=== PATIENT | male | born 1940 | race Caucasian/White ===

== ENCOUNTER 2016-08-04 14:59 | Emergency (ER) | payer MEDICARE ==
[~2016-08-04 14:59] MED LIST: ALDA2525 PO; ALPR2TAB3 PO; AMLO2.5T PO; CYCL1PAK PO; CYMB30CA PO; FLEEENE3 RE; JANT5TAB2 PO; LOSA50TA PO; OXYC-68 PO; PERC7.5T13 PO; POLY119S PO; ZOLP10TA3 PO
[2016-08-04 15:01] VITALS: BP 185/97; PULSE 95; RESP 17; TEMP 97.7; O2SAT 94
--- NOTE | 2016-08-04 15:06 | PD ---
Physical Exam Date Seen by Provider: Aug 04, 2016 Time Seen by Provider: 15:02 Narrative Pt c/o chest pain in left upper chest x 1 week. Pt has dementia and states he has been depressed and crying. states for the last 3 weeks he has been more confused. No recent falls. reports that he has frequency and urgency. VSS. Data Data Last Documented VS Vital Signs Date Time Temp Pulse Resp B/P Pulse Ox O2 Delivery O2 Flow Rate FiO2 08/04/16 15:01 97.7 95 17 185/97 94 MDM Supervised Visit with ADAM: Reena Klein Aug 04, 2016 15:06
[2016-08-04 15:34] VITALS: BP 164/81; PULSE 83; O2SAT 93
[2016-08-04 15:45] VITALS: O2SAT 93
[2016-08-04] MEDS ORDERED: SODIUM CHLORIDE 0.9% FLUSH 10 ML FLUSH IVF PRN (15:45)
[2016-08-04] MEDS ORDERED: ASPIRIN 81 MG CHEW TAB PO ONE (15:45)
[2016-08-04 15:59] LABS: BASOPHIL # 0.1 TH/MM3 (0-0.2); BASOPHIL % 0.8 % (0.0-2.0); EOSINOPHIL # 0.3 TH/MM3 (0-0.4); EOSINOPHIL % 2.8 % (0.0-4.0); HEMATOCRIT 45.8 % (39.0-51.0); HEMO FLAGS DIFF FINAL; LYMPH % 18.3 % (9.0-44.0); LYMPHOCYTE # 2.1 TH/MM3 (1.0-4.8); MEAN CORPUSCULAR HEMOGLOBIN 30.8 PG (27.0-34.0); MEAN CORPUSCULAR HGB CONC 34.6 % (32.0-36.0); MONO % 8.9 % (0.0-8.0); NEUT % 69.2 % (16.0-70.0); PLATELET COUNT 296 TH/MM3 (150-450); RED BLOOD COUNT 5.14 MIL/MM3 (4.50-5.90); RED CELL DISTRIBUTION WIDTH 13.4 % (11.6-17.2); WHITE BLOOD COUNT 11.6 TH/MM3 (4.0-11.0)
[2016-08-04] MEDS ORDERED: LOSA100T PO (16:06)
[2016-08-04] MEDS ORDERED: MOBI15TA PO (16:06)
[2016-08-04] MEDS ORDERED: ALPR.5 PO (16:06)
[2016-08-04] MEDS ORDERED: ZOLP10TA3 PO (16:06)
[2016-08-04] MEDS ORDERED: CYMB60CA PO (16:06)
[2016-08-04] MEDS ORDERED: GABA100C4 PO (16:06)
[2016-08-04] MEDS ORDERED: HYDR-3535 PO (16:06)
[2016-08-04] MEDS ORDERED: AMLO5TAB2 PO (16:06)
--- NOTE | 2016-08-04 16:08 | RADRPT ---
EXAM DATE/TIME: 08/04/2016 15:45 [facility] COMPARISON: No previous studies available for comparison. INDICATIONS : Chest pain and discomfort for the past two weeks. MEDICAL HISTORY : Hypertension. SURGICAL HISTORY : CABG Appendectomy.Cholecystectomy. ENCOUNTER: Initial ACUITY: 2 weeks PAIN SCORE: 5/10 LOCATION: Bilateral chest FINDINGS: A single view of the chest demonstrates the lungs to be symmetrically aerated without evidence of mas s, infiltrate or effusion. The cardiomediastinal contours are unremarkable. Osseous structures are intact. The patient is status post median sternotomy for coronary artery bypass grafting procedure. T here are overlying Electrocardiogram leads. CONCLUSION: No acute disease. Ishan Mccloud MD on August 04, 2016 at 16:04 Board Certified Radiologist. This report was verified electronically.
[2016-08-04 16:10] LABS: APTT (PATIENT) 29.2 SEC (24.3-30.1); PROTHROMBIN TIME - PATIENT 11.4 SEC (9.8-11.6)
[2016-08-04 16:19] LABS: ALT (GPT) 28 U/L (12-78); ANION GAP 11 MEQ/L (5-15); AST (GOT) 28 U/L (15-37); BICARBONATE 25.6 MEQ/L (21.0-32.0); BLOOD UREA NITROGEN 22 MG/DL (7-18); CHLORIDE 105 MEQ/L (98-107); GLOMERULAR FILTRATION RATE 49 ML/MIN (>89); SODIUM (NA) 142 MEQ/L (136-145)
[2016-08-04 16:20] LABS: ALKALINE PHOSPHATASE 84 U/L (45-117); TOTAL BILIRUBIN ADULT 0.7 MG/DL (0.2-1.0)
[2016-08-04 16:23] LABS: POTASSIUM 3.6 MEQ/L (3.5-5.1)
[2016-08-04 16:43] VITALS: BP 142/86; PULSE 81
[2016-08-04 17:36] LABS: BLOOD, URINE NEG (NEG); COMMENT (UR) CULT NOT INDICATED; CULTURE IF INDICATED CULT NOT INDICATED; GLUCOSE,URINE NEG (NEG); HYALINE CAST, URINE 16 /lpf (RARE); KETONE, URINE NEG (NEG); MUCUS URINE FEW /lpf (OCC); NITRITE,URINE NEG (NEG); PH, URINE 5.5 (5.0-8.5); URINE COLOR YELLOW (YELLW/STRAW)
--- NOTE | 2016-08-04 18:13 | PD ---
HPI Chief Complaint: Chest Pain Time Seen by Provider: 15:34 Travel History International Travel<30 days: No Contact w/Intl Traveler<30days: No Traveled to known affect area: No History of Present Illness HPI To 76 year-old woman who presents to the emergency department complaining of increased confusion for the past 3 weeks, crying nearly continuously, with a history dementia. Also over the past week is increased shortness of breath with dyspnea on exertion. He is some associated cough. Nonproductive. No fevers or chills. No lower extremity edema. All with this she's had some chest pain and chest tightness on the left side. Is been ongoing for the past 1 -2 weeks as well. Does seem to be worse with exertion. Patient is a history of CAD with a CABG back in the 90s. No problems since. On stress test about a year ago. History Past Medical History Narrative Medical CAD, CABG, [place] Hypertension Dementia Influenza Vaccination: No Social History Alcohol Use: No Tobacco Use: Yes (occ cigars) Allergies-Medications (Allergen,Severity, Reaction): Coded Allergies: No Known Allergies (Unverified , 08/04/16) Reported Meds & Prescriptions Reported Meds & Active Scripts Active Reported Losartan (Losartan Potassium) 100 Mg Tab 100 Mg PO DAILY Gabapentin 100 Mg Cap 100 Mg PO HS Zolpidem (Zolpidem Tartrate) 10 Mg Tab 10 Mg PO HS Lortab (Hydrocodone-Acetaminophen) 10-325 Mg Tab 1 Tab PO Q6H PRN Mobic (Meloxicam) 15 Mg Tab 15 Mg PO DAILY PRN Cymbalta DR (Duloxetine HCl) 60 Mg Capdr 60 Mg PO DAILY Amlodipine (Amlodipine Besylate) 5 Mg Tab 5 Mg PO DAILY Xanax (Alprazolam) 0.5 Mg Tab 0.5 Mg PO DAILY Review of Systems Except as stated in HPI: all other systems reviewed are Neg Physical Exam Narrative GENERAL: Well-appearing 76-year-old man, no acute distress. SKIN: Focused skin assessment warm/dry. HEAD: Atraumatic. Normocephalic. CARDIOVASCULAR: Regular rate and rhythm. No murmur appreciated. RESPIRATORY: No accessory muscle use. Clear to auscultation. Breath sounds equal bilaterally. GASTROINTESTINAL: Abdomen soft, non-tender, nondistended. Hepatic and splenic margins not palpable. MUSCULOSKELETAL: No obvious deformities. No edema. NEUROLOGICAL: Awake and alert. No obvious cranial nerve deficits. Motor grossly within normal limits. Normal speech. PSYCHIATRIC: Appropriate mood and affect; insight and judgment normal. Data Data Last Documented VS Vital Signs Date Time Temp Pulse Resp B/P Pulse Ox O2 Delivery O2 Flow Rate FiO2 08/04/16 17:23 Room Air 08/04/16 16:43 81 142/86 08/04/16 15:45 93 08/04/16 15:01 97.7 17 Orders Electrocardiogram (08/04/16 15:34) Complete Blood Count With Diff (08/04/16 15:34) Comprehensive Metabolic Panel (08/04/16 15:34) Magnesium (Mg) (08/04/16 15:34) Prothrombin Time / Inr (Pt) (08/04/16 15:34) Act Partial Throm Time (Ptt) (08/04/16 15:34) Troponin I (08/04/16 15:34) Lipase (08/04/16 15:34) Chest, Single Ap (08/04/16 15:34) Ecg Monitoring (08/04/16 15:34) Bilateral Bp Monitoring (08/04/16 15:34) Iv Access Insert/Monitor (08/04/16 15:34) Oximetry (08/04/16 15:34) Oxygen Administration (08/04/16 15:34) Aspirin Chew (Aspirin Chew) (08/04/16 15:45) Sodium Chloride 0.9% Flush (Ns Flush) (08/04/16 15:45) Urinalysis - C+S If Indicated (08/04/16 15:43) Labs Laboratory Tests Test 08/04/16 08/04/16 15:35 17:22 White Blood Count 11.6 TH/MM3 Red Blood Count 5.14 MIL/MM3 Hemoglobin 15.8 GM/DL Hematocrit 45.8 % Mean Corpuscular Volume 89.0 FL Mean Corpuscular Hemoglobin 30.8 PG Mean Corpuscular Hemoglobin 34.6 % Concent Red Cell Distribution Width 13.4 % Platelet Count 296 TH/MM3 Mean Platelet Volume 7.9 FL Neutrophils (%) (Auto) 69.2 % Lymphocytes (%) (Auto) 18.3 % Monocytes (%) (Auto) 8.9 % Eosinophils (%) (Auto) 2.8 % Basophils (%) (Auto) 0.8 % Neutrophils # (Auto) 8.0 TH/MM3 Lymphocytes # (Auto) 2.1 TH/MM3 Monocytes # (Auto) 1.0 TH/MM3 Eosinophils # (Auto) 0.3 TH/MM3 Basophils # (Auto) 0.1 TH/MM3 CBC Comment DIFF FINAL Differential Comment Prothrombin Time 11.4 SEC Prothromb Time International 1.0 RATIO Ratio Activated Partial 29.2 SEC Thromboplast Time Sodium Level 142 MEQ/L Potassium Level 3.6 MEQ/L Chloride Level 105 MEQ/L Carbon Dioxide Level 25.6 MEQ/L Anion Gap 11 MEQ/L Blood Urea Nitrogen 22 MG/DL Creatinine 1.41 MG/DL Estimat Glomerular Filtration 49 ML/MIN Rate Random Glucose 135 MG/DL Calcium Level 9.3 MG/DL Magnesium Level 2.0 MG/DL Total Bilirubin 0.7 MG/DL Aspartate Amino Transf 28 U/L (AST/SGOT) Alanine Aminotransferase 28 U/L (ALT/SGPT) Alkaline Phosphatase 84 U/L Troponin I 0.02 NG/ML Total Protein 7.8 GM/DL Albumin 3.9 GM/DL Lipase 212 U/L Urine Color YELLOW Urine Turbidity CLEAR Urine pH 5.5 Urine Specific [place] 1.019 Urine Protein TRACE mg/dL Urine Glucose (UA) NEG mg/dL Urine Ketones NEG mg/dL Urine Occult Blood NEG Urine Nitrite NEG Urine Bilirubin NEG Urine Urobilinogen 2.0 MG/DL Urine Leukocyte Esterase NEG Urine RBC 2 /hpf Urine WBC 1 /hpf Urine Hyaline Casts 16 /lpf Urine Mucus FEW /lpf Microscopic Urinalysis Comment CULT NOT INDICATED MDM Medical Decision Making Medical Screen Exam Complete: Yes Emergency Medical Condition: Yes Interpretation(s) Normal sinus rhythm at a rate of 86, normal axis, normal intervals, no definite evidence of acute ischemia. Some nonspecific lateral ST changes. No old for comparison. LABS: CBC is unremarkable. CMP remarkable for mildly elevated BUN/creatinine Troponin negative Lipase normal Coags unremarkable UA unremarkable Chest x-ray:No acute disease. Differential Diagnosis ACS, infection, depression, delirium, dementia, other Narrative Course Medical decision making 76 year-old man presents emergent arm multiple complaints. Most notably is having some increase confusion and dementia symptoms with increased tearfulness and emotional lability. He is also having some chest pain and shortness of breath. Initial workup looks unremarkable. Patient will be a candidate for admission to chest pain Center for further evaluation however given the patient' s dementia, most lability, worsening confusion especially night, this will come at some risk. I spoke to the family and we discussed a comminuted prefer for the patient to follow-up with his outpatient doctor at home. I think this is reasonable given his age and comorbidities. Diagnosis Primary Impression: Chest pain Additional Instructions: Follow-up with her primary doctor in the next one to 2 days. Return to the emergency department worsening chest pain, trouble breathing, or any other new or worsening symptoms. Med/Other Pt SpecificInfo: No Change to Meds Disposition: 01 DISCHARGE HOME Condition: Stable Bahman Suero MD Aug 04, 2016 18:13
[2016-08-04 18:25] VITALS: BP 160/74
--- NOTE | 2016-08-05 10:49 | EKG ---
Date Performed: 08/04/2016 Time Performed: 15:16:47 PTAGE: 76 years EKG: Sinus rhythm MODERATE INTRAVENTRICULAR CONDUCTION DELAY NONSPECIFIC ST & T-WAVE ABNORMALITY BORDERLINE ECG Compar ed to prior tracing no significant change DOCTOR: Candi Ryder Interpretating Date/Time 08/05/2016 10:48:17
== END 2016-08-04 18:30 | disposition home or self-care (01) ==
LOC: NEPE 14:59
DX: R07.9 Chest pain, unspecified (principal); R06.02 Shortness of breath; R94.31 Abnormal electrocardiogram [ECG] [EKG]; F03.90 Unspecified dementia, unspecified severity, without behavioral disturbance, psychotic disturbance, mood disturbance, and anxiety
CPT/HCPCS: 71010; 80053; 81001; 83690; 83735; 84484; 85025; 85610; 85730; 93005

== ENCOUNTER 2016-11-04 10:09 | Emergency (ER) | payer MEDICARE ==
[~2016-11-04] VITALS: Ht 182.9 cm; Wt 82.5 kg
[~2016-11-04 10:09] MED LIST changes: -ALDA2525 PO; +ALPR.5 PO; -ALPR2TAB3 PO; -AMLO2.5T PO; +AMLO5TAB2 PO; -CYCL1PAK PO; -CYMB30CA PO; +CYMB60CA PO; -FLEEENE3 RE; +GABA100C4 PO; +HYDR-3535 PO; -JANT5TAB2 PO; +LOSA100T PO; -LOSA50TA PO; +MOBI15TA PO; -OXYC-68 PO; -PERC7.5T13 PO; -POLY119S PO
[2016-11-04 10:12] VITALS: BP 189/100; PULSE 92; RESP 20; TEMP 97.4; O2SAT 97
--- NOTE | 2016-11-04 12:25 | PD ---
HPI Chief Complaint: Neuro Symptoms/ Deficits Time Seen by Provider: 12:23 Travel History International Travel<30 days: No Contact w/Intl Traveler<30days: No Traveled to known affect area: No History of Present Illness HPI 76 YO M with PMH of lumbar stenosis with neurogenic claudication, degenerative cervical spinal stenosis, vertebral artery obstruction, stroke, CAD status post CABG 4, dementia presents to the ED for evaluation of 10 day history of malaise , intermittent dizziness, increased low back pain, unsteady gait, increased forgetfulness, depression. Patient endorses occasional left sided CP. Denies palpitations, SOB, N/V, abdominal pain, anorexia, melena, hematochezia, dysuria. Patient's is at bedside and states that "he falls all the time." Patient states that he has 15 brothers and sisters are all and "It's time that I join them." He denies suicidal or homicidal ideation. The is at bedside and states that the patient has been increasingly irritable with episodes of anger. PCP Dr. Henderson. [facility] Past Medical History Hx Anticoagulant Therapy: Yes Cardiovascular Problems: Yes (FOUR VESSEL CABG) High Cholesterol: Yes Chest Pain: Yes Cerebrovascular Accident: Yes Dementia: Yes Inguinal Hernia: Yes (surgical repair) Triglycerides - High: Yes Past Surgical History Abdominal Surgery: Yes (hernia) Cholecystectomy: Yes Coronary Artery Bypass Graft: Yes Social History Alcohol Use: No (hx) Tobacco Use: No (used to smoke ) Substance Use: No Allergies-Medications (Allergen,Severity, Reaction): Coded Allergies: No Known Allergies (Unverified , 11/04/16) Reported Meds & Prescriptions Reported Meds & Active Scripts Active Reported Wellbutrin Xl 24 HR (Bupropion HCl) 150 Mg Tab 150 Mg PO DAILY Hydrochlorothiazide 25 Mg Tab 25 Mg PO DAILY Galantamine ER (Galantamine Hydrobromide) 8 Mg Caper 8 Mg PO DAILY Losartan (Losartan Potassium) 100 Mg Tab 100 Mg PO DAILY Zolpidem (Zolpidem Tartrate) 10 Mg Tab 10 Mg PO HS Lortab (Hydrocodone-Acetaminophen) 10-325 Mg Tab 1 Tab PO Q6H PRN Mobic (Meloxicam) 15 Mg Tab 15 Mg PO DAILY PRN Cymbalta DR (Duloxetine HCl) 60 Mg Capdr 60 Mg PO DAILY Amlodipine (Amlodipine Besylate) 5 Mg Tab 5 Mg PO DAILY Xanax (Alprazolam) 0.5 Mg Tab 0.5 Mg PO DAILY PRN Review of Systems Except as stated in HPI: all other systems reviewed are Neg Physical Exam Narrative GENERAL: Well-nourished, well-developed elderly white male in no acute distress. SKIN: Focused skin assessment warm/dry. HEAD: Normocephalic. EYES: No scleral icterus. No injection or drainage. NECK: Supple, trachea midline. No JVD or lymphadenopathy. CARDIOVASCULAR: Regular rate and rhythm without murmurs, gallops, or rubs. CHEST: Nontender throughout without deformity or crepitus. No retractions or use of accessory muscles. RESPIRATORY: Breath sounds clear and equal bilaterally. No accessory muscle use. GASTROINTESTINAL: Abdomen soft, non-tender, nondistended. Active bowel sounds. MUSCULOSKELETAL: No cyanosis, or edema. Homans sign negative bilaterally. NEUROLOGICAL: Awake and alert. Cranial nerves II through XII intact. Motor and sensory grossly within normal limits. 4/5 strength in LLE. 5/5 muscle strength in all other muscle groups. Normal speech. BACK: No obvious deformity. No CVA tenderness. ++ midline TTP in the lumbar midline Data Data Last Documented VS Vital Signs Date Time Temp Pulse Resp B/P Pulse Ox O2 Delivery O2 Flow Rate FiO2 11/04/16 13:15 73 15 179/98 96 Room Air 11/04/16 10:12 97.4 Orders Electrocardiogram (11/04/16 13:04) Complete Blood Count With Diff (11/04/16 13:04) Comprehensive Metabolic Panel (11/04/16 13:04) Magnesium (Mg) (11/04/16 13:04) B-Type Natriuretic Peptide (11/04/16 13:04) Ckmb (Isoenzyme) Profile (11/04/16 13:04) Troponin I (11/04/16 13:04) Act Partial Throm Time (Ptt) (11/04/16 13:04) Prothrombin Time / Inr (Pt) (11/04/16 13:04) Urinalysis - C+S If Indicated (11/04/16 13:04) Chest, Single Ap (11/04/16 13:04) Ct Brain W/O Iv Contrast(Rout) (11/04/16 13:04) Ecg Monitoring (11/04/16 13:04) Iv Access Insert/Monitor (11/04/16 13:04) Oximetry (11/04/16 13:04) Sodium Chloride 0.9% Flush (Ns Flush) (11/04/16 13:15) Ct Lumb Spine W/O Contrast (11/04/16 13:04) Psych Screen (11/04/16 14:31) Sodium Chlorid 0.9% 500 Ml Inj (Ns 500 M (11/04/16 15:15) Sodium Chlorid 0.9% 500 Ml Inj (Ns 500 M (11/04/16 15:15) Labs Laboratory Tests Test 11/04/16 11/04/16 13:30 16:30 White Blood Count 12.1 TH/MM3 Red Blood Count 5.33 MIL/MM3 Hemoglobin 16.7 GM/DL Hematocrit 48.1 % Mean Corpuscular Volume 90.2 FL Mean Corpuscular Hemoglobin 31.4 PG Mean Corpuscular Hemoglobin 34.8 % Concent Red Cell Distribution Width 13.2 % Platelet Count 289 TH/MM3 Mean Platelet Volume 7.5 FL Neutrophils (%) (Auto) 63.7 % Lymphocytes (%) (Auto) 21.3 % Monocytes (%) (Auto) 9.2 % Eosinophils (%) (Auto) 5.5 % Basophils (%) (Auto) 0.3 % Neutrophils # (Auto) 7.7 TH/MM3 Lymphocytes # (Auto) 2.6 TH/MM3 Monocytes # (Auto) 1.1 TH/MM3 Eosinophils # (Auto) 0.7 TH/MM3 Basophils # (Auto) 0.0 TH/MM3 CBC Comment DIFF FINAL Differential Comment Prothrombin Time 11.0 SEC Prothromb Time International 1.0 RATIO Ratio Activated Partial 29.6 SEC Thromboplast Time Sodium Level 142 MEQ/L Potassium Level 3.7 MEQ/L Chloride Level 105 MEQ/L Carbon Dioxide Level 27.0 MEQ/L Anion Gap 10 MEQ/L Blood Urea Nitrogen 21 MG/DL Creatinine 1.19 MG/DL Estimat Glomerular Filtration 60 ML/MIN Rate Random Glucose 91 MG/DL Calcium Level 10.3 MG/DL Magnesium Level 2.1 MG/DL Total Bilirubin 0.6 MG/DL Aspartate Amino Transf 22 U/L (AST/SGOT) Alanine Aminotransferase 29 U/L (ALT/SGPT) Alkaline Phosphatase 77 U/L Total Creatine Kinase 48 U/L Troponin I LESS THAN 0.02 NG/ML B-Type Natriuretic Peptide 14 PG/ML Total Protein 8.3 GM/DL Albumin 4.2 GM/DL Urine Color YELLOW Urine Turbidity CLEAR Urine pH 5.5 Urine Specific [place] 1.022 Urine Protein TRACE mg/dL Urine Glucose (UA) NEG mg/dL Urine Ketones NEG mg/dL Urine Occult Blood NEG Urine Nitrite NEG Urine Bilirubin NEG Urine Urobilinogen 2.0 MG/DL Urine Leukocyte Esterase NEG Urine RBC 3 /hpf Urine WBC 1 /hpf Urine Amorphous Sediment RARE Urine Hyaline Casts 6 /lpf Urine Mucus FEW /lpf Microscopic Urinalysis Comment CULT NOT INDICATED MDM Medical Decision Making Medical Screen Exam Complete: Yes Emergency Medical Condition: Yes Differential Diagnosis depression versus UTI versus PNA versus ACS versus TIA versus hemorrhagic stroke versus acute on chronic back pain versus spinal stenosis versus other Narrative Course 76 YO M with PMH of lumbar stenosis with neurogenic claudication, degenerative cervical spinal stenosis, vertebral artery obstruction, stroke, CAD status post CABG 4, dementia presents to the ED for evaluation of 10 day history of malaise , intermittent dizziness, increased low back pain, unsteady gait, increased forgetfulness, depression. Patient endorses occasional left sided CP. Patient's is at bedside and states that "he falls all the time." Patient states that he has 15 brothers and sisters are all and "It's time that I join them." He denies suicidal or homicidal ideation. also states that the patient has been increasingly irritable with episodes of anger. PCP Dr. Henderson. Vitals reviewed. Patient is hypertensive, states that he hasn't taken his BP med today. No focal neural defects. Regular rate and rhythm without appreciable murmurs rubs or gallops. Chest clear to auscultation bilaterally. Abdomen soft, nontender. No CVA tenderness. No lower extremity edema. Mild midline tenderness in the lumbar area. Rate 78, sinus rhythm with first-degree AV block. IA interval 211, QRS 116, QTc 437. No acute ST changes. Reviewed by Dr. Garrido. Cardiac enzymes negative 1. CXR: Negative for acute process, no overt failure per radiology read. CBC: WBC 12.1, hemoglobin 16.7. INR 1.0. CMP: BUN 21, creatinine 1.19. Calcium 10.3. BNP 14, UA: No culture indicated. CT brain: Vascular calcification including intracranial vessels per radiology read. Lumbar spine CT: Degenerative changes with transpedicular fixation. No evidence of hardware failure per radiology read. The patient was administered 1 L NS IV. The patient was evaluated by the psych screener who recommended admission for further psychiatric evaluation. However, the patient refuses at this time. He is not actively suicidal and a [place] Act is inappropriate. He's discharged with instructions to see the psychiatrist on an outpatient basis. He and his indicated understanding of the instructions. The patient is stable and discharged home. Diagnosis Primary Impression: Depression Qualified Code: F32.9 - Depression, unspecified depression type Additional Impression: Malaise and fatigue Referrals: Petey Patel MD Additional Instructions: Follow-up with Dr. Ignacio or Dr. Patel as discussed with the psychiatric screener. Return to the ED for any urgent or emergent medical condition. Disposition: 01 DISCHARGE HOME Condition: Stable Guillermina Harrison Nov 04, 2016 12:25
[2016-11-04] MEDS ORDERED: BUPR150XL PO (12:55)
[2016-11-04] MEDS ORDERED: GALA8CAP PO (12:55)
[2016-11-04] MEDS ORDERED: HYDR25TA5 PO (12:55)
[2016-11-04 13:15] VITALS: BP 179/98; PULSE 73; RESP 15; O2SAT 96
[2016-11-04] MEDS ORDERED: SODIUM CHLORIDE 0.9% FLUSH 10 ML FLUSH IVF PRN (13:15)
[2016-11-04 13:39] LABS: AUTOMATED NEUTROPHIL # 7.7 TH/MM3 (1.8-7.7); BASOPHIL % 0.3 % (0.0-2.0); EOSINOPHIL # 0.7 TH/MM3 (0-0.4); EOSINOPHIL % 5.5 % (0.0-4.0); HEMATOCRIT 48.1 % (39.0-51.0); HEMO FLAGS DIFF FINAL; LYMPH % 21.3 % (9.0-44.0); LYMPHOCYTE # 2.6 TH/MM3 (1.0-4.8); MEAN CELL VOLUME 90.2 FL (80.0-100.0); MEAN CORPUSCULAR HEMOGLOBIN 31.4 PG (27.0-34.0); MEAN CORPUSCULAR HGB CONC 34.8 % (32.0-36.0); MONO % 9.2 % (0.0-8.0); NEUT % 63.7 % (16.0-70.0); PLATELET COUNT 289 TH/MM3 (150-450); RED BLOOD COUNT 5.33 MIL/MM3 (4.50-5.90); RED CELL DISTRIBUTION WIDTH 13.2 % (11.6-17.2); WHITE BLOOD COUNT 12.1 TH/MM3 (4.0-11.0)
[2016-11-04 13:51] LABS: APTT (PATIENT) 29.6 SEC (24.3-30.1)
[2016-11-04 14:06] LABS: ANION GAP 10 MEQ/L (5-15); AST (GOT) 22 U/L (15-37); BLOOD UREA NITROGEN 21 MG/DL (7-18); CHLORIDE 105 MEQ/L (98-107); GLOMERULAR FILTRATION RATE 60 ML/MIN (>89); MAGNESIUM 2.1 MG/DL (1.5-2.5); POTASSIUM 3.7 MEQ/L (3.5-5.1); SODIUM (NA) 142 MEQ/L (136-145)
[2016-11-04 14:07] LABS: ALKALINE PHOSPHATASE 77 U/L (45-117); ALT (GPT) 29 U/L (12-78); CREATINE KINASE 48 U/L (39-308); TOTAL BILIRUBIN ADULT 0.6 MG/DL (0.2-1.0)
--- NOTE | 2016-11-04 14:15 | RADRPT ---
EXAM DATE/TIME: 11/04/2016 13:16 [facility] COMPARISON: CHEST SINGLE AP, August 04, 2016, 15:45. INDICATIONS : Back pain and short of breath. MEDICAL HISTORY : None. SURGICAL HISTORY : CABG. Appendectomy.Cholecystectomy. Hernirrhaphy, back surgery ENCOUNTER: Initial ACUITY: 2 days PAIN SCORE: 5/10 LOCATION: Bilateral chest FINDINGS: A single view of the chest demonstrates the lungs to be symmetrically aerated without evidence of mas s, infiltrate or effusion. Sternal wires and bypass are noted.. Osseous structures are intact. CONCLUSION: Negative for an acute process. There is no overt congestive failure. Pedro Coffey MD FACR on November 04, 2016 at 14:13 Board Certified Radiologist. This report was verified electronically.
--- NOTE | 2016-11-04 14:56 | RADRPT ---
EXAM DATE/TIME: 11/04/2016 14:14 [facility] COMPARISON: No previous studies available for comparison. INDICATIONS : Dizziness. RADIATION DOSE: 56.35 CTDIvol (mGy) MEDICAL HISTORY : Cardiovascular disease. Dementia. SURGICAL HISTORY : CABG Appendectomy.Cholecystectomy. ENCOUNTER: Initial ACUITY: 1 day PAIN SCALE: 0/10 LOCATION: cranial TECHNIQUE: Multiple contiguous axial images were obtained of the head. Using automated exposure control and adj ustment of the mA and/or kV according to patient size, radiation dose was kept as low as reasonably a chievable to obtain optimal diagnostic quality images. DICOM format image data is available electro nically for review and comparison. FINDINGS: There is marked central and cortical atrophy with dilatation of ventricular and sulcal spaces. There is no parenchymal hemorrhage, acute infarction or mass lesion identified. Moderate intracranial vas cular calcifications are noted. There are no extra-axial fluid collections appreciated. The posteri or fossa is unremarkable with midline fourth ventricle. Moderate vertebrobasilar calcifications are noted. The portion of the orbits and paranasal sinuses visualized are unremarkable. CONCLUSION: 1. Atrophy the periventricular white matter changes 2. Marked vascular calcification including intracranial vessels. Pedro Coffey MD FACR on November 04, 2016 at 14:54 Board Certified Radiologist. This report was verified electronically.
[2016-11-04] MEDS ORDERED: SODIUM CHLORID 0.9% 500 ML INJ 500 ML IV ONE (15:15)
[2016-11-04] MEDS ORDERED: SODIUM CHLORID 0.9% 500 ML INJ 500 ML IV SCH (15:15)
--- NOTE | 2016-11-04 15:33 | RADRPT ---
EXAM DATE/TIME: 11/04/2016 14:18 [facility] COMPARISON: No previous studies available for comparison. INDICATIONS : Back pain. RADIATION DOSE: 23.54 CTDIvol (mGy) MEDICAL HISTORY : Cardiovascular disease. Dementia. SURGICAL HISTORY : CABG Appendectomy. Cholecystectomy. ENCOUNTER: Initial ACUITY: 1 day PAIN SCALE: 6/10 LOCATION: Back TECHNIQUE: Volumetric scanning of the lumbar spine was performed. Multiplanar reconstructions in the sagittal, coronal and oblique axial planes were performed. Using automated exposure control and adjustment of the mA and/or kV according to patient size, radiation dose was kept as low as reasonably achievable t o obtain optimal diagnostic quality images. DICOM format image data is available electronically for review and comparison. FINDINGS: Patient is status post transpedicular fixation at L4-5 with persistent back pain. There are mild degenerative changes at T11-T12 with minimal interspace ridging. T12-L1: The thecal sac has a normal diameter. No evidence of disc bulge or protrusion. The neural foramina are patent bilaterally. L1-L2: Mild degenerative changes are present in the facets. There is no significant spinal stenosis.. L2-L3: Vacuum changes evident with minimal generalized disc bulging and mild bilateral neural foramina encro achment. L3-L4: Mild disc bulging is present with minimal facet disease. L4-L5: There is transpedicular fixation at the L4-5 level. Hardware is intact. Alignment is anatomic. . L5-S1: There is generalized bulging at L5-S1 eccentric to the right causing some flattening of the anterior thecal space. There are moderate degenerative changes present at both SI joints. Retroperitoneum is unremarkable. Moderate vascular calcifications are noted. There is no adenopathy evident. CONCLUSION: Degenerative changes with transpedicular fixation. I do not see evidence for hardware failure. Pedro Coffey MD FACR on November 04, 2016 at 15:23 Board Certified Radiologist. This report was verified electronically.
[2016-11-04 17:13] LABS: BLOOD, URINE NEG (NEG); COMMENT (UR) CULT NOT INDICATED; CULTURE IF INDICATED CULT NOT INDICATED; GLUCOSE,URINE NEG (NEG); HYALINE CAST, URINE 6 /lpf (RARE); KETONE, URINE NEG (NEG); MUCUS URINE FEW /lpf (OCC); NITRITE,URINE NEG (NEG); PH, URINE 5.5 (5.0-8.5); URINE COLOR YELLOW (YELLW/STRAW)
--- NOTE | 2016-11-05 13:00 | EKG ---
Date Performed: 11/04/2016 Time Performed: 13:50:55 PTAGE: 76 years EKG: Sinus rhythm WITH FIRST DEGREE AV BLOCK MODERATE INTRAVENTRICULAR CONDUCTION DELAY NONSPECIFIC ST & T-WAVE ABNORM ALITY ABNORMAL ECG PREVIOUS TRACING : 08/04/2016 15.16 DOCTOR: Anjel Arnold Interpretating Date/Time 11/05/2016 12:54:09
== END 2016-11-04 18:29 | disposition home or self-care (01) ==
LOC: NEPE 10:09
DX: F32.9 Major depressive disorder, single episode, unspecified (principal); M48.02 Spinal stenosis, cervical region; M48.06 Spinal stenosis, lumbar region; I25.10 Atherosclerotic heart disease of native coronary artery without angina pectoris; R94.31 Abnormal electrocardiogram [ECG] [EKG]; R07.9 Chest pain, unspecified; E78.00 Pure hypercholesterolemia, unspecified; R53.81 Other malaise; F03.90 Unspecified dementia, unspecified severity, without behavioral disturbance, psychotic disturbance, mood disturbance, and anxiety
CPT/HCPCS: 70450; 71010; 72131; 80053; 81001; 82550; 83735; 83880; 84484; 85025; 85610; 85730; 93005; 99285; J7040

== ENCOUNTER 2017-01-27 13:37 | Inpatient (IN) | payer MEDICARE ==
[~2017-01-27] VITALS: Ht 185.4 cm; Wt 98.8 kg
[~2017-01-27 13:37] MED LIST changes: +BUPR150XL PO; -GABA100C4 PO; +GALA8CAP PO; +HYDR25TA5 PO
[2017-01-27 13:39] VITALS: BP 159/104; PULSE 80; RESP 18; TEMP 97.9; O2SAT 97
[2017-01-27 17:57] LABS: AUTOMATED NEUTROPHIL # 5.8 TH/MM3 (1.8-7.7); BASOPHIL # 0.1 TH/MM3 (0-0.2); BASOPHIL % 1.1 % (0.0-2.0); EOSINOPHIL # 0.7 TH/MM3 (0-0.4); EOSINOPHIL % 6.6 % (0.0-4.0); HEMATOCRIT 45.6 % (39.0-51.0); HEMO FLAGS DIFF FINAL; LYMPH % 28.1 % (9.0-44.0); LYMPHOCYTE # 2.9 TH/MM3 (1.0-4.8); MEAN CELL VOLUME 90.3 FL (80.0-100.0); MEAN CORPUSCULAR HEMOGLOBIN 31.3 PG (27.0-34.0); MEAN CORPUSCULAR HGB CONC 34.7 % (32.0-36.0); NEUT % 56.2 % (16.0-70.0); PLATELET COUNT 286 TH/MM3 (150-450); RED BLOOD COUNT 5.05 MIL/MM3 (4.50-5.90); RED CELL DISTRIBUTION WIDTH 13.1 % (11.6-17.2); WHITE BLOOD COUNT 10.4 TH/MM3 (4.0-11.0)
--- NOTE | 2017-01-27 18:04 | PD ---
HPI Chief Complaint: Medical Clearance Time Seen by Provider: 17:02 Travel History International Travel<30 days: No Contact w/Intl Traveler<30days: No Traveled to known affect area: No History of Present Illness HPI 76-year-old male with a history of dementia was brought in by his after he made several comments that he wanted to shoot himself. She reports last night he was found with a handgun to his chin threatening to shoot himself. She was able to take the gun away from him. She reports he has had multiple episodes of this kind of behavior for the last several months. According to the triage note he made comments wanting to harm himself with a 44. He denies any medical complaint at this time. PFSH Past Medical History Hx Anticoagulant Therapy: Yes Bipolar Disorder: Yes Anxiety: Yes Depression: Yes Cardiovascular Problems: Yes ([place], CABG) High Cholesterol: Yes Chest Pain: Yes Cerebrovascular Accident: Yes Dementia: Yes Diminished Hearing: No Inguinal Hernia: Yes (surgical repair) Psychiatric: Yes Triglycerides - High: Yes Tetanus Vaccination: < 5 Years Influenza Vaccination: No Past Surgical History Abdominal Surgery: Yes (hernia) Cholecystectomy: Yes Coronary Artery Bypass Graft: Yes Social History Alcohol Use: No (hx) Tobacco Use: No (quit 1 years ago) Substance Use: No Allergies-Medications (Allergen,Severity, Reaction): Coded Allergies: No Known Allergies (Unverified , 01/27/17) Reported Meds & Prescriptions Reported Meds & Active Scripts Active Reported Wellbutrin Xl 24 HR (Bupropion HCl) 150 Mg Tab 150 Mg PO DAILY Hydrochlorothiazide 25 Mg Tab 25 Mg PO DAILY Galantamine ER (Galantamine Hydrobromide) 8 Mg Caper 8 Mg PO DAILY Losartan (Losartan Potassium) 100 Mg Tab 100 Mg PO DAILY Lortab (Hydrocodone-Acetaminophen) 10-325 Mg Tab 1 Tab PO Q6H PRN Mobic (Meloxicam) 15 Mg Tab 15 Mg PO DAILY PRN Cymbalta DR (Duloxetine HCl) 60 Mg Capdr 60 Mg PO DAILY Amlodipine (Amlodipine Besylate) 5 Mg Tab 5 Mg PO DAILY Xanax (Alprazolam) 0.5 Mg Tab 0.5 Mg PO DAILY PRN Review of Systems Except as stated in HPI: all other systems reviewed are Neg General / Constitutional: No: Fever Eyes: No: Visual changes HENT: No: Headaches Cardiovascular: No: Chest Pain or Discomfort Physical Exam Narrative GENERAL: Alert elderly male resting comfortably on the stretcher. He is interacting appropriately with his and myself. SKIN: Focused skin assessment warm/dry. HEAD: Atraumatic. Normocephalic. EYES: Pupils equal and round. No scleral icterus. No injection or drainage. ENT: No nasal bleeding or discharge. Mucous membranes pink and moist. NECK: Trachea midline. No JVD. CARDIOVASCULAR: Regular rate and rhythm. No murmur appreciated. RESPIRATORY: No accessory muscle use. Clear to auscultation. Breath sounds equal bilaterally. GASTROINTESTINAL: Abdomen soft, non-tender, nondistended. Hepatic and splenic margins not palpable. MUSCULOSKELETAL: No obvious deformities. No clubbing. No cyanosis. No edema. BACK: No CVA tenderness. No rash. No point tenderness on palpation of the spine. NEUROLOGICAL: Awake and alert. No obvious cranial nerve deficits. Motor grossly within normal limits. Normal speech. PSYCHIATRIC: Appropriate mood and affect; insight and judgment normal. Data Data Last Documented VS Vital Signs Date Time Temp Pulse Resp B/P (MAP) Pulse Ox O2 Delivery O2 Flow Rate FiO2 01/27/17 16:38 76 17 01/27/17 13:39 97.9 159/104 (122) 97 Room Air Orders Orders Complete Blood Count With Diff (01/27/17 17:05) Comprehensive Metabolic Panel (01/27/17 17:05) Urinalysis - C+S If Indicated (01/27/17 17:05) Psych Screen (01/27/17 17:05) Potassium Chloride (Kcl) (01/27/17 20:45) Labs Laboratory Tests Test 01/27/17 17:20 01/27/17 18:15 White Blood Count 10.4 TH/MM3 Red Blood Count 5.05 MIL/MM3 Hemoglobin 15.8 GM/DL Hematocrit 45.6 % Mean Corpuscular Volume 90.3 FL Mean Corpuscular Hemoglobin 31.3 PG Mean Corpuscular Hemoglobin Concent 34.7 % Red Cell Distribution Width 13.1 % Platelet Count 286 TH/MM3 Mean Platelet Volume 7.9 FL Neutrophils (%) (Auto) 56.2 % Lymphocytes (%) (Auto) 28.1 % Monocytes (%) (Auto) 8.0 % Eosinophils (%) (Auto) 6.6 % Basophils (%) (Auto) 1.1 % Neutrophils # (Auto) 5.8 TH/MM3 Lymphocytes # (Auto) 2.9 TH/MM3 Monocytes # (Auto) 0.8 TH/MM3 Eosinophils # (Auto) 0.7 TH/MM3 Basophils # (Auto) 0.1 TH/MM3 CBC Comment DIFF FINAL Differential Comment Blood Urea Nitrogen 20 MG/DL Creatinine 1.21 MG/DL Random Glucose 112 MG/DL Total Protein 7.8 GM/DL Albumin 3.9 GM/DL Calcium Level 9.1 MG/DL Alkaline Phosphatase 89 U/L Aspartate Amino Transf (AST/SGOT) 28 U/L Alanine Aminotransferase (ALT/SGPT) 36 U/L Total Bilirubin 1.1 MG/DL Sodium Level 137 MEQ/L Potassium Level 3.3 MEQ/L Chloride Level 103 MEQ/L Carbon Dioxide Level 27.2 MEQ/L Anion Gap 7 MEQ/L Estimat Glomerular Filtration Rate 58 ML/MIN Urine Color YELLOW Urine Turbidity CLEAR Urine pH 6.0 Urine Specific [place] 1.017 Urine Protein NEG mg/dL Urine Glucose (UA) NEG mg/dL Urine Ketones NEG mg/dL Urine Occult Blood NEG Urine Nitrite NEG Urine Bilirubin NEG Urine Urobilinogen 8.0 MG/DL Urine Leukocyte Esterase NEG Urine WBC 1 /hpf Urine Mucus FEW /lpf Microscopic Urinalysis Comment CULT NOT INDICATED MDM Medical Decision Making Medical Screen Exam Complete: Yes Emergency Medical Condition: Yes Differential Diagnosis Dementia, suicidal ideation, electrolyte abnormality, UTI Narrative Course 76-year-old male brought in by his for suicidal ideation. She reports the last several months her has made multiple comments regarding his desire to harm himself. Last night he was found with a handgun to his chin. She was able to take the gun away from him. He made multiple comments again today stating he wanted to harm himself prompting her to bring him in for evaluation. During the evaluation patient denies any medical complaint. He reports chronic back pain but no increase in pain. He will not confirm or deny suicidal ideation to myself. Patient was placed under Fernandez act. CBC: unremarkable BMP: mild hypokalemia 3.2, replaced in ed UA: no infection Patient is medically cleared and ready for psychiatric evaluation. Vera Euceda Jan 27, 2017 18:04
[2017-01-27 18:12] LABS: ALT (GPT) 36 U/L (12-78); ANION GAP 7 MEQ/L (5-15); AST (GOT) 28 U/L (15-37); BICARBONATE 27.2 MEQ/L (21.0-32.0); BLOOD UREA NITROGEN 20 MG/DL (7-18); CHLORIDE 103 MEQ/L (98-107); GLOMERULAR FILTRATION RATE 58 ML/MIN (>89); POTASSIUM 3.3 MEQ/L (3.5-5.1); SODIUM (NA) 137 MEQ/L (136-145)
[2017-01-27 18:14] LABS: ALKALINE PHOSPHATASE 89 U/L (45-117); TOTAL BILIRUBIN ADULT 1.1 MG/DL (0.2-1.0)
[2017-01-27 18:38] LABS: BLOOD, URINE NEG (NEG); COMMENT (UR) CULT NOT INDICATED; CULTURE IF INDICATED CULT NOT INDICATED; GLUCOSE,URINE NEG (NEG); KETONE, URINE NEG (NEG); MUCUS URINE FEW /lpf (OCC); NITRITE,URINE NEG (NEG); URINE COLOR YELLOW (YELLW/STRAW)
[2017-01-27] MEDS ORDERED: POTASSIUM CHLORIDE 20 MEQ CONTROLLED RELEASE TAB PO ONE (20:45)
[2017-01-27] MEDS ORDERED: MAGNESIUM HYDROXIDE SUSP 30 ML CUP PO PRN (22:15)
[2017-01-27] MEDS ORDERED: ACETAMINOPHEN 325 MG TAB PO PRN (22:15)
[2017-01-27] MEDS ORDERED: LORazepam 2 MG/ML VIAL IM PRN (22:15)
[2017-01-27] MEDS ORDERED: MELOXICAM 15 MG TAB PO PRN (22:15)
[2017-01-27] MEDS ORDERED: ALUMINUM/MAGNESIUM/SIMETH 30 ML CUP PO PRN (22:15)
[2017-01-27] MEDS ORDERED: ALPRAZolam 0.5 MG TAB PO PRN (22:15)
[2017-01-27] MEDS ORDERED: ACETAMINOPHEN/HYDROcodone 325 MG/10 MG TAB PO PRN (22:30)
[2017-01-27 22:40] VITALS: BP 158/83; PULSE 72; RESP 18; TEMP 97.4; O2SAT 95
[2017-01-28 06:46] VITALS: BP 121/60; PULSE 68; RESP 16; TEMP 97.8; O2SAT 92
[2017-01-28] MEDS: GALANTAMINE HYDROBROMIDE 4 MG TAB PO SCH ×2 (09:25→21:06)
[2017-01-28] MEDS: amLODIPine BESYLATE 5 MG TAB PO SCH (09:25)
[2017-01-28] MEDS: DULoxetine HCl DR 60 MG CAP PO SCH (09:25)
[2017-01-28] MEDS: HYDROCHLOROTHIAZIDE 25 MG TAB PO SCH (09:25)
[2017-01-28] MEDS: LOSARTAN 50 MG TAB PO SCH (09:25)
[2017-01-28] MEDS: buPROPion HCL 150 MG SUSTAINED RELEASE TAB PO SCH (09:25)
[2017-01-28 11:31] LABS: ANION GAP 8 MEQ/L (5-15); BICARBONATE 26.7 MEQ/L (21.0-32.0); BLOOD UREA NITROGEN 17 MG/DL (7-18); CHLORIDE 105 MEQ/L (98-107); GLOMERULAR FILTRATION RATE 75 ML/MIN (>89); POTASSIUM 3.3 MEQ/L (3.5-5.1); SODIUM (NA) 140 MEQ/L (136-145)
[2017-01-28 11:41] LABS: FREE T4 1.19 NG/DL (0.76-1.46); HDL CHOLESTEROL 28.5 MG/DL (40.0-60.0); LDL CHOLESTEROL 126 MG/DL (0-99)
--- NOTE | 2017-01-28 13:56 | PD.CONS ---
HPI Service [facility] Hospitalists Consult Requested By Dr. Stevenson Armstrong Reason for Consult Medical Management Primary Care Physician Augustine Henderson M.D. Diagnoses: History of Present Illness Mr. Leary is a 76 y/o male with dementia, lumbar stenosis with neurogenic claudication, degenerative cervical spinal stenosis, vertebral artery obstruction, stroke, and CAD s/p CABG 4 who was brought to the ED at [facility] on but his for suicidal ideation. Pt reportedly made several comments that he wanted to shoot himself and then last night his found him with a handgun to his chin threatening to shoot himself. She was able to take the gun away from him and called emergency services. Pt has reportedly had multiple episodes of this kind of behavior for the last several months. Pt is unable to recall this episode and just states that he has been having issues with his memory and can't remember things and that's why his wanted him admitted to the hospital. He was admitted to the psychiatric unit under Fernandez Act. [facility] Hospitalist team was consulted for medical management. He currently denies any medical complaints at this time. Denies any chest pain, SOB, palpitations, dizziness, N/V/D/C, abdominal pain, reflux, dysphagia, or dysuria. He reports chronic back pain but states that this is not bothering him currently. Review of Systems Constitutional: DENIES: Fever, Chills Eyes: DENIES: Vision loss Ears, nose, mouth, throat: DENIES: Hearing loss Cardiovascular: DENIES: Chest pain, Lower Extremity Edema Gastrointestinal: DENIES: Abdominal pain, Constipation, Diarrhea, Nausea, Vomiting Genitourinary: DENIES: Urgency, Hematuria Integumentary: DENIES: Rash Neurologic: DENIES: Headache, Localized weakness, Paresthesias Psychiatric: COMPLAINS OF: Confusion, Suicidal Ideation, DENIES: Hallucinations Past Family Social History Past Medical History Dementia Lumbar stenosis with neurogenic claudication Degenerative cervical spinal stenosis Vertebral artery obstruction Hx of stroke CAD s/p CABG 4 HTN Past Surgical History CABG x 4 Inguinal hernia Cholecystectomy Reported Medications Wellbutrin Xl 24 HR (Bupropion HCl) 150 Mg Tab 150 Mg PO DAILY Hydrochlorothiazide 25 Mg Tab 25 Mg PO DAILY Galantamine ER (Galantamine Hydrobromide) 8 Mg Caper 8 Mg PO DAILY Losartan (Losartan Potassium) 100 Mg Tab 100 Mg PO DAILY Lortab (Hydrocodone-Acetaminophen) 10-325 Mg Tab 1 Tab PO Q6H PRN Mobic (Meloxicam) 15 Mg Tab 15 Mg PO DAILY PRN Cymbalta DR (Duloxetine HCl) 60 Mg Capdr 60 Mg PO DAILY Amlodipine (Amlodipine Besylate) 5 Mg Tab 5 Mg PO DAILY Xanax (Alprazolam) 0.5 Mg Tab 0.5 Mg PO DAILY PRN Allergies: Coded Allergies: No Known Allergies (Unverified , 01/27/17) Family History Noncontributory Social History No reported current alcohol, tobacco or illicit drug use Physical Exam Vital Signs Vital Signs Date Time Temp Pulse Resp B/P (MAP) Pulse Ox O2 Delivery O2 Flow Rate FiO2 01/28/17 06:46 97.8 68 16 121/60 (80) 92 01/27/17 22:40 97.4 72 18 158/83 (108) 95 01/27/17 22:36 01/27/17 16:38 76 17 01/27/17 16:38 17 01/27/17 13:39 97.9 80 18 159/104 (122) 97 Room Air Physical Exam GENERAL: This is a well-nourished, well-developed patient, in no apparent distress. HEENT: Atraumatic. Normocephalic. No temporal or scalp tenderness. No scleral icterus. Airway patent. NECK: Trachea midline, supple, nontender. CARDIO: Regular. RESP: CTA bilaterally. No wheezes, rales, or rhonchi. ABD: +BS, soft, non-tender, nondistended. EXT: Extremities without clubbing, cyanosis, or edema. NEURO: Awake and alert. Motor and sensory grossly within normal limits. Normal speech. Laboratory Laboratory Tests Test 01/27/17 17:20 01/27/17 18:15 01/28/17 09:34 White Blood Count 10.4 Red Blood Count 5.05 Hemoglobin 15.8 Hematocrit 45.6 Mean Corpuscular Volume 90.3 Mean Corpuscular Hemoglobin 31.3 Mean Corpuscular Hemoglobin Concent 34.7 Red Cell Distribution Width 13.1 Platelet Count 286 Mean Platelet Volume 7.9 Neutrophils (%) (Auto) 56.2 Lymphocytes (%) (Auto) 28.1 Monocytes (%) (Auto) 8.0 Eosinophils (%) (Auto) 6.6 Basophils (%) (Auto) 1.1 Neutrophils # (Auto) 5.8 Lymphocytes # (Auto) 2.9 Monocytes # (Auto) 0.8 Eosinophils # (Auto) 0.7 Basophils # (Auto) 0.1 CBC Comment DIFF FINAL Differential Comment Blood Urea Nitrogen 20 17 Creatinine 1.21 0.97 Random Glucose 112 90 Total Protein 7.8 Albumin 3.9 Calcium Level 9.1 9.2 Alkaline Phosphatase 89 Aspartate Amino Transf (AST/SGOT) 28 Alanine Aminotransferase (ALT/SGPT) 36 Total Bilirubin 1.1 Sodium Level 137 140 Potassium Level 3.3 3.3 Chloride Level 103 105 Carbon Dioxide Level 27.2 26.7 Anion Gap 7 8 Estimat Glomerular Filtration Rate 58 75 Urine Color YELLOW Urine Turbidity CLEAR Urine pH 6.0 Urine Specific [place] 1.017 Urine Protein NEG Urine Glucose (UA) NEG Urine Ketones NEG Urine Occult Blood NEG Urine Nitrite NEG Urine Bilirubin NEG Urine Urobilinogen 8.0 Urine Leukocyte Esterase NEG Urine WBC 1 Urine Mucus FEW Microscopic Urinalysis Comment CULT NOT INDICATED Triglycerides Level 161 Cholesterol Level 187 LDL Cholesterol 126 HDL Cholesterol 28.5 Cholesterol/HDL Ratio 6.56 Free Thyroxine 1.19 Thyroid Stimulating Hormone 3rd Gen 0.942 Result Diagram: 01/27/17 1720 01/28/17 0934 Assessment and Plan Problem List: (1) Suicidal ideation ICD Codes: R45.851 - Suicidal ideations Status: Acute Plan: - Pt is a 76 y/o male with dementia, lumbar stenosis with neurogenic claudication, degenerative cervical spinal stenosis, vertebral artery obstruction, hx of stroke, and CAD s/p CABG 4 who was brought to the ED at [facility] on 01/27/17 but his for suicidal ideation. - Pt reportedly made several comments that he wanted to shoot himself and then last night his found him with a handgun to his chin threatening to shoot himself. She was able to take the gun away from him and called emergency services. - Pt has reportedly had multiple episodes of this kind of behavior for the last several months but is unable to recall this - Pt has had worsening issues with memory loss/dementia. - He was admitted to the psychiatric unit under Fernandez Act. - Management per Psychiatry (2) Dementia ICD Codes: F03.90 - Unspecified dementia without behavioral disturbance Status: Chronic Plan: - See above - management per psychiatry (3) HTN (hypertension) ICD Codes: I10 - Essential (primary) hypertension Status: Chronic Plan: - Home meds resumed - BP currently stable - Monitor (4) Hyperlipidemia ICD Codes: E78.5 - Hyperlipidemia, unspecified Status: Chronic Plan: - Home meds continued (5) Hx of coronary artery disease ICD Codes: Z86.79 - Personal history of other diseases of the circulatory system Status: Chronic Plan: - Hx of CABg x 4 - Stable currently on home meds (6) Lumbar degenerative disc disease ICD Codes: M51.36 - Lumbar degenerative disc disease Status: Chronic Assessment and Plan Patient examined. Assessment and plan formulated with Lyubov English PA-C. I agree with the above. Problem Qualifiers (1) HTN (hypertension): Qualified Codes: I10 - Essential (primary) hypertension (2) Hyperlipidemia: Qualified Codes: E78.00 - Pure hypercholesterolemia, unspecified Lyubov English Jan 28, 2017 13:56 Tommy Payton MD Jan 28, 2017 15:46
[2017-01-28] MEDS ORDERED: ACETAMINOPHEN/HYDROcodone 325 MG/5 MG TAB PO PRN (14:15)
--- NOTE | 2017-01-28 15:05 | MH ---
cc: BLANE HOOK M.D. DATE OF ADMISSION: 01/27/2017 PRESENTING CHIEF COMPLAINT AND HISTORY OF PRESENT ILLNESS This 76-year-old white male was brought to the emergency room of this hospital voluntarily where the Fernandez Act was initiated by Dr. Rich. In the emergency room he was evaluated by psychiatric screener and it was learned that he has been increasingly getting depressed, irritable and entertaining suicidal thoughts. He reportedly was observed with a gun in his hand by his which later on was removed. He is currently being followed by Dr. Anthony Ignacio a psychiatrist at [facility]. It was also reported that according to the he has been "hallucinating". In addition he also has been increasingly getting forgetful. During this evaluation, the patient did not confirm or deny the suicidal ideations. He was totally opposed to staying in the hospital. The case was discussed with me and it was felt he needed to be hospitalized for further assessment and treatment. Prior to the evaluation the case was discussed with Gigi Marrero, Third Year Medical Student, [employer] [facility] who had earlier seen the patient. According to the staff, since admission he has been very focused on discharge, though he has not exhibited any aggressive or self-destructive behavior, nor has he made any threats of harm to self or others. Present during this evaluation was Gigi Marrero, Third Year Medical Student. At the time of this evaluation Mr. Leary was pleasant and cooperative, though very focused on discharge. When asked about his understanding of the reason for this hospitalization he was somewhat vague "I've been getting increasingly irritable and need something to calm my nerves. [place] . She said that I needed to go to the hospital to get something to calm my nerves and settle me down. I don't like this place. My mom and dad in the hospital, I don't like hospitals, I need to go home". When further explored he acknowledged that over the past year he has been increasingly feeling "depressed and irritable". He has been having difficulty falling asleep and his appetite had declined in the recent two months. In addition he acknowledged that his memory and concentration also had declined. He acknowledged entertaining suicidal thoughts off and on and indicated that about 2 months ago he overdosed and informed his of this. He was seen by his primary care physician, Dr. Augustine Henderson and was put on some medication, the name of which he could not recall. He was also referred to Dr. Anthony Ignacio who he saw only once prior to this admission. He could not tell as to what medication he was started on by Dr. Ignacio. When asked as to how he felt about his previous suicide attempts, he responded "certainly was not good, I should not have done it". Again, when attempted to explore the current circumstances leading to the recent suicidal thoughts he was quite vague "I don't know why, I guess I must have been pissed off". He stated that the guns have been removed from his home. He went on to state that he did not intend to harm himself and did not have any bullets in the gun. When further attempted to explore history suggestive of bipolar affective disorder, he was somewhat vague. He did acknowledge experiencing periods where he would feel "real happy and energetic, not wanting to sleep". He denied experiencing any hypersexuality, delusions of grandeur, spending sprees, etc. As best I could determine he has never been treated for bipolar affective disorder. Further exploration revealed that he has been easily angered whenever he is unable to accomplish or perform well in task that he was accustomed to doing very well at. When asked to elaborate he stated that if he is working on a car and he is not able to do a good job, he would get angry and start yelling. PAST PSYCHIATRIC HISTORY As mentioned above. He is currently under care of Dr. Ignacio for past 2-3 weeks. Prior to this he has not had any psychiatric intervention. PAST MEDICAL HISTORY He has history of myocardial infarction and is status post coronary artery bypass graft. In addition, he also has hyperlipidemia. He had inguinal hernia repair, cholecystectomy and coronary artery bypass graft, hypertension. He denied any drug allergies. MEDICATIONS Current medications are: 1. Wellbutrin 150 mg p.o. daily. 2. Hydrochlorothiazide 25 mg daily. 3. Dilantin 8 mg daily. 4. Losartan 100 mg daily. 5. Lortab 10/325 q.6 hours p.r.n. 6. Mobic 15 mg daily. 7. Cymbalta 60 mg daily. 8. Amlodipine 5 mg p.o. daily. 9. Xanax 0.5 mg p.o. daily p.r.n. FAMILY HISTORY His parents are . He is the youngest of 15 siblings. He denied any family history of psychiatric illness or substance abuse. PERSONAL AND SOCIAL HISTORY He could not give the name of the town he grew up in. 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 He has been to his for the past 57 years and they have two daughters and a son. He denied any problems in his marriage. His works at [employer] in the [employer] department. He has history of alcohol abuse but has been sober for 18 years. He denied any history of illicit drug abuse. He denied any history of involvement with the law but believed that he was charged with DUI once. CLINICAL OBSERVATION AND MENTAL STATUS EXAMINATION At the time of this evaluation Mr. Leary presented as a casually dressed, reasonably well-groomed bearded white male who looked his stated age. He was overall pleasant and cooperative with this interviewer and volunteered information spontaneously, though he was quite vague at times. No overt anger or hostility was noticed. However, he seemed very focused on discharge, minimizing the circumstances leading to this hospitalization. No bizarre behavior or mannerisms were noticed. His speech was coherent and appropriate. His affect was blunted with underlying anger. Subjectively, he described his mood as "I've been feeling down, irritable". Thought processes did not reveal any looseness of association or flight of ideas. No edison delusions, auditory or visual hallucinations were noticed or reported. He denied active suicidal or homicidal ideations or intent at this time and repeatedly stated that he had the gun in his hand but had no bullets in it. As mentioned he had recently overdosed on multiple medications. Cognitive functions: He was alert, oriented to time, place, person and situation. It should be mentioned that he initially gave the month as December but then was able to correct himself. Memory: Immediate, he could do 5 digits forward and 3 digits backward. Recent, he could recall 2/3 objects after 10 minutes with assistance. Remote, he could name Presidents up to President Trump only. His attention and concentration was impaired. He could do serial sevens up to 93 with difficulty. His fund of knowledge was adequate, for example, he knew the capital [facility] as "[place]" and [facility] as "[place]". His judgment and insight was felt to be fair. REVIEW OF SYSTEMS He denied any significant somatic complaints. Specifically denied any diarrhea, vomiting or abdominal pain. During his evaluation in the emergency room he did not present with any significant medical issues either and was considered medically cleared. PHYSICAL EXAMINATION The physical examination done in the emergency room is unremarkable. No gross neurological deficits noticed at this time. DIAGNOSTIC IMPRESSION [place] I: Major depressive disorder, moderate, single episode. Dementia. [place] II: No diagnosis. [place] III: Hypertension, hyperlipidemia, coronary artery disease, status post coronary artery bypass graft. [place] IV: Severity of psychosocial stressors, moderate, i.e. cognitive decline, medical issues. [place] V: Current GAF score 40. FORMULATION AND TREATMENT PLAN Based on this evaluation and the background information available to me at this time, Mr. Leary is exhibiting moderate degree of depression as manifested by persistent feeling of sadness, neurovegetative symptoms. In addition he is also exhibiting significant cognitive deficits and as such basic dementia workup will be ordered. A CT scan of the head done on 11/04/2016 shows atrophy and marked vascular calcification including intracranial vessels. He will be continued on Cymbalta to alleviate his depression. It is not clear as to why he is on Wellbutrin. More collateral information will be gathered and the drug regimen will be modified as warranted. In the meantime, he will be started on small dose of Ativan to reduce his anxiety/irritability. Simultaneously, he will be involved in individual psychotherapy primarily supportive and educative in nature. He will participate in various other unit activities, i.e., occupational therapy, recreational therapy, group therapy. He will be encouraged to minimize the use of opiates. It is not clear as to why he is taking this at this point except the reported back pain which he himself did not share during this evaluation. He is totally opposed to continued hospital stay despite best efforts to educate him about it. We will discuss this with him again tomorrow and should he not agree to voluntary admission, then involuntary admission will be initiated. Medical consult will be requested for assistance in the management of his medical issues. IDENTIFIED ISSUES 1. Depression. 2. Cognitive deficits. 3. Current psychosocial stressors. ASSETS 1. He is verbal. 2. Supportive family. 3. Ability to access healthcare. ESTIMATED LENGTH OF STAY 5-7 days. MD ELINOR Benavidez/MIGUEL /1:44 PM /2:09 PM
[2017-01-28 18:12] VITALS: BP 153/84; PULSE 83; RESP 18; TEMP 98.2; O2SAT 96
[2017-01-28] MEDS: LORazepam 1 MG TAB PO PRN (21:06)
[2017-01-28 21:16] LABS: HEMOGLOBIN A1a 0.7 %; HEMOGLOBIN A1b 0.9 %; HEMOGLOBIN Ao 86.6 %; HEMOGLOBIN F 0.8 %; HEMOGLOBIN LA1C 1.9 %; HEMOGLOBIN P3 3.6 %
[2017-01-29] MEDS: LORazepam 1 MG TAB PO PRN (05:01)
[2017-01-29 07:00] VITALS: BP 143/87; PULSE 87; RESP 17; TEMP 97.9; O2SAT 96
[2017-01-29] MEDS: buPROPion HCL 150 MG SUSTAINED RELEASE TAB PO SCH (10:04)
[2017-01-29] MEDS: HYDROCHLOROTHIAZIDE 25 MG TAB PO SCH (10:04)
[2017-01-29] MEDS: GALANTAMINE HYDROBROMIDE 4 MG TAB PO SCH ×2 (10:04→21:47)
[2017-01-29] MEDS: LOSARTAN 50 MG TAB PO SCH (10:04)
[2017-01-29] MEDS: DULoxetine HCl DR 60 MG CAP PO SCH (10:04)
[2017-01-29] MEDS: amLODIPine BESYLATE 5 MG TAB PO SCH (10:05)
[2017-01-29 13:57] LABS: ANA SCREEN POS (NEG)
[2017-01-29 20:21] VITALS: PULSE 96; RESP 18; TEMP 97; O2SAT 98
[2017-01-29 20:27] VITALS: BP 158/84
[2017-01-30 06:44] VITALS: BP 150/84; PULSE 78; RESP 15; TEMP 98.6; O2SAT 95
[2017-01-30] MEDS: amLODIPine BESYLATE 5 MG TAB PO SCH (10:45)
[2017-01-30] MEDS: buPROPion HCL 150 MG SUSTAINED RELEASE TAB PO SCH (10:45)
[2017-01-30] MEDS: HYDROCHLOROTHIAZIDE 25 MG TAB PO SCH (10:45)
[2017-01-30] MEDS: DULoxetine HCl DR 60 MG CAP PO SCH (10:46)
[2017-01-30] MEDS: LOSARTAN 50 MG TAB PO SCH (10:46)
[2017-01-30] MEDS: GALANTAMINE HYDROBROMIDE 4 MG TAB PO SCH ×2 (10:46→21:03)
[2017-01-30 16:00] VITALS: BP 158/86; PULSE 93; RESP 18; TEMP 97.7; O2SAT 94
[2017-01-30] MEDS: LORazepam 1 MG TAB PO PRN (21:03)
[2017-01-31 06:00] VITALS: BP 119/63; PULSE 76; RESP 18; TEMP 97.5; O2SAT 94
[2017-01-31] MEDS: GALANTAMINE HYDROBROMIDE 4 MG TAB PO SCH ×2 (09:53→21:09)
[2017-01-31] MEDS: amLODIPine BESYLATE 5 MG TAB PO SCH (09:53)
[2017-01-31] MEDS: CHOLECALCIFEROL (VIT D3) 1000 UNIT TAB PO SCH (09:54)
[2017-01-31] MEDS: buPROPion HCL 75 MG TAB PO SCH (09:54)
[2017-01-31] MEDS: HYDROCHLOROTHIAZIDE 25 MG TAB PO SCH (09:54)
[2017-01-31] MEDS: DULoxetine HCl DR 60 MG CAP PO SCH (09:54)
[2017-01-31] MEDS: LOSARTAN 50 MG TAB PO SCH (09:54)
[2017-01-31] MEDS: ESCITALOPRAM OXALATE 10 MG TAB PO SCH (09:54)
[2017-01-31 17:30] VITALS: BP 149/88; PULSE 81; RESP 18; TEMP 97.6
[2017-01-31] MEDS ORDERED: LORazepam 1 MG TAB PO PRN (22:15)
[2017-02-01 06:00] VITALS: BP 158/87; PULSE 79; RESP 16; TEMP 97.4; O2SAT 94
[2017-02-01] MEDS: DULoxetine HCl DR 60 MG CAP PO SCH (09:04)
[2017-02-01] MEDS: GALANTAMINE HYDROBROMIDE 4 MG TAB PO SCH ×2 (09:04→22:30)
[2017-02-01] MEDS: amLODIPine BESYLATE 5 MG TAB PO SCH (09:04)
[2017-02-01] MEDS: HYDROCHLOROTHIAZIDE 25 MG TAB PO SCH (09:04)
[2017-02-01] MEDS: ESCITALOPRAM OXALATE 10 MG TAB PO SCH (09:04)
[2017-02-01] MEDS: LOSARTAN 50 MG TAB PO SCH (09:04)
[2017-02-01] MEDS: buPROPion HCL 75 MG TAB PO SCH (09:05)
[2017-02-01] MEDS: CHOLECALCIFEROL (VIT D3) 1000 UNIT TAB PO SCH (09:05)
[2017-02-01 18:34] VITALS: BP 139/69; PULSE 83; RESP 18; TEMP 98.2; O2SAT 98
[2017-02-02 06:43] VITALS: BP 147/86; PULSE 76; RESP 17; TEMP 98; O2SAT 94
[2017-02-02] MEDS: GALANTAMINE HYDROBROMIDE 4 MG TAB PO SCH ×2 (09:50→20:43)
[2017-02-02] MEDS: amLODIPine BESYLATE 5 MG TAB PO SCH (09:50)
[2017-02-02] MEDS: buPROPion HCL 75 MG TAB PO SCH (09:51)
[2017-02-02] MEDS: DULoxetine HCl DR 60 MG CAP PO SCH (09:51)
[2017-02-02] MEDS: ESCITALOPRAM OXALATE 10 MG TAB PO SCH (09:51)
[2017-02-02] MEDS: CHOLECALCIFEROL (VIT D3) 1000 UNIT TAB PO SCH (09:52)
[2017-02-02] MEDS: HYDROCHLOROTHIAZIDE 25 MG TAB PO SCH (09:52)
[2017-02-02] MEDS: LOSARTAN 50 MG TAB PO SCH (09:53)
[2017-02-02 18:00] VITALS: BP 146/76; PULSE 71; RESP 18; TEMP 97.7; O2SAT 93
[2017-02-03 06:37] VITALS: BP 137/78; PULSE 76; RESP 17; TEMP 98.4; O2SAT 96
[2017-02-03] MEDS: ESCITALOPRAM OXALATE 10 MG TAB PO SCH (09:53)
[2017-02-03] MEDS: DULoxetine HCl DR 60 MG CAP PO SCH (09:53)
[2017-02-03] MEDS: CHOLECALCIFEROL (VIT D3) 1000 UNIT TAB PO SCH (09:54)
[2017-02-03] MEDS: GALANTAMINE HYDROBROMIDE 4 MG TAB PO SCH (09:54)
[2017-02-03] MEDS: HYDROCHLOROTHIAZIDE 25 MG TAB PO SCH (09:54)
[2017-02-03] MEDS: amLODIPine BESYLATE 5 MG TAB PO SCH (09:54)
[2017-02-03] MEDS: LOSARTAN 50 MG TAB PO SCH (09:55)
--- NOTE | 2017-02-03 14:11 | PD.TTN ---
Patient Problems 1. Discharge planning 2. Medication compliance 3. Knowledge deficit 4. Lack of coping skills Progress Toward Goals Provider Present: Dr. Ruth Armstrong Provider Input: addressed safety with patient and son in treatment team also addressed suicidal ideation doctor feels he is less depressed and is eating more and sleeping better family wants him home Nurse(s) Input: Brandi: can get angry easily he wants to go home as soon as possible Psychiatric Counselors Present: Prudence Lozano LCSW Psych Therapist Input: overall compliant and no issues but requesting to go home, increased confusion yesterday overall pleasant and cooperative with counselor and walking hallways and coming out for meals Group Spec/RT/OT/WADSWORTH Present: ERMELINDA Lorenzo Group Spec/RT/OT/WADSWORTH Input: often seen isolating in room does not come to groups and is discharged focused Prudence Lozano LCSW Feb 03, 2017 14:11
[2017-02-03] MEDS ORDERED: ESCI10TA PO (14:18)
[2017-02-03] MEDS ORDERED: DULO1CAP3 PO (14:18)
[2017-02-03] MEDS ORDERED: AMLO5 PO (14:18)
[2017-02-03] MEDS ORDERED: HYDR25TA5 PO (14:18)
[2017-02-03] MEDS ORDERED: MELO-1 PO (14:18)
[2017-02-03] MEDS ORDERED: GALA4TAB PO (14:18)
[2017-02-03] MEDS ORDERED: VITA1000 PO (14:18)
[2017-02-03] MEDS ORDERED: HYDR-3516 PO (14:18)
[2017-02-03] MEDS ORDERED: COZA50TA PO (14:18)
--- NOTE | 2017-02-03 14:31 | PD.TTN ---
Patient Problems 1. Discharge planning 2. Medication compliance 3. Knowledge deficit 4. Lack of coping skills Progress Toward Goals Provider Present: Dr. Ruth Armstrong Provider Input: addressed safety with patient and son in treatment team also addressed suicidal ideation doctor feels he is less depressed and is eating more and sleeping better family wants him home Nurse(s) Input: Brandi: can get angry easily he wants to go home as soon as possible Psychiatric Counselors Present: Prudence Lozano LCSW Psych Therapist Input: overall compliant and no issues but requesting to go home, increased confusion yesterday overall pleasant and cooperative with counselor and walking hallways and coming out for meals Group Spec/RT/OT/WADSWORTH Present: ERMELINDA Lorenzo Group Spec/RT/OT/WADSWORTH Input: often seen isolating in room does not come to groups and is discharged focused Patient/Family Input: Son Lior came to treatment team and shared his father, the patient is much better and less depressed. He has removed weapons from the home and will be staying home with the patient to be assisting and being with him / upon leaving. Patient is very excited to go home and looks less depressed. Family will pick patient up by 4pm. Prudence Lozano LCSW Feb 03, 2017 14:31
--- NOTE | 2017-02-04 08:14 | MD ---
cc: BLANE HOOK M.D. ADMISSION DATE: 01/27/2017 DISCHARGE DATE: 02/03/2017 ADMISSION DIAGNOSES [place] I: Major depressive disorder, moderate, single episode. Dementia. [place] II: No diagnosis. [place] III: Hypertension, hyperlipidemia, coronary artery disease, status post coronary artery bypass graft. [place] IV: Severity of psychosocial stressors, moderate, i.e. cognitive decline, medical issues. [place] V: Current GAF score 40. DISCHARGE DIAGNOSIS [place] I: Major depressive disorder, moderate, single episode. Dementia. [place] II: No diagnosis. [place] III: Hypertension, hyperlipidemia, coronary artery disease, status post coronary artery bypass graft, vitamin D deficiency. [place] IV: Severity of psychosocial stressors, moderate, i.e. cognitive decline, medical issues. [place] V: Current GAF score 60. BRIEF HISTORY This 76-year-old white male was brought to the emergency room of this hospital voluntarily where the Fernandez Act was initiated by Dr. Rich. In the emergency room he was also evaluated by the psychiatric screener and it was learned that he has been increasingly getting depressed, irritable, entertaining suicidal thoughts. He reportedly was observed with a gun in his hand by his which was later on removed. Please refer to my initial evaluation for details. LAB WORKUP CBC with differential unremarkable. Sed rate 22. CMP showed serum potassium 3.3 on 01/28. Vitamin B12 level normal. Vitamin D level 11.0, low. T4, TSH normal. Serum folate level normal. 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 JEF pattern diffuse. RPR nonreactive. CT scan of the brain done prior to admission on 11/04/2016 showed marked central and cortical atrophy and marked vascular calcification including intracranial vessels. HOSPITAL COURSE When initially evaluated Mr. Leary was pleasant and cooperative though very focused on discharge. He acknowledged being increasingly getting depressed and anxious. In addition he also acknowledged gradual decline in his memory. He acknowledged entertaining suicidal thoughts off and on and indicated about 2 months prior to this admission he had overdosed and informed his of this. He was evaluated by his primary care physician Dr. Augustine Henderson and was put on some medication, the name of which he could not recall. He denied any serious intention to harm himself and indicated that he did not intend to harm himself as he did not have the bullets in the gun. A basic dementia workup was ordered which was essentially unremarkable. His JEF was positive and the titer 1:80. He was recommended follow up with his primary care physician. To alleviate his depression, Wellbutrin was discontinued and he was switched over to Lexapro. Gradually his depression began to lift. Initially he was quite self isolative but as his depression began to lift he began to interact with staff and peers. He was frequently observed sitting in the day room talking to the staff and watching TV. His sleep and appetite also improved. He denied entertaining any suicidal thoughts and actually on occasions expressed remorse at his behavior leading to this hospitalization. I had telephone conversation with his to review the patient's condition, diagnosis, treatment approach and discharge plans. She also seemed quite pleased with the steady progress he was making and preferred return home instead of assisted-living facility. His son attended the treatment team meeting today and seemed very pleased with the progress he has made "it's night and day, he looks so much better happy". He also supported the patient's request for discharge today. Throughout this hospital stay he did not exhibit any aggressive or self-destructive behavior, nor did he make any threats of harm to self or others. He did exhibit sundowning. So at the time of discharge he is denying any suicidal or homicidal ideations. He is not exhibiting any acute psychotic symptoms. During this hospital stay he was also seen in consultation by Dr. Payton/Dr. Escamilla. He is considered medically cleared for discharge. MEDICATIONS Discharge medications are as follows: 1. Amlodipine 5 mg p.o. daily, 14 day supply. 2. Vitamin D 1000 units daily, 14 day supply. 3. Cymbalta 60 mg p.o. daily, 14 day supply with one refill. 4. Lexapro 10 mg p.o. daily, 14 day supply with one refill. 5. Galantamine 4 mg p.o. b.i.d., 14 day supply. 6. Hydrochlorothiazide 25 mg daily, 14 day supply. 7. Hydrocodone/Acetaminophen 5/325 one tablet p.o. b.i.d. p.r.n. for pain greater than 5, #14. 8. Cozaar 100 mg p.o. daily, 14 day supply, 28 tablets. 9. Meloxicam 15 mg p.o. daily p.r.n. arthritic pain, 14 day supply. He is to continue individual psychotherapy at [facility] and psychiatric followup with Dr. Ignacio. He is also recommended to follow up with his primary care physician regarding the positive JEF and other medical issues. MD ELINOR Benavidez/MIGUEL /2:22 PM /8:11 AM
== END 2017-02-03 16:05 | disposition home or self-care (01) | DRG 885 ==
LOC: NEPD 13:37 → NEDA 21:15 → H250 22:42
PROVIDERS: ADMIT Psychiatry & Neurology Psychiatry; ATTEND Psychiatry & Neurology Psychiatry
DX: F32.1 Major depressive disorder, single episode, moderate (principal); F05 Delirium due to known physiological condition; R45.851 Suicidal ideations; F03.90 Unspecified dementia, unspecified severity, without behavioral disturbance, psychotic disturbance, mood disturbance, and anxiety; I25.2 Old myocardial infarction; G89.29 Other chronic pain; M54.9 Dorsalgia, unspecified; E87.6 Hypokalemia; M48.062 Spinal stenosis, lumbar region with neurogenic claudication; M48.02 Spinal stenosis, cervical region; I25.10 Atherosclerotic heart disease of native coronary artery without angina pectoris; I10 Essential (primary) hypertension; E78.5 Hyperlipidemia, unspecified; M51.36 Other intervertebral disc degeneration, lumbar region; E55.9 Vitamin D deficiency, unspecified; Z86.73 Personal history of transient ischemic attack (TIA), and cerebral infarction without residual deficits; Z87.891 Personal history of nicotine dependence; Z91.5 Personal history of self-harm; Z95.1 Presence of aortocoronary bypass graft
CPT/HCPCS: 80048; 80053; 80061; 81001; 82306; 82607; 82746; 83036; 84439; 84443; 85025; 85652; 86038; 86039; 86592

== ENCOUNTER 2017-04-15 08:29 | Emergency (ER) | payer MEDICARE ==
[~2017-04-15] VITALS: Ht 185.4 cm; Wt 112.0 kg
[~2017-04-15 08:29] MED LIST changes: +AMLO5 PO; +COZA50TA PO; +DULO1CAP3 PO; +ESCI10TA PO; +GALA4TAB PO; +HYDR-3516 PO; +MELO15TA20 PO; +VITA1000 PO; -ZOLP10TA3 PO
[2017-04-15 08:30] VITALS: BP 213/141; PULSE 97; RESP 18; TEMP 98.2; O2SAT 97
--- NOTE | 2017-04-15 08:50 | PD ---
HPI Chief Complaint: Altered Mental Status Time Seen by Provider: 08:46 Travel History International Travel<30 days: No Contact w/Intl Traveler<30days: No Traveled to known affect area: No History of Present Illness HPI 76-year-old male patient presents to the ER today brought in by son, apparently has some history dementia, has been having arguments with his recently, and now states that he doesn't care anymore, has stated that he wants to harm himself. He denies any ingestion or any recent intentional injury to himself however. Modifying Factors: None Associated Signs & Symptoms: Suicidal ideation, depression after recent argument with Risk Factors: History of dementia PFSH Past Medical History Hx Anticoagulant Therapy: Yes Bipolar Disorder: Yes Anxiety: Yes Depression: Yes Cancer: No Cardiovascular Problems: No High Cholesterol: Yes Chest Pain: Yes Cerebrovascular Accident: Yes Dementia: Yes Diabetes: No Diminished Hearing: No Headaches: No Inguinal Hernia: Yes (surgical repair) Psychiatric: Yes (Depression ) Seizures: No Triglycerides - High: Yes Past Surgical History Abdominal Surgery: Yes (hernia) Cholecystectomy: Yes Coronary Artery Bypass Graft: Yes Social History Alcohol Use: No (hx) Tobacco Use: No Substance Use: No Allergies-Medications (Allergen,Severity, Reaction): Coded Allergies: No Known Allergies (Unverified Adverse Reaction, Unknown, 04/15/17) Reported Meds & Prescriptions Reported Meds & Active Scripts Active D 1000 (Cholecalciferol) 1,000 Unit Tab 1,000 Units PO DAILY 14 Days Hydrochlorothiazide 25 Mg Tab 25 Mg PO DAILY 14 Days Escitalopram (Escitalopram Oxalate) 10 Mg Tab 10 Mg PO DAILY [address] (Duloxetine HCl) 60 Mg Capdr 60 Mg PO DAILY 14 Days Hydrocodone-Acetaminophen 5-325 mg Tab 1 Tab PO BID PRN Meloxicam 15 Mg Tab 15 Mg PO DAILY PRN 14 Days Cozaar (Losartan Potassium) 50 Mg Tab 100 Mg PO DAILY 14 Days Norvasc (Amlodipine Besylate) 5 Mg Tab 5 Mg PO DAILY 14 Days Galantamine (Galantamine Hydrobromide) 4 Mg Tab 4 Mg PO BID 14 Days Reported Wellbutrin Xl 24 HR (Bupropion HCl) 150 Mg Tab 150 Mg PO DAILY Hydrochlorothiazide 25 Mg Tab 25 Mg PO DAILY Galantamine ER (Galantamine Hydrobromide) 8 Mg Caper 8 Mg PO DAILY Losartan (Losartan Potassium) 100 Mg Tab 100 Mg PO DAILY Mobic (Meloxicam) 15 Mg Tab 15 Mg PO DAILY PRN Cymbalta DR (Duloxetine HCl) 60 Mg Capdr 60 Mg PO DAILY Amlodipine (Amlodipine Besylate) 5 Mg Tab 5 Mg PO DAILY Xanax (Alprazolam) 0.5 Mg Tab 0.5 Mg PO DAILY PRN Review of Systems Except as stated in HPI: all other systems reviewed are Neg Physical Exam Narrative GENERAL: Well-developed elderly white male patient currently in mild distress, mildly agitated. Awake and oriented 3. SKIN: Focused skin assessment warm/dry. HEAD: Atraumatic. Normocephalic. EYES: Pupils equal and round. No scleral icterus. No injection or drainage. ENT: No nasal bleeding or discharge. Mucous membranes pink and moist. NECK: Trachea midline. No JVD. Supple. CARDIOVASCULAR: Regular rate and rhythm. No murmur appreciated. RESPIRATORY: No accessory muscle use. Clear to auscultation. Breath sounds equal bilaterally. GASTROINTESTINAL: Abdomen soft, non-tender, nondistended. Hepatic and splenic margins not palpable. MUSCULOSKELETAL: No obvious deformities. No clubbing. No cyanosis. No edema. NEUROLOGICAL: Awake and alert. No obvious cranial nerve deficits. Motor grossly within normal limits. Normal speech. PSYCHIATRIC: Mildly agitated mood and affect; insight and judgment poor. Data Data Last Documented VS Vital Signs Date Time Temp Pulse Resp B/P (MAP) Pulse Ox O2 Delivery O2 Flow Rate FiO2 04/15/17 11:19 88 18 142/97 (112) 96 Room Air 04/15/17 08:30 98.2 Orders Orders Complete Blood Count With Diff (04/15/17 08:46) Comprehensive Metabolic Panel (04/15/17 08:46) Thyroid Stimulating Hormone (04/15/17 08:46) Urinalysis - C+S If Indicated (04/15/17 08:46) Psych Screen (04/15/17 08:46) Drug Screen, Random Urine (04/15/17 08:46) Alcohol (Ethanol) (04/15/17 08:46) Haloperidol Inj (Haldol Inj) (04/15/17 09:00) Lorazepam Inj (Ativan Inj) (04/15/17 10:15) Lorazepam Inj (Ativan Inj) (04/15/17 10:30) Amlodipine (Norvasc) (04/15/17 11:15) Labs Laboratory Tests Test 04/15/17 09:00 White Blood Count 14.7 TH/MM3 Red Blood Count 5.42 MIL/MM3 Hemoglobin 16.9 GM/DL Hematocrit 47.9 % Mean Corpuscular Volume 88.4 FL Mean Corpuscular Hemoglobin 31.2 PG Mean Corpuscular Hemoglobin Concent 35.3 % Red Cell Distribution Width 13.6 % Platelet Count 386 TH/MM3 Mean Platelet Volume 7.8 FL Neutrophils (%) (Auto) 64.1 % Lymphocytes (%) (Auto) 22.7 % Monocytes (%) (Auto) 8.9 % Eosinophils (%) (Auto) 2.6 % Basophils (%) (Auto) 1.7 % Neutrophils # (Auto) 9.4 TH/MM3 Lymphocytes # (Auto) 3.3 TH/MM3 Monocytes # (Auto) 1.3 TH/MM3 Eosinophils # (Auto) 0.4 TH/MM3 Basophils # (Auto) 0.2 TH/MM3 CBC Comment AUTO DIFF Differential Total Cells Counted 100 Neutrophils % (Manual) 70 % Lymphocytes % 22 % Monocytes % 4 % Eosinophils % 2 % Basophils % 1 % Neutrophils # (Manual) 10.4 TH/MM3 Myelocytes 1 % Differential Comment FINAL DIFF MANUAL Platelet Estimate NORMAL Platelet Morphology Comment NORMAL Blood Urea Nitrogen 22 MG/DL Creatinine 1.25 MG/DL Random Glucose 120 MG/DL Total Protein 8.4 GM/DL Albumin 4.1 GM/DL Calcium Level 10.2 MG/DL Alkaline Phosphatase 96 U/L Aspartate Amino Transf (AST/SGOT) 28 U/L Alanine Aminotransferase (ALT/SGPT) 33 U/L Total Bilirubin 0.9 MG/DL Sodium Level 137 MEQ/L Potassium Level 3.1 MEQ/L Chloride Level 101 MEQ/L Carbon Dioxide Level 25.7 MEQ/L Anion Gap 10 MEQ/L Estimat Glomerular Filtration Rate 56 ML/MIN Thyroid Stimulating Hormone 3rd Gen 1.300 uIU/ML Ethyl Alcohol Level LESS THAN 3 MG/DL MDM Medical Decision Making Medical Screen Exam Complete: Yes Emergency Medical Condition: Yes Medical Record Reviewed: Yes Interpretation(s) Laboratory Tests Test 04/15/17 09:00 White Blood Count 14.7 TH/MM3 (4.0-11.0) Monocytes (%) (Auto) 8.9 % (0.0-8.0) Neutrophils # (Auto) 9.4 TH/MM3 (1.8-7.7) Monocytes # (Auto) 1.3 TH/MM3 (0-0.9) Neutrophils # (Manual) 10.4 TH/MM3 (1.8-7.7) Myelocytes 1 % (0-0) Blood Urea Nitrogen 22 MG/DL (7-18) Random Glucose 120 MG/DL (74-106) Total Protein 8.4 GM/DL (6.4-8.2) Calcium Level 10.2 MG/DL (8.5-10.1) Potassium Level 3.1 MEQ/L (3.5-5.1) Estimat Glomerular Filtration Rate 56 ML/MIN (>89) Differential Diagnosis BA/suicidal ideation/agitation/medical evaluation for psychiatry Narrative Course Patient was quite agitated in the ER. He was given Haldol and Ativan. Fernandez act was initiated on the patient. His initial blood pressure was fairly elevated but after he was given amlodipine which she also takes, his blood pressure was much improved. At this point, my plan would be to medically clear him for psychiatric evaluation. Diagnosis Primary Impression: Suicidal ideation Additional Impression: HTN (hypertension) Disposition: 65 DISC TO PSYCH CARE FACILITY Condition: Stable Carlito Lynn MD Apr 15, 2017 08:50
[2017-04-15] MEDS ORDERED: HALOPERIDOL LACTATE 5 MG/ML AMP IM ONE (09:00)
[2017-04-15 09:17] LABS: AUTOMATED NEUTROPHIL # 9.4 TH/MM3 (1.8-7.7); BASOPHIL # 0.2 TH/MM3 (0-0.2); BASOPHIL % 1.7 % (0.0-2.0); EOSINOPHIL # 0.4 TH/MM3 (0-0.4); EOSINOPHIL % 2.6 % (0.0-4.0); HEMATOCRIT 47.9 % (39.0-51.0); HEMOGLOBIN 16.9 GM/DL (13.0-17.0); LYMPH % 22.7 % (9.0-44.0); LYMPHOCYTE # 3.3 TH/MM3 (1.0-4.8); MEAN CELL VOLUME 88.4 FL (80.0-100.0); MEAN CORPUSCULAR HEMOGLOBIN 31.2 PG (27.0-34.0); MEAN CORPUSCULAR HGB CONC 35.3 % (32.0-36.0); MEAN PLATELET VOLUME 7.8 FL (7.0-11.0); MONO % 8.9 % (0.0-8.0); MONOCYTE # 1.3 TH/MM3 (0-0.9); NEUT % 64.1 % (16.0-70.0); PLATELET COUNT 386 TH/MM3 (150-450); RED BLOOD COUNT 5.42 MIL/MM3 (4.50-5.90); RED CELL DISTRIBUTION WIDTH 13.6 % (11.6-17.2); WHITE BLOOD COUNT 14.7 TH/MM3 (4.0-11.0)
[2017-04-15 09:40] LABS: ALBUMIN 4.1 GM/DL (3.4-5.0); ALT (GPT) 33 U/L (12-78); AST (GOT) 28 U/L (15-37); BICARBONATE 25.7 MEQ/L (21.0-32.0); CALCIUM 10.2 MG/DL (8.5-10.1); CHLORIDE 101 MEQ/L (98-107); CREATININE 1.25 MG/DL (0.60-1.30); GLOMERULAR FILTRATION RATE 56 ML/MIN (>89); GLUCOSE,RANDOM 120 MG/DL (74-106); SODIUM (NA) 137 MEQ/L (136-145)
[2017-04-15 09:41] LABS: BLOOD UREA NITROGEN 22 MG/DL (7-18); TOTAL BILIRUBIN ADULT 0.9 MG/DL (0.2-1.0); TOTAL PROTEIN 8.4 GM/DL (6.4-8.2)
[2017-04-15 09:49] LABS: ALKALINE PHOSPHATASE 96 U/L (45-117)
[2017-04-15] MEDS ORDERED: LORazepam 2 MG/ML VIAL IV PUSH ONE (10:15)
[2017-04-15 10:24] LABS: BASOPHILS 1 % (0-2); LYMPHOCYTES 22 % (9-44); MONOCYTES 4 % (0-8); MYELOCYTES 1 % (0-0); NEUTROPHIL # MANUAL DIFF 10.4 TH/MM3 (1.8-7.7); POLYS (SEG NEUTROPHILS) 70 % (16-70)
[2017-04-15] MEDS ORDERED: LORazepam 2 MG/ML VIAL IM ONE (10:30)
[2017-04-15] MEDS ORDERED: amLODIPine BESYLATE 5 MG TAB PO ONE (11:15)
[2017-04-15 11:19] VITALS: BP 142/97; PULSE 88; RESP 18; O2SAT 96
[2017-04-15] MEDS ORDERED: POTASSIUM CHLORIDE 20 MEQ CONTROLLED RELEASE TAB PO ONE (13:30)
== END 2017-04-15 13:54 ==
LOC: NEPE 08:29
DX: R45.851 Suicidal ideations (principal); I10 Essential (primary) hypertension; F03.90 Unspecified dementia, unspecified severity, without behavioral disturbance, psychotic disturbance, mood disturbance, and anxiety; Z79.01 Long term (current) use of anticoagulants
CPT/HCPCS: 80053; 80307; 84443; 85007; 85027; 96372; 96374; 99284; J1630; J2060

== ENCOUNTER 2017-04-16 13:28 | Inpatient (IN) | payer MEDICARE ==
[~2017-04-16] VITALS: Ht 185.4 cm; Wt 103.4 kg
[~2017-04-16 13:28] MED LIST changes: -HYDR-3535 PO
[2017-04-16 13:30] VITALS: BP 146/76; PULSE 90; RESP 18; TEMP 97.9; O2SAT 95
--- NOTE | 2017-04-16 14:08 | PD ---
HPI Chief Complaint: Psychiatric Symptoms Time Seen by Provider: 14:07 Travel History International Travel<30 days: No Contact w/Intl Traveler<30days: No Traveled to known affect area: No PFSH Past Medical History Hx Anticoagulant Therapy: Yes Bipolar Disorder: Yes Anxiety: Yes Depression: Yes Cancer: No Cardiovascular Problems: No High Cholesterol: Yes Chest Pain: Yes Cerebrovascular Accident: Yes Dementia: Yes Diabetes: No Diminished Hearing: No Headaches: No Inguinal Hernia: Yes (surgical repair) Psychiatric: Yes (Depression ) Seizures: No Triglycerides - High: Yes Past Surgical History Abdominal Surgery: Yes (hernia) Cholecystectomy: Yes Coronary Artery Bypass Graft: Yes Social History Alcohol Use: No (hx) Tobacco Use: No Substance Use: No Allergies-Medications (Allergen,Severity, Reaction): Coded Allergies: No Known Allergies (Unverified Allergy, Unknown, 04/16/17) Reported Meds & Prescriptions Reported Meds & Active Scripts Active D 1000 (Cholecalciferol) 1,000 Unit Tab 1,000 Units PO DAILY 14 Days Hydrochlorothiazide 25 Mg Tab 25 Mg PO DAILY 14 Days Escitalopram (Escitalopram Oxalate) 10 Mg Tab 10 Mg PO DAILY [address] (Duloxetine HCl) 60 Mg Capdr 60 Mg PO DAILY 14 Days Hydrocodone-Acetaminophen 5-325 mg Tab 1 Tab PO BID PRN Meloxicam 15 Mg Tab 15 Mg PO DAILY PRN 14 Days Cozaar (Losartan Potassium) 50 Mg Tab 100 Mg PO DAILY 14 Days Norvasc (Amlodipine Besylate) 5 Mg Tab 5 Mg PO DAILY 14 Days Galantamine (Galantamine Hydrobromide) 4 Mg Tab 4 Mg PO BID 14 Days Reported Wellbutrin Xl 24 HR (Bupropion HCl) 150 Mg Tab 150 Mg PO DAILY Hydrochlorothiazide 25 Mg Tab 25 Mg PO DAILY Galantamine ER (Galantamine Hydrobromide) 8 Mg Caper 8 Mg PO DAILY Losartan (Losartan Potassium) 100 Mg Tab 100 Mg PO DAILY Mobic (Meloxicam) 15 Mg Tab 15 Mg PO DAILY PRN Cymbalta DR (Duloxetine HCl) 60 Mg Capdr 60 Mg PO DAILY Amlodipine (Amlodipine Besylate) 5 Mg Tab 5 Mg PO DAILY Xanax (Alprazolam) 0.5 Mg Tab 0.5 Mg PO DAILY PRN Data Data Last Documented VS Vital Signs Date Time Temp Pulse Resp B/P (MAP) Pulse Ox O2 Delivery O2 Flow Rate FiO2 1/5/18 13:30 97.9 90 18 146/76 (99) 95 Room Air Orders Orders Urinalysis - C+S If Indicated (04/16/17 13:36) Psych Screen (04/16/17 14:04) Drug Screen, Random Urine (04/16/17 14:04) Diet Regular Basic (04/16/17 Dinner) Admit Order (Ed Use Only) (04/16/17 15:05) Labs Laboratory Tests Test 04/16/17 13:55 Urine Color YELLOW Urine Turbidity HAZY Urine pH 5.5 Urine Specific [place] 1.017 Urine Protein TRACE mg/dL Urine Glucose (UA) NEG mg/dL Urine Ketones NEG mg/dL Urine Occult Blood NEG Urine Nitrite NEG Urine Bilirubin NEG Urine Urobilinogen 4.0 MG/DL Urine Leukocyte Esterase NEG Urine RBC 1 /hpf Urine WBC 2 /hpf Urine Squamous Epithelial Cells <1 /hpf Urine Bacteria RARE /hpf Urine Hyaline Casts 3 /lpf Urine Mucus FEW /lpf Microscopic Urinalysis Comment CULT NOT INDICATED Ximena Dennis Apr 16, 2017 14:08
[2017-04-16 14:12] LABS: BACTERIA, URINE RARE /hpf; BILIRUBIN, URINE NEG (NEG); BLOOD, URINE NEG (NEG); GLUCOSE,URINE NEG (NEG); HYALINE CAST, URINE 3 /lpf (RARE); KETONE, URINE NEG (NEG); MUCUS URINE FEW /lpf (OCC); NITRITE,URINE NEG (NEG); PH, URINE 5.5 (5.0-8.5); SQUAMOUS EPITHELIAL CELL URINE <1 /hpf (0-5); URINE COLOR YELLOW (YELLW/STRAW); URINE LEUKOCYTE ESTERASE NEG (NEG)
[2017-04-16] MEDS ORDERED: MAGNESIUM HYDROXIDE SUSP 30 ML CUP PO PRN (15:15)
[2017-04-16] MEDS ORDERED: LORazepam 2 MG/ML VIAL IM PRN (15:15)
[2017-04-16] MEDS ORDERED: ACETAMINOPHEN 325 MG TAB PO PRN (15:15)
[2017-04-16] MEDS ORDERED: ALUMINUM/MAGNESIUM/SIMETH 30 ML CUP PO PRN (15:15)
--- NOTE | 2017-04-16 15:26 | HHI.HP ---
Provisional Diagnosis Admission Date Bradley I. Dementia with behavioral disturbance. Certification of Person's Competence To Provide Express and Informed Consent I have personally examined Zi Leary , a person being served at [facility] on, Apr 16, 2017 15:12. Express and informed consent means consent voluntarily given in writing, by a competent person, after sufficient explanation and disclosure of the subject matter involved to enable the person to make a knowing and willful decision without any element of force, fraud, deceit, duress, or other form of constraint or coercion. This person is 18 years of age or older, is not now known to be incompetent to consent to treatment with a guardian advocate, and does not have a health care surrogate or proxy currently making medical treatment decisions. I have found this person to be one of the following: [X] Competent to provide express and informed consent, as defined above, for voluntary admission to this facility and is competent to provide express and informed consent for treatment. He/she has the consistent capacity to make well reasoned, willful, and knowing decisions concerning his or her medical or mental health treatment. The person fully and consistently understands the purpose of the admission for examination/placement and is fully capable of personally exercising all rights assured [place] Incompetent to provide express and informed consent to voluntary admission, and this is incompetent to provide express and informed consent to treatment. The person must be transferred to involuntary status and a petition for a guardian advocate filed with the Circuit Court. [] Refusing to provide express and informed consent to voluntary admission but is competent to provide express and informed consent for treatment. The person must be discharged or transferred to involuntary status. Form shall be completed within 24 hours of a person's arrival at the receiving facility and filed in the clinical record of each person: 1. Admitted on a voluntary basis 2. Permitted to provide express and informed consent to his/her own treatment 3. Allowed to transfer from involuntary to voluntary status 4. Prior to permitting a person to consent to his or her own treatment after having been previously found incompetent to consent to treatment. History of Present Illness Capacity: Has Capacity HPI 76-year-old male Fernandez acted by this physician today after repeatedly making threats to shoot himself and kill himself. Patient was evaluated by this physician yesterday after being brought to the hospital by his . According to the patient's , he becomes very irritable and agitated over small things. He argues with her over these things and works himself up to a highly agitated state. He then threatens to shoot himself with guns, which were previously in his home. His has apparently removed the guns either yesterday or today. When evaluated by this physician yesterday, the patient denied making any threats to harm himself. He answered all questions regarding orientation perfectly, was able to track and remember the conversation, and denied symptoms of depression. He explained he and his have been for 60 years and she had become more difficult to live with. Today, when the patient's went to work, he called her repeatedly. He argued and became highly agitated over the phone. He again repeatedly expressed thoughts and ideas and plans to shoot himself in the head. He felt she would be better off without him. Patient's became alarmed and brought him to the hospital for further evaluation. Upon interview, the patient once again denies making these threats. He claimed his was waiting in the emergency department waiting area, but when this physician went to look, she had departed. As the patient repeatedly exclaimed he did not wish to stay, this physician felt it was incumbent to Fernandez act the patient for further evaluation and treatment. The patient reportedly does not have a history of alcoholism and substance abuse. There is indications in his medical record of cerebral vascular events and a diagnosis of "bipolar". Review of Systems Psychiatric: COMPLAINS OF: Mood changes Except as stated in HPI: all other systems reviewed are Neg Past Psych History Psychological trauma history Denied for psychological trauma. Violence risk - others (6 mos) Moderate to high. Patient was found carrying a pocket knife on today's visit. Violence risk - self (6 mos) High. Patient reportedly makes multiple threats to shoot himself, has weapons at home (until recently) and does not recall or admit to these threats. Substance Abuse History Drugs/Alcohol past 12 months Denied Past Family Social History Coded Allergies: No Known Allergies (Unverified Allergy, Unknown, 04/16/17) Active Scripts Cholecalciferol (D 1000) 1,000 Unit Tab, 1000 UNITS PO DAILY for SUPPLEMENT for 14 Days, TAB Prov:Randy Armstrong MD 02/03/17 Hydrochlorothiazide (Hydrochlorothiazide) 25 Mg Tab, 25 MG PO DAILY for Blood Pressure Management for 14 Days, #14 TAB Prov:Randy Armstrong MD 02/03/17 Escitalopram (Escitalopram) 10 Mg Tab, 10 MG PO DAILY for Depression Control for 14 Days, #14 TAB 1 Refill Prov:Randy Armstrong MD 02/03/17 Duloxetine (Duloxetine ) 60 Mg Capdr, 60 MG PO DAILY for Depression Control for 14 Days, #14 CAP 1 Refill Prov:Randy Armstrong MD 02/03/17 Hydrocodone-Acetaminophen (Hydrocodone-Acetaminophen) 5-325 mg Tab, 1 TAB PO BID Y for PAIN GREATER THAN 5, #14 TAB Prov:Randy Armstrong MD 02/03/17 Meloxicam (Meloxicam) 15 Mg Tab, 15 MG PO DAILY Y for ARTHRITIC PAIN for 14 Days , #14 TAB Prov:Randy Armstrong MD 02/03/17 Losartan (Cozaar) 50 Mg Tab, 100 MG PO DAILY for Blood Pressure Management for 14 Days, #28 TAB Prov:Randy Armstrong MD 02/03/17 Amlodipine (Norvasc) 5 Mg Tab, 5 MG PO DAILY for Blood Pressure Management for 14 Days, #14 TAB Prov:Randy Armstrong MD 02/03/17 Galantamine (Galantamine) 4 Mg Tab, 4 MG PO BID for MEMORY for 14 Days, #28 TAB Prov:Randy Armstrong MD 02/03/17 Reported Medications Bupropion HCl ER 24 HR (Wellbutrin Xl 24 HR) 150 Mg Tab, 150 MG PO DAILY for Control Depression, TAB 0 Refills 11/04/16 Hydrochlorothiazide (Hydrochlorothiazide) 25 Mg Tab, 25 MG PO DAILY, #30 TAB 0 Refills 11/04/16 Galantamine ER (Galantamine ER) 8 Mg Caper, 8 MG PO DAILY for Alzheimer's Dementia, #30 CAP 0 Refills 11/04/16 Losartan (Losartan) 100 Mg Tab, 100 MG PO DAILY for Blood Pressure Management, # 30 TAB 0 Refills 08/04/16 Meloxicam (Mobic) 15 Mg Tab, 15 MG PO DAILY Y for ARTHRITIC PAIN, TAB 0 Refills 08/04/[address] (Cymbalta ) 60 Mg Capdr, 60 MG PO DAILY, #30 CAP 0 Refills 08/04/16 Amlodipine (Amlodipine) 5 Mg Tab, 5 MG PO DAILY for Blood Pressure Management, # 30 TAB 0 Refills 08/04/16 Alprazolam (Xanax) 0.5 Mg Tab, 0.5 MG PO DAILY Y for ANXIETY, TAB 0 Refills 08/04/16 Discontinued Reported Medications Hydrocodone-Acetaminophen (Lortab) 10-325 Mg Tab, 1 TAB PO Q6H Y for PAIN, TAB 0 Refills 08/04/16 Current Medications Medications (Trade) Dose Ordered Sig/Paco Route Start Time Stop Time Status Last Admin (Ativan) 1 mg Q6H PRN PO 04/16/17 15:15 (Ativan Inj) 1 mg Q6H PRN IM 04/16/17 15:15 (Tylenol) 650 mg Q4H PRN PO 04/16/17 15:15 UNV (Milk Of Magnesia Liq) 30 ml DAILY PRN PO 04/16/17 15:15 UNV (Mag-Al Plus Susp Liq) 30 ml Q6H PRN PO 04/16/17 15:15 UNV Family Psych History Denied by the patient. Social History Patient is retired and does not work. His of 60 years does continue to work. He indicated they have no children. He denies a history of alcohol or substance abuse. Patient's Strengths (min. 2) Supportive and has access to healthcare. Physical Exam GENERAL: SKIN: Warm and dry. HEAD: Normocephalic. EYES: No scleral icterus. No injection or drainage. NECK: Supple, trachea midline. No JVD or lymphadenopathy. CARDIOVASCULAR: Regular rate and rhythm without murmurs, gallops, or rubs. RESPIRATORY: Breath sounds equal bilaterally. No accessory muscle use. GASTROINTESTINAL: Abdomen soft, non-tender, nondistended. MUSCULOSKELETAL: No cyanosis, or edema. BACK: Nontender without obvious deformity. No CVA tenderness. Vital Signs Vital Signs Date Time Temp Pulse Resp B/P (MAP) Pulse Ox O2 Delivery O2 Flow Rate FiO2 04/16/17 13:30 97.9 90 18 146/76 (99) 95 Room Air Lab Results Test 04/16/17 13:55 Urine Color YELLOW Urine Turbidity HAZY Urine pH 5.5 Urine Specific [place] 1.017 Urine Protein TRACE mg/dL Urine Glucose (UA) NEG mg/dL Urine Ketones NEG mg/dL Urine Occult Blood NEG Urine Nitrite NEG Urine Bilirubin NEG Urine Urobilinogen 4.0 MG/DL Urine Leukocyte Esterase NEG Urine RBC 1 /hpf Urine WBC 2 /hpf Urine Squamous Epithelial Cells <1 /hpf Urine Bacteria RARE /hpf Urine Hyaline Casts 3 /lpf Urine Mucus FEW /lpf Microscopic Urinalysis Comment CULT NOT INDICATED Mental Status Examination Appearance: Disheveled Consciousness: Alert Orientation: Person, Place, Date/Time Motor Activity: Normal gait Speech: Unremarkable Language: Adequate Fund of Knowledge: Adequate Attention and Concentration: Inadequate Memory: Impaired Mood: Anxious Affect: Anxious Thought Process & Associations: Other Thought Content: Bizarre thinking Hallucination Type: None Delusion Type: None Suicidal Ideation: Yes Suicidal Plan: Yes Suicidal Intention: Yes Homicidal Ideation: No Homicidal Plan: No Homicidal Intention: No Insight: Fair Judgment: Impulsive Assessment & Plan Problem List: (1) Alzheimer's dementia with behavioral disturbance ICD Codes: G30.9 - Alzheimer's disease, unspecified; F02.81 - Dementia in other diseases classified elsewhere with behavioral disturbance (2) Dementia in other diseases classified elsewhere with behavioral disturbance ICD Codes: F02.81 - Dementia in other diseases classified elsewhere with behavioral disturbance Assessment & Plan Estimated LOS: days. 76-year-old male Fernandez acted by this physician after being brought to the hospital both yesterday and today, by his of 60 years , for making repeated threats to shoot himself in the head. Patient has multiple risk factors for violence to self, including his age, physical infirmities, apparent memory problems, highly emotionally labile state, lack of insight and impulsivity. For this reason he is being admitted for further evaluation and treatment. This physician has ordered a CBC and comprehensive metabolic panel to determine if any infectious process or metabolic process may be causing or contributing to the patient's mood problems and behavioral issues. This physician also ordered hemoglobin A1c and a lipid panel as the patient is overweight and may be having significant fluctuations in blood sugar or lipids which are contributing to his emotional and behavioral issues. This physician ordered a thyroid-stimulating hormone level, vitamin B-12 level and vitamin D level as deficiencies in these areas may also cause or contribute to his emotional instability and behavioral dyscontrol. A hospitalist consult was also ordered to assist with his medical workup and request for an MRI of his brain. This physician is also requesting an EKG to determine the patient's cardiac conduction status prior to initiating significant psychotropic medicines which might adversely affect the conduction system of his heart. This physician spoke with the patient's nurse, Angie, regarding his recent behavioral problems. Finally, case management will be involved to assist with further information gathering and disposition planning. Tommy Meredith MD Apr 16, 2017 15:26
[2017-04-16 18:10] VITALS: BP 127/76; PULSE 85; RESP 18; TEMP 97.3; O2SAT 96
[2017-04-17 06:08] VITALS: BP 138/79; PULSE 87; RESP 17; TEMP 97.4; O2SAT 95
[2017-04-17] MEDS: ASPIRIN 325 MG TAB PO SCH (09:45)
[2017-04-17] MEDS: amLODIPine BESYLATE 5 MG TAB PO SCH (09:45)
[2017-04-17] MEDS ORDERED: MELOXICAM 15 MG TAB PO PRN (09:45)
[2017-04-17] MEDS ORDERED: ACETAMINOPHEN/HYDROcodone 325 MG/5 MG TAB PO PRN (09:45)
--- NOTE | 2017-04-17 10:04 | PD.CONS ---
HPI Service [facility] Hospitalists Consult Requested By Dr. Guidry, Psychiatry Reason for Consult AMS Primary Care Physician Augustine Henderson M.D. Diagnoses: History of Present Illness Pt is a 76 y/o M with multiple medical problems including dementia, h/o CVA on 2011 brain MRI, CAD s/p CABG x4, and previous psychiatric admission for suicidal ideation/threat involving firearms. Please see Medical Consultation 01/28/17. Pt follows with Neurology, Dr. Rizvi. Pt previous prescribed galantamine, but not compliant. Pt last seen by Neurology July 2016. Pt has been following with Dr. Ignacio of [facility] Psychiatry (per PCP note) and prescribed cymbalta and seroquel. Last brain MRI in pt's medical records was done 2011 and showed cerebral atrophy, chronic ischemic small vessel disease, and old basal ganglia lacunar infarcts. Pt has a number of brain CT scans in the last 5 years which also reflect atrophy and small vessel ischemic changes. Pt was once again admitted through the ER issues related to suicidal ideation. Pt again is having intermittent confusion prompting Psychiatry to request medical review of Mr. Leary's case. Review of Systems Constitutional: DENIES: Diaphoretic episodes, Fatigue, Fever, Weight gain, Weight loss, Chills, Dizziness, Change in appetite, Night Sweats Endocrine: DENIES: Heat/cold intolerance, Polydipsia, Polyuria, Polyphagia Eyes: DENIES: Blurred vision, Diplopia, Eye inflammation, Eye pain, Vision loss , Photosensitivity, Double Vision Ears, nose, mouth, throat: DENIES: Tinnitus, Hearing loss, Vertigo, Nasal discharge, Oral lesions, Throat pain, Hoarseness, Ear Pain, Running Nose, Epistaxis, Sinus Pain, Toothache, Odynophagia Respiratory: DENIES: Apneas, Cough, Snoring, Wheezing, Hemoptysis, Sputum production, Shortness of breath Cardiovascular: DENIES: Chest pain, Palpitations, Syncope, Dyspnea on Exertion , PND, Lower Extremity Edema, Orthopnea, Claudication Gastrointestinal: DENIES: Abdominal pain, Black stools, Bloody stools, BRB per rectum, Constipation, Diarrhea, GERD, Nausea, Reflux, Vomiting, Difficulty Swallowing, Anorexia Genitourinary: DENIES: Urinary frequency, Urinary incontinence, Urgency, Hematuria, Dysuria, Nocturia Musculoskeletal: DENIES: Joint pain, Muscle aches, Stiffness, Joint Swelling, Back pain, Neck pain Integumentary: DENIES: Abnormal pigmentation, Nail changes, Pruritus, Rash Hematologic/lymphatic: DENIES: Bruising, Lymphadenopathy Immunologic/allergic: DENIES: Eczema, Urticaria Neurologic: DENIES: Abnormal gait, Headache, Localized weakness, Paresthesias, Seizures, Speech Problems, Tremor, Poor Balance Psychiatric: COMPLAINS OF: Anxiety, Confusion, Depression, Hallucinations, Agitation, Suicidal Ideation, DENIES: Mood changes, Homicidal Ideation, Delusions, History of Bipolar, History of Schizophrenia Past Family Social History Past Medical History Dementia Lumbar stenosis with neurogenic claudication Degenerative cervical spinal stenosis Vertebral artery obstruction Hx of stroke CAD s/p CABG 4 HTN Past Surgical History CABG x 4 Inguinal hernia Reported Medications Reported Meds & Active Scripts Active D 1000 (Cholecalciferol) 1,000 Unit Tab 1,000 Units PO DAILY 14 Days Hydrochlorothiazide 25 Mg Tab 25 Mg PO DAILY 14 Days Escitalopram (Escitalopram Oxalate) 10 Mg Tab 10 Mg PO DAILY [address] (Duloxetine HCl) 60 Mg Capdr 60 Mg PO DAILY 14 Days Hydrocodone-Acetaminophen 5-325 mg Tab 1 Tab PO BID PRN Meloxicam 15 Mg Tab 15 Mg PO DAILY PRN 14 Days Cozaar (Losartan Potassium) 50 Mg Tab 100 Mg PO DAILY 14 Days Norvasc (Amlodipine Besylate) 5 Mg Tab 5 Mg PO DAILY 14 Days Galantamine (Galantamine Hydrobromide) 4 Mg Tab 4 Mg PO BID 14 Days Reported Wellbutrin Xl 24 HR (Bupropion HCl) 150 Mg Tab 150 Mg PO DAILY Hydrochlorothiazide 25 Mg Tab 25 Mg PO DAILY Galantamine ER (Galantamine Hydrobromide) 8 Mg Caper 8 Mg PO DAILY Losartan (Losartan Potassium) 100 Mg Tab 100 Mg PO DAILY Mobic (Meloxicam) 15 Mg Tab 15 Mg PO DAILY PRN Cymbalta DR (Duloxetine HCl) 60 Mg Capdr 60 Mg PO DAILY Amlodipine (Amlodipine Besylate) 5 Mg Tab 5 Mg PO DAILY Xanax (Alprazolam) 0.5 Mg Tab 0.5 Mg PO DAILY PRN Allergies: Coded Allergies: No Known Allergies (Unverified Allergy, Unknown, 04/16/17) Family History Noncontributory Social History No reported current alcohol, tobacco or illicit drug use Pt lives with his Physical Exam Vital Signs Vital Signs Date Time Temp Pulse Resp B/P (MAP) Pulse Ox O2 Delivery O2 Flow Rate FiO2 04/17/17 06:08 97.4 87 17 138/79 (98) 95 04/16/17 18:10 97.3 85 18 127/76 (93) 96 04/16/17 16:30 04/16/17 13:30 97.9 90 18 146/76 (99) 95 Room Air Physical Exam GENERAL: This is a well-nourished, well-developed patient, in no apparent distress. SKIN: No rashes, ecchymoses or lesions. Cool and dry. HEAD: Atraumatic. Normocephalic. No temporal or scalp tenderness. EYES: Pupils equal round and reactive. Extraocular motions intact. No scleral icterus. No injection or drainage. ENT: Nose without bleeding, purulent drainage or septal hematoma. Throat without erythema, tonsillar hypertrophy or exudate. Uvula midline. Airway patent. NECK: Trachea midline. No JVD or lymphadenopathy. Supple, nontender, no meningeal signs. CARDIOVASCULAR: Regular rate and rhythm without murmurs, gallops, or rubs. RESPIRATORY: Clear to auscultation. Breath sounds equal bilaterally. No wheezes , rales, or rhonchi. GASTROINTESTINAL: Abdomen soft, non-tender, nondistended. No hepato-splenomegaly , or palpable masses. No guarding. MUSCULOSKELETAL: Extremities without clubbing, cyanosis, or edema. No joint tenderness, effusion, or edema noted. No calf tenderness. Negative Homans sign bilaterally. NEUROLOGICAL: Awake and alert. Cranial nerves II through XII intact. Motor and sensory grossly within normal limits. Five out of 5 muscle strength in all muscle groups. Normal speech. Laboratory Laboratory Tests Test 04/16/17 13:55 Urine Color YELLOW Urine Turbidity HAZY Urine pH 5.5 Urine Specific [place] 1.017 Urine Protein TRACE Urine Glucose (UA) NEG Urine Ketones NEG Urine Occult Blood NEG Urine Nitrite NEG Urine Bilirubin NEG Urine Urobilinogen 4.0 Urine Leukocyte Esterase NEG Urine RBC 1 Urine WBC 2 Urine Squamous Epithelial Cells <1 Urine Bacteria RARE Urine Hyaline Casts 3 Urine Mucus FEW Microscopic Urinalysis Comment CULT NOT INDICATED Urine Opiates Screen NEG Urine Barbiturates Screen NEG Urine Amphetamines Screen NEG Urine Benzodiazepines Screen POS Urine Cocaine Screen NEG Urine Cannabinoids Screen NEG Assessment and Plan Problem List: (1) Suicidal ideation ICD Codes: R45.851 - Suicidal ideations Status: Acute Plan: - Pt is a 76 y/o male with dementia, lumbar stenosis with neurogenic claudication, degenerative cervical spinal stenosis, vertebral artery obstruction, hx of stroke, and CAD s/p CABG 4 who was brought to the ED at [facility] on 01/27/17 but his for suicidal ideation. - Pt now readmitted to [facility] 04/16/17 for suicidal ideation, both incidents possibly involving firearms - Defer Psychiatric care to Dr. Guidry - Pt has h/o dementia - Pt had brain MRI 2011 showing cerebral atrophy, chronic ischemic small vessel disease, and old basal ganglia lacunar infarcts - subsequent brain CT scans also indicate cerebral atrophy and small vessel ischemia - Pt had been following with Dr. Rizvi, Neurology, but non-compliant with medication - Pt had been following with [facility] Psychiatry, Dr. Ignacio. - Pt had been prescribed cymbalta and seroquel - I will assist in ruling out reversible causes of dementia, but pt has a long standing diagnosis of dementia in the medical records. - obtain brain MRI - obtain carotid US - UA --> essentially normal - Pt had recent TSH, free T4, folate, RPR --> WNL. Does NOT need to be repeated - b12 --> pending - obtain ammonia level (2) Dementia ICD Codes: F03.90 - Unspecified dementia without behavioral disturbance Status: Chronic Plan: - see above - continue razadyne (3) CAD (coronary artery disease) ICD Codes: I25.10 - Atherosclerotic heart disease of [place] coronary artery without angina pectoris Status: Chronic Plan: - s/p CABG - continue ASA - Pt has not seen Cardiology in a few years - pt should f/u Dr. Best outpt (4) HTN (hypertension) ICD Codes: I10 - Essential (primary) hypertension Status: Chronic Plan: - continue norvasc 5mg daily - hold losartan - observe BP readings Problem Qualifiers (1) Dementia: Qualified Codes: F03.91 - Unspecified dementia with behavioral disturbance (2) CAD (coronary artery disease): Qualified Codes: I25.10 - Atherosclerotic heart disease of [place] coronary artery without angina pectoris (3) HTN (hypertension): Qualified Codes: I10 - Essential (primary) hypertension Jacob Escamilla DO Apr 17, 2017 10:04
[2017-04-17] MEDS: GALANTAMINE HYDROBROMIDE 4 MG TAB PO SCH ×2 (10:45→21:00)
[2017-04-17 11:45] LABS: AUTOMATED NEUTROPHIL # 6.9 TH/MM3 (1.8-7.7); BASOPHIL # 0.2 TH/MM3 (0-0.2); BASOPHIL % 1.5 % (0.0-2.0); EOSINOPHIL # 0.4 TH/MM3 (0-0.4); EOSINOPHIL % 3.6 % (0.0-4.0); HEMATOCRIT 44.9 % (39.0-51.0); HEMOGLOBIN 15.9 GM/DL (13.0-17.0); LYMPH % 22.3 % (9.0-44.0); LYMPHOCYTE # 2.4 TH/MM3 (1.0-4.8); MEAN CELL VOLUME 87.8 FL (80.0-100.0); MEAN CORPUSCULAR HEMOGLOBIN 31.2 PG (27.0-34.0); MEAN CORPUSCULAR HGB CONC 35.5 % (32.0-36.0); MEAN PLATELET VOLUME 7.7 FL (7.0-11.0); MONO % 9.9 % (0.0-8.0); MONOCYTE # 1.1 TH/MM3 (0-0.9); NEUT % 62.7 % (16.0-70.0); PLATELET COUNT 367 TH/MM3 (150-450); RED BLOOD COUNT 5.11 MIL/MM3 (4.50-5.90); RED CELL DISTRIBUTION WIDTH 13.6 % (11.6-17.2)
[2017-04-17 11:58] LABS: ALBUMIN 4.1 GM/DL (3.4-5.0); AST (GOT) 28 U/L (15-37); BICARBONATE 25.8 MEQ/L (21.0-32.0); BLOOD UREA NITROGEN 28 MG/DL (7-18); CALCIUM 9.5 MG/DL (8.5-10.1); CHLORIDE 104 MEQ/L (98-107); CREATININE 1.59 MG/DL (0.60-1.30); GLOMERULAR FILTRATION RATE 43 ML/MIN (>89); GLUCOSE,RANDOM 109 MG/DL (74-106); SODIUM (NA) 140 MEQ/L (136-145)
[2017-04-17 11:59] LABS: ALT (GPT) 31 U/L (12-78); CHOLESTEROL 213 MG/DL (120-200); TRIGLYCERIDES 172 MG/DL (42-150)
[2017-04-17 12:25] LABS: ALKALINE PHOSPHATASE 92 U/L (45-117); CHOLESTEROL/ HDL RATIO 6.43 RATIO; HDL CHOLESTEROL 33.1 MG/DL (40.0-60.0); LDL CHOLESTEROL 146 MG/DL (0-99); TOTAL BILIRUBIN ADULT 0.9 MG/DL (0.2-1.0)
[2017-04-17 12:41] LABS: HEMOGLOBIN A1C 5.4 % (4.3-6.0)
[2017-04-17] MEDS: LORazepam 1 MG TAB PO PRN (14:43)
[2017-04-17] MEDS ORDERED: GADODIAMIDE PF 287 MG/ML 20 ML VIAL (for RAD MRI) IVCONTRAST ONE (15:29)
--- NOTE | 2017-04-17 16:15 | HHI.PYPN ---
Subjective Remarks Patient was seen and case discussed with nursing. Patient has poor insight into his admission and he denies being aggressive or threatening others or himself. Guns are gone per nursing. Affect is somewhat elevated. He describes himself as "normal." Continues to be followed by the medical team. Alert and oriented 3 Mental Status Examination Appearance: Disheveled Consciousness: Alert Orientation: Person, Place, Date/Time Motor Activity: Normal gait Speech: Unremarkable Language: Adequate Fund of Knowledge: Adequate Attention and Concentration: Inadequate Memory: Impaired Mood: Anxious Affect: Irritable Thought Process & Associations: Other Thought Content: Bizarre thinking Hallucination Type: None Delusion Type: None Suicidal Ideation: No Suicidal Plan: No Suicidal Intention: No Homicidal Ideation: No Homicidal Plan: No Homicidal Intention: No Insight: Fair Judgment: Impulsive Results Labs Test 04/17/17 11:18 04/17/17 11:28 White Blood Count 11.0 TH/MM3 Red Blood Count 5.11 MIL/MM3 Hemoglobin 15.9 GM/DL Hematocrit 44.9 % Mean Corpuscular Volume 87.8 FL Mean Corpuscular Hemoglobin 31.2 PG Mean Corpuscular Hemoglobin Concent 35.5 % Red Cell Distribution Width 13.6 % Platelet Count 367 TH/MM3 Mean Platelet Volume 7.7 FL Neutrophils (%) (Auto) 62.7 % Lymphocytes (%) (Auto) 22.3 % Monocytes (%) (Auto) 9.9 % Eosinophils (%) (Auto) 3.6 % Basophils (%) (Auto) 1.5 % Neutrophils # (Auto) 6.9 TH/MM3 Lymphocytes # (Auto) 2.4 TH/MM3 Monocytes # (Auto) 1.1 TH/MM3 Eosinophils # (Auto) 0.4 TH/MM3 Basophils # (Auto) 0.2 TH/MM3 CBC Comment DIFF FINAL Differential Comment Blood Urea Nitrogen 28 MG/DL Creatinine 1.59 MG/DL Random Glucose 109 MG/DL Total Protein 8.0 GM/DL Albumin 4.1 GM/DL Calcium Level 9.5 MG/DL Alkaline Phosphatase 92 U/L Aspartate Amino Transf (AST/SGOT) 28 U/L Alanine Aminotransferase (ALT/SGPT) 31 U/L Total Bilirubin 0.9 MG/DL Sodium Level 140 MEQ/L Potassium Level 3.4 MEQ/L Chloride Level 104 MEQ/L Carbon Dioxide Level 25.8 MEQ/L Anion Gap 10 MEQ/L Estimat Glomerular Filtration Rate 43 ML/MIN Hemoglobin A1c 5.4 % Triglycerides Level 172 MG/DL Cholesterol Level 213 MG/DL LDL Cholesterol 146 MG/DL HDL Cholesterol 33.1 MG/DL Cholesterol/HDL Ratio 6.43 RATIO Vitamin B12 Level 1815 PG/ML 25-Hydroxy Vitamin D Total 13.6 ng/ML Thyroid Stimulating Hormone 3rd Gen 1.050 uIU/ML Ammonia 28 MCMOL/L Vitals/IOs Vital Signs Date Time Temp Pulse Resp B/P (MAP) Pulse Ox O2 Delivery O2 Flow Rate FiO2 04/17/17 06:08 97.4 87 17 138/79 (98) 95 04/16/17 13:30 Room Air Assessment & Plan Problem List: (1) Alzheimer's dementia with behavioral disturbance ICD Codes: G30.9 - Alzheimer's disease, unspecified; F02.81 - Dementia in other diseases classified elsewhere with behavioral disturbance (2) Dementia in other diseases classified elsewhere with behavioral disturbance ICD Codes: F02.81 - Dementia in other diseases classified elsewhere with behavioral disturbance Assessment & Plan Continue current treatment plan Justification for Cont. Inpt. Patient will decompensate in a less restrictive setting Chicho Braga DO Apr 17, 2017 16:14
--- NOTE | 2017-04-17 16:47 | RADRPT ---
EXAM DATE/TIME: 04/17/2017 15:15 [facility] COMPARISON: No previous studies available for comparison. INDICATIONS : Altered mental status. CONTRAST: 20 cc Omniscan (gadodiamide) IV MEDICAL HISTORY : Dementia. Hypertension. SURGICAL HISTORY : CABG Fusion, lumbar. ENCOUNTER: Initial ACUITY: 1 day PAIN SCORE: 0/10 LOCATION: cranial TECHNIQUE: Multiplanar, multisequence MRI of the brain was performed both prior to and following the administrat ion of paramagnetic contrast. FINDINGS: MRI of the brain is performed in sagittal, axial and coronal planes. The craniocervical junction and midline structures are unremarkable. Diffusion weighted images demonstrate no abnormality. There is n o evidence of acute cortical infarction, acute hemorrhage, mass effect or midline shift is seen. Ther e is periventricular hyperintensity on the T2 weighted images consistent with small vessel vascular d isease significantly more than expected in a patient of this age. Following the administration of con trast no abnormal enhancement is identified. Susceptibility weighted imaging there is a small areas o f microhemorrhage adjacent to the atria the left lateral ventricle. Posterior fossa structures are un remarkable. CONCLUSION: 1. No evidence of acute intracranial pathology. Chronic ischemic changes as above. Jayme Reynolds MD on April 17, 2017 at 16:43 Board Certified Radiologist. This report was verified electronically.
[2017-04-17 18:11] VITALS: BP 118/62; PULSE 88; RESP 18; TEMP 98.2; O2SAT 93
[2017-04-18 06:00] VITALS: BP 179/82; PULSE 75; RESP 17; TEMP 97.6; O2SAT 97
[2017-04-18] MEDS: GALANTAMINE HYDROBROMIDE 4 MG TAB PO SCH ×2 (08:24→20:07)
[2017-04-18] MEDS: ASPIRIN 325 MG TAB PO SCH (08:24)
[2017-04-18] MEDS: amLODIPine BESYLATE 5 MG TAB PO SCH (08:24)
[2017-04-18 09:20] VITALS: BP 157/91; PULSE 78
--- NOTE | 2017-04-18 12:53 | RADRPT ---
EXAM DATE/TIME: 04/18/2017 10:11 [facility] COMPARISON: No previous studies available for comparison. INDICATIONS : Syncope. MEDICAL HISTORY : Hypercholesterolemia. Hypertension. Syncope. Hyperlipidemia. Inguinal hernia. Bipolar disorder. SURGICAL HISTORY : CABG. Appendectomy. Cholecystectomy. Metal fermín placed in back. ENCOUNTER: Initial ACUITY: 1 day PAIN SCORE: 04/21 LOCATION: Bilateral neck PEAK SYSTOLIC VELOCITIES (cm/sec): ICA/CCA RATIO: Right: 1.3 Left: 0.7 ICA: Right: 95 Left: 89 CCA: Right: 72 Left: 121 ECA: Right: 92 Left: 110 VERTEBRAL: Right: 67 antegrade Left: 56 antegrade Elevated flow velocities and ICA/CCA ratios have been found to correlate with increased degrees of vessel stenosis, calculated as percentage of diameter relative to a normal segment of distal ICA/CCA FINDINGS: RIGHT CAROTID: No significant stenosis is visualized. The waveforms are within normal limits. LEFT CAROTID: No significant stenosis is visualized. The waveforms are within normal limits. VERTEBRAL ARTERIES: Antegrade flow is seen in both vertebral arteries. MISCELLANEOUS: None. CONCLUSION: No hemodynamically significant stenosis. Gregg Riojas MD on April 18, 2017 at 12:51 Board Certified Radiologist. This report was verified electronically.
--- NOTE | 2017-04-18 14:17 | EKG ---
Date Performed: 04/17/2017 Time Performed: 11:55:54 PTAGE: 76 years EKG: Sinus rhythm WITH ONE PVC NONSPECIFIC ST-T CHANGE POSSIBLE SEPTAL MYOCARDIAL INFARCTION OF UNDETERMINED AGE Silvano red to previous tracing, the PVC is new, otherwise no signfiicant change. BORDERLINE ECG PREVIOUS TRACING : 11/04/2016 13.50 DOCTOR: Tommy Knapp Interpretating Date/Time 04/18/2017 14:17:31
--- NOTE | 2017-04-18 16:43 | HHI.PYPN ---
Subjective Remarks Patient was seen and case discussed with nursing. Patient says he has improved and he is no longer irritable 3. Nursing does confirm good behavior. He is alert and oriented times to and has not had any outbursts. Compliant with his medications and tolerating them well Mental Status Examination Appearance: Disheveled Consciousness: Alert Orientation: Person, Place, Date/Time Motor Activity: Normal gait Speech: Unremarkable Language: Adequate Fund of Knowledge: Adequate Attention and Concentration: Inadequate Memory: Impaired Mood: Appropriate Affect: Appropriate Thought Process & Associations: Other Thought Content: Bizarre thinking Hallucination Type: None Delusion Type: None Suicidal Ideation: No Suicidal Plan: No Suicidal Intention: No Homicidal Ideation: No Homicidal Plan: No Homicidal Intention: No Insight: Fair Judgment: Impulsive Results Vitals/IOs Vital Signs Date Time Temp Pulse Resp B/P (MAP) Pulse Ox O2 Delivery O2 Flow Rate FiO2 04/18/17 09:20 78 157/91 (113) 04/18/17 06:00 97.6 17 97 04/16/17 13:30 Room Air Intake and Output 04/18/17 04/18/17 04/19/17 08:00 16:00 00:00 Intake Total 0 ml 240 ml Balance 0 ml 240 ml Assessment & Plan Problem List: (1) Alzheimer's dementia with behavioral disturbance ICD Codes: G30.9 - Alzheimer's disease, unspecified; F02.81 - Dementia in other diseases classified elsewhere with behavioral disturbance (2) Dementia in other diseases classified elsewhere with behavioral disturbance ICD Codes: F02.81 - Dementia in other diseases classified elsewhere with behavioral disturbance Assessment & Plan Current treatment plan Justification for Cont. Inpt. Patient will decompensate in a less restrictive setting Chicho Braga DO Apr 18, 2017 16:43
[2017-04-18 18:06] VITALS: BP_SYST 152; BP_SYST 178; BP_DIAS 70; BP_DIAS 90; PULSE 74; PULSE 83; RESP 18; TEMP 97.7; O2SAT 97
[2017-04-18] MEDS: LORazepam 1 MG TAB PO PRN (20:08)
[2017-04-19 05:26] VITALS: BP 155/87; PULSE 86; RESP 18; TEMP 98.1; O2SAT 96
[2017-04-19] MEDS: amLODIPine BESYLATE 5 MG TAB PO SCH (09:07)
[2017-04-19] MEDS: ASPIRIN 325 MG TAB PO SCH (09:07)
[2017-04-19] MEDS: GALANTAMINE HYDROBROMIDE 4 MG TAB PO SCH ×2 (09:07→21:25)
--- NOTE | 2017-04-19 11:28 | HHI.PYPN ---
Subjective Remarks Patient seen in his room with nurse Elizabeth, chart reviewed, patient compliant medications. Patient mildly diffusely confused as to place time and situation. Doesn't remember getting upset and irritated with visitors last night. Will attempt to arrange meetings with the next few days Review of Systems Except as stated in HPI: all other systems reviewed are Neg Mental Status Examination Appearance: Disheveled Consciousness: Alert Orientation: Person, Place, Date/Time Motor Activity: Normal gait Speech: Unremarkable Language: Adequate Fund of Knowledge: Adequate Attention and Concentration: Inadequate Memory: Impaired Mood: Appropriate Affect: Appropriate Thought Process & Associations: Other Thought Content: Bizarre thinking Hallucination Type: None Delusion Type: None Suicidal Ideation: No Suicidal Plan: No Suicidal Intention: No Homicidal Ideation: No Homicidal Plan: No Homicidal Intention: No Insight: Fair Judgment: Impulsive Results Vitals/IOs Vital Signs Date Time Temp Pulse Resp B/P (MAP) Pulse Ox O2 Delivery O2 Flow Rate FiO2 04/19/17 05:26 98.1 86 18 155/87 (109) 96 04/16/17 13:30 Room Air Intake and Output 04/19/17 04/19/17 04/20/17 08:00 16:00 00:00 Intake Total 480 ml Balance 480 ml Assessment & Plan Problem List: (1) Dementia in other diseases classified elsewhere with behavioral disturbance ICD Codes: F02.81 - Dementia in other diseases classified elsewhere with behavioral disturbance (2) Alzheimer's dementia, late onset, with behavioral disturbance ICD Codes: G30.1 - Alzheimer's disease with late onset; F02.81 - Dementia in other diseases classified elsewhere with behavioral disturbance Assessment & Plan Estimated LOS: days patient continue somewhat confused and disorganized that time thus I will speak well from self. Does not remember his behavior issues last night with visitors. We'll attempt to arrange meetings with patient's family Justification for Cont. Inpt. At this time patient will decompensate then placed a lower level of care Discharge Planning This needs to discuss with patient's family Lorne Jacobsen MD Apr 19, 2017 11:28
--- NOTE | 2017-04-19 13:49 | PD.PSY.CON ---
Provisional Diagnosis Admission Date Apr 16, 2017 at 15:07 Rosalie I. Dementia with behavioral disturbance. History of Present Illness Service Psychiatry Consult Requested By Dr. Jacobsen Reason for Consult Second opinion Primary Care Physician Augustine Henderson M.D. HPI 76-year-old male Rebecca acted by this physician today after repeatedly making threats to shoot himself and kill himself. Patient was evaluated by this physician yesterday after being brought to the hospital by his . According to the patient's , he becomes very irritable and agitated over small things. He argues with her over these things and works himself up to a highly agitated state. He then threatens to shoot himself with guns, which were previously in his home. His has apparently removed the guns either yesterday or today. When evaluated by this physician yesterday, the patient denied making any threats to harm himself. He answered all questions regarding orientation perfectly, was able to track and remember the conversation, and denied symptoms of depression. He explained he and his have been for 60 years and she had become more difficult to live with.Today, when the patient's went to work, he called her repeatedly. He argued and became highly agitated over the phone. He again repeatedly expressed thoughts and ideas and plans to shoot himself in the head. He felt she would be better off without him. Patient's became alarmed and brought him to the hospital for further evaluation.Upon interview, the patient once again denies making these threats. He claimed his was waiting in the emergency department waiting area, but when this physician went to look, she had departed. As the patient repeatedly exclaimed he did not wish to stay, this physician felt it was incumbent to [facility] the patient for further evaluation and treatment. The patient reportedly does not have a history of alcoholism and substance abuse. There is indications in his medical record of cerebral vascular events and a diagnosis of "bipolar". The patient is a 76 years old white with psychiatric history of dementia, man brought to the hospital under [facility] because he has been repeatedly stated that he wanted Himself by shooting himself. He was consulted to me for second opinion. In psychiatric evaluation today patient is calm, cooperative, man didn 't to be discharged. Patient says that he doesn't know what his son brought him to the hospital today. He apparently doesn't remember anything about threatening behavior and suicidal statements. He says that he came this morning to the hospital and he does not appear to remember he came last Wednesday. He reports good mood, he denies suicidal and homicidal ideation, he denies visual and auditory hallucinations. However he is irritable, demanding, at times oppositional. Patient is oriented in place, but completely disoriented in time. No agitation, behavioral dysregulation or aggressive behavior reported during this hospitalization. Review of Systems Except as stated in HPI: all other systems reviewed are Neg Past Family Social History Coded Allergies: No Known Allergies (Unverified Allergy, Unknown, 04/16/17) Active Scripts Cholecalciferol (D 1000) 1,000 Unit Tab, 1000 UNITS PO DAILY for SUPPLEMENT for 14 Days, TAB Prov:Randy Armstrong MD 02/03/17 Hydrochlorothiazide (Hydrochlorothiazide) 25 Mg Tab, 25 MG PO DAILY for Blood Pressure Management for 14 Days, #14 TAB Prov:Randy Armstrong MD 02/03/17 Escitalopram (Escitalopram) 10 Mg Tab, 10 MG PO DAILY for Depression Control for 14 Days, #14 TAB 1 Refill Prov:Randy Armstrong MD 02/03/[address] (Duloxetine DR) 60 Mg Capdr, 60 MG PO DAILY for Depression Control for 14 Days, #14 CAP 1 Refill Prov:Randy Armstrong MD 02/03/17 Hydrocodone-Acetaminophen (Hydrocodone-Acetaminophen) 5-325 mg Tab, 1 TAB PO BID Y for PAIN GREATER THAN 5, #14 TAB Prov:Randy Armstrong MD 02/03/17 Meloxicam (Meloxicam) 15 Mg Tab, 15 MG PO DAILY Y for ARTHRITIC PAIN for 14 Days , #14 TAB Prov:Randy Armstrong MD 02/03/17 Losartan (Cozaar) 50 Mg Tab, 100 MG PO DAILY for Blood Pressure Management for 14 Days, #28 TAB Prov:Randy Armstrong MD 02/03/17 Amlodipine (Norvasc) 5 Mg Tab, 5 MG PO DAILY for Blood Pressure Management for 14 Days, #14 TAB Prov:Randy Armstrong MD 02/03/17 Galantamine (Galantamine) 4 Mg Tab, 4 MG PO BID for MEMORY for 14 Days, #28 TAB Prov:Randy Armstrong MD 02/03/17 Reported Medications Bupropion HCl ER 24 HR (Wellbutrin Xl 24 HR) 150 Mg Tab, 150 MG PO DAILY for Control Depression, TAB 0 Refills 11/04/16 Hydrochlorothiazide (Hydrochlorothiazide) 25 Mg Tab, 25 MG PO DAILY, #30 TAB 0 Refills 11/04/16 Galantamine ER (Galantamine ER) 8 Mg Caper, 8 MG PO DAILY for Alzheimer's Dementia, #30 CAP 0 Refills 11/04/16 Losartan (Losartan) 100 Mg Tab, 100 MG PO DAILY for Blood Pressure Management, # 30 TAB 0 Refills 08/04/16 Meloxicam (Mobic) 15 Mg Tab, 15 MG PO DAILY Y for ARTHRITIC PAIN, TAB 0 Refills 08/04/[address] (Cymbalta DR) 60 Mg Capdr, 60 MG PO DAILY, #30 CAP 0 Refills 08/04/16 Amlodipine (Amlodipine) 5 Mg Tab, 5 MG PO DAILY for Blood Pressure Management, # 30 TAB 0 Refills 08/04/16 Alprazolam (Xanax) 0.5 Mg Tab, 0.5 MG PO DAILY Y for ANXIETY, TAB 0 Refills 08/04/16 Discontinued Reported Medications Hydrocodone-Acetaminophen (Lortab) 10-325 Mg Tab, 1 TAB PO Q6H Y for PAIN, TAB 0 Refills 08/04/16 Current Medications Medications (Trade) Dose Ordered Sig/Paco Route Start Time Stop Time Status Last Admin (Ativan) 1 mg Q6H PRN PO 04/16/17 15:15 04/18/17 20:08 (Ativan Inj) 1 mg Q6H PRN IM 04/16/17 15:15 04/16/17 23:18 (Tylenol) 650 mg Q4H PRN PO 04/16/17 15:15 (Milk Of Magnesia Liq) 30 ml DAILY PRN PO 04/16/17 15:15 (Mag-Al Plus Susp Liq) 30 ml Q6H PRN PO 04/16/17 15:15 (Aspirin) 325 mg DAILY PO 04/17/17 09:45 04/19/17 09:07 (Norvasc) 5 mg DAILY PO 04/17/17 09:45 04/19/17 09:07 (Walsh 5-325 Mg) 1 tab BID PRN PO 04/17/17 09:45 (Mobic) 15 mg DAILY PRN PO 04/17/17 09:45 (Razadyne) 4 mg BID PO 04/17/17 10:45 04/19/17 09:07 Patient's Strengths (min. 2) Supportive and has access to healthcare. Physical Exam Vital Signs Vital Signs Date Time Temp Pulse Resp B/P (MAP) Pulse Ox O2 Delivery O2 Flow Rate FiO2 04/19/17 05:26 98.1 86 18 155/87 (109) 96 04/16/17 13:30 Room Air I/O 04/19/17 04/19/17 04/19/17 07:59 15:59 23:59 Intake Total 480 ml Balance 480 ml Mental Status Examination Appearance: Disheveled Consciousness: Alert Orientation: Person, Place, Date/Time Motor Activity: Normal gait Speech: Unremarkable Language: Adequate Fund of Knowledge: Adequate Attention and Concentration: Inadequate Memory: Impaired Mood: Appropriate Affect: Appropriate Thought Process & Associations: Other Thought Content: Bizarre thinking Hallucination Type: None Delusion Type: None Suicidal Ideation: No Suicidal Plan: No Suicidal Intention: No Homicidal Ideation: No Homicidal Plan: No Homicidal Intention: No Insight: Fair Judgment: Impulsive Assessment & Plan Problem List: (1) Dementia in other diseases classified elsewhere with behavioral disturbance ICD Codes: F02.81 - Dementia in other diseases classified elsewhere with behavioral disturbance (2) Alzheimer's dementia, late onset, with behavioral disturbance ICD Codes: G30.1 - Alzheimer's disease with late onset; F02.81 - Dementia in other diseases classified elsewhere with behavioral disturbance Assessment & Plan: I have seen and examined this patient, reviewed the documentation, I agree and concur with Dr. Jacobsen's assessment and plan. Assessment & Plan Estimated LOS: Alfa Chapman MD Apr 19, 2017 13:49
[2017-04-19 18:00] VITALS: BP 175/88; PULSE 85; RESP 18; TEMP 98.3; O2SAT 95
[2017-04-19 18:10] VITALS: BP 149/85
[2017-04-19] MEDS: LORazepam 1 MG TAB PO PRN (21:25)
[2017-04-20 05:58] VITALS: BP 179/91; PULSE 84; RESP 18; TEMP 98.4; O2SAT 97
[2017-04-20] MEDS: amLODIPine BESYLATE 5 MG TAB PO SCH (06:34)
[2017-04-20] MEDS: ASPIRIN 325 MG TAB PO SCH (06:35)
[2017-04-20] MEDS ORDERED: amLODIPine BESYLATE 5 MG TAB PO ONE (07:30)
[2017-04-20] MEDS: GALANTAMINE HYDROBROMIDE 4 MG TAB PO SCH ×2 (08:30→20:12)
--- NOTE | 2017-04-20 10:07 | HHI.PYPN ---
Subjective Remarks Patient seen in his room with nurse Henry, chart review, patient compliant medication. Calm with me focusing and discharge willing to go with his . Showing very little insight into his behaviors leading to this hospitalization. He is somewhat confused today as to date and situation. Need to contact patient's together further information and data from her Review of Systems Except as stated in HPI: all other systems reviewed are Neg Mental Status Examination Appearance: Disheveled Consciousness: Alert Orientation: Person, Place, Date/Time Motor Activity: Normal gait Speech: Unremarkable Language: Adequate Fund of Knowledge: Adequate Attention and Concentration: Inadequate Memory: Impaired Mood: Appropriate Affect: Appropriate Thought Process & Associations: Other Thought Content: Bizarre thinking Hallucination Type: None Delusion Type: None Suicidal Ideation: No Suicidal Plan: No Suicidal Intention: No Homicidal Ideation: No Homicidal Plan: No Homicidal Intention: No Insight: Fair Judgment: Impulsive Results Vitals/IOs Vital Signs Date Time Temp Pulse Resp B/P (MAP) Pulse Ox O2 Delivery O2 Flow Rate FiO2 04/20/17 05:58 98.4 84 18 179/91 (120) 97 04/16/17 13:30 Room Air Intake and Output 04/20/17 04/20/17 04/21/17 08:00 16:00 00:00 Intake Total 240 ml Balance 240 ml Assessment & Plan Problem List: (1) Dementia in other diseases classified elsewhere with behavioral disturbance ICD Codes: F02.81 - Dementia in other diseases classified elsewhere with behavioral disturbance (2) Alzheimer's dementia, late onset, with behavioral disturbance ICD Codes: G30.1 - Alzheimer's disease with late onset; F02.81 - Dementia in other diseases classified elsewhere with behavioral disturbance Assessment & Plan Estimated LOS: days patient continues somewhat confused and disoriented, though no behavior problems noted. Except that he wants out of us or go home with his . We need to Contact patient's any further information related to patient's behaviors Justification for Cont. Inpt. At this time patient will decompensate then placed in the lower level of care Discharge Planning When in contact patient is fairly developed determined placement issues with Lorne Jacobsen MD Apr 20, 2017 10:07
[2017-04-20] MEDS: LORazepam 1 MG TAB PO PRN ×2 (10:50→20:12)
[2017-04-20 17:17] VITALS: BP 159/86; PULSE 83; RESP 20; TEMP 98.4; O2SAT 96
[2017-04-21 06:04] VITALS: BP 167/54; PULSE 81; RESP 18; TEMP 97.5; O2SAT 96
[2017-04-21] MEDS: GALANTAMINE HYDROBROMIDE 4 MG TAB PO SCH ×2 (09:26→21:58)
[2017-04-21] MEDS: ASPIRIN 325 MG TAB PO SCH (09:26)
--- NOTE | 2017-04-21 11:50 | HHI.PYPN ---
Subjective Remarks Patient seen in [facility] with nurse Selina, patient continues somewhat confused but overall calm focusing and discharge went to be with his . He denies suicidality. Denies voices. On review of medications patient had been on Cymbalta in the past we'll restart that medication today. Patient scheduled for [facility] tomorrow Review of Systems Except as stated in HPI: all other systems reviewed are Neg Mental Status Examination Appearance: Disheveled Consciousness: Alert Orientation: Person, Place, Date/Time Motor Activity: Normal gait Speech: Unremarkable Language: Adequate Fund of Knowledge: Adequate Attention and Concentration: Inadequate Memory: Impaired Mood: Appropriate Affect: Appropriate Thought Process & Associations: Other Thought Content: Bizarre thinking Hallucination Type: None Delusion Type: None Suicidal Ideation: No Suicidal Plan: No Suicidal Intention: No Homicidal Ideation: No Homicidal Plan: No Homicidal Intention: No Insight: Fair Judgment: Impulsive Results Vitals/IOs Vital Signs Date Time Temp Pulse Resp B/P (MAP) Pulse Ox O2 Delivery O2 Flow Rate FiO2 04/21/17 06:04 97.5 81 18 167/54 (91) 96 Assessment & Plan Problem List: (1) Dementia in other diseases classified elsewhere with behavioral disturbance ICD Codes: F02.81 - Dementia in other diseases classified elsewhere with behavioral disturbance (2) Alzheimer's dementia, late onset, with behavioral disturbance ICD Codes: G30.1 - Alzheimer's disease with late onset; F02.81 - Dementia in other diseases classified elsewhere with behavioral disturbance Assessment & Plan Estimated LOS: days patient to somewhat diffusely confused but no behavioral problems noted. See medication adjustment above. Justification for Cont. Inpt. At this time patient will decompensate with placed in a lower level of care Discharge Planning Consider return home with family Lorne Jacobsen MD Apr 21, 2017 11:50
[2017-04-21 18:00] VITALS: BP 146/81; PULSE 83; RESP 18; TEMP 98.3; O2SAT 98
[2017-04-21] MEDS: LORazepam 1 MG TAB PO PRN (21:58)
[2017-04-22 05:47] VITALS: BP_SYST 160; BP_SYST 172; BP_DIAS 106; BP_DIAS 96; PULSE 72; RESP 18; TEMP 97.7; O2SAT 97
[2017-04-22] MEDS: DULoxetine HCl DR 60 MG CAP PO SCH (08:36)
[2017-04-22] MEDS: ASPIRIN 325 MG TAB PO SCH (08:37)
[2017-04-22] MEDS: GALANTAMINE HYDROBROMIDE 4 MG TAB PO SCH ×2 (08:37→21:03)
[2017-04-22 10:43] VITALS: BP 156/86; PULSE 91
--- NOTE | 2017-04-22 11:37 | HHI.PYPN ---
Subjective Remarks Patient seen in [place] [facility] today, jugular drill his ordered patient to be discharged tomorrow to his . Patient's is visited daily and there is the assumption that she will be willing to take him home. The liver counselor contact patient's to verify this. The meantime patient calm and cooperative with some diffuse confusion continuing. Though he denies suicidality homicidality voices or visions. For now continue treatment will await verification from patient's about placement home either this afternoon or tomorrow Review of Systems Except as stated in HPI: all other systems reviewed are Neg Mental Status Examination Appearance: Disheveled Consciousness: Alert Orientation: Person, Place, Date/Time Motor Activity: Normal gait Speech: Unremarkable Language: Adequate Fund of Knowledge: Adequate Attention and Concentration: Inadequate Memory: Impaired Mood: Appropriate Affect: Appropriate Thought Process & Associations: Other Thought Content: Bizarre thinking Hallucination Type: None Delusion Type: None Suicidal Ideation: No Suicidal Plan: No Suicidal Intention: No Homicidal Ideation: No Homicidal Plan: No Homicidal Intention: No Insight: Fair Judgment: Impulsive Results Vitals/IOs Vital Signs Date Time Temp Pulse Resp B/P (MAP) Pulse Ox O2 Delivery O2 Flow Rate FiO2 04/22/17 10:43 91 156/86 (109) 04/22/17 05:47 97.7 18 97 Intake and Output 04/22/17 04/22/17 04/23/17 08:00 16:00 00:00 Intake Total 600 ml Balance 600 ml Assessment & Plan Problem List: (1) Dementia in other diseases classified elsewhere with behavioral disturbance ICD Codes: F02.81 - Dementia in other diseases classified elsewhere with behavioral disturbance (2) Alzheimer's dementia, late onset, with behavioral disturbance ICD Codes: G30.1 - Alzheimer's disease with late onset; F02.81 - Dementia in other diseases classified elsewhere with behavioral disturbance Assessment & Plan Estimated LOS: days patient order to be discharged by noon tomorrow by Dr. Garza [place] [facility]. Need to verify with patient's for willingness have him home and she'll pick them up later this afternoon or tomorrow Justification for Cont. Inpt. Need verification from patient's that she will take him back home Discharge Planning See above Lorne Jacobsen MD Apr 22, 2017 11:37
[2017-04-22 16:47] VITALS: BP 153/88; PULSE 86; RESP 18; TEMP 97.8; O2SAT 96
[2017-04-22] MEDS: LORazepam 1 MG TAB PO PRN (21:28)
[2017-04-23 06:21] VITALS: BP 144/82; PULSE 75; RESP 16; TEMP 98.1; O2SAT 96
[2017-04-23] MEDS: ASPIRIN 325 MG TAB PO SCH (08:09)
[2017-04-23] MEDS: GALANTAMINE HYDROBROMIDE 4 MG TAB PO SCH (08:09)
[2017-04-23] MEDS: DULoxetine HCl DR 60 MG CAP PO SCH (08:09)
[2017-04-23] MEDS ORDERED: LORA-474 PO (10:37)
[2017-04-23] MEDS ORDERED: GALA4TAB PO (10:37)
[2017-04-23] MEDS ORDERED: AMLO10 PO (10:37)
[2017-04-23] MEDS ORDERED: MOBI15TA PO (10:37)
[2017-04-23] MEDS ORDERED: ASA325 PO (10:37)
[2017-04-23] MEDS ORDERED: CYMB60CA PO (10:37)
--- NOTE | 2017-04-23 10:43 | HHI.DS ---
Psychiatry Discharge Summary Inpatient Psychiatric care?: Yes Advance Directive: No Reason Not Provided: Due to Patient Condition Mental Health AdvanceDirective: No Health Care Proxy: No Admission Admission Date Apr 16, 2017 at 15:07 Admission Diagnosis: (1) Alzheimer's dementia, late onset, with behavioral disturbance ICD Code: G30.1 - Alzheimer's disease with late onset; F02.81 - Dementia in other diseases classified elsewhere with behavioral disturbance (2) Dementia in other diseases classified elsewhere with behavioral disturbance ICD Code: F02.81 - Dementia in other diseases classified elsewhere with behavioral disturbance Brief History 76-year-old male Rebecca acted by this physician today after repeatedly making threats to shoot himself and kill himself. Patient was evaluated by this physician yesterday after being brought to the hospital by his . According to the patient's , he becomes very irritable and agitated over small things. He argues with her over these things and works himself up to a highly agitated state. He then threatens to shoot himself with guns, which were previously in his home. His has apparently removed the guns either yesterday or today. When evaluated by this physician yesterday, the patient denied making any threats to harm himself. He answered all questions regarding orientation perfectly, was able to track and remember the conversation, and denied symptoms of depression. He explained he and his have been for 60 years and she had become more difficult to live with.Today, when the patient's went to work, he called her repeatedly. He argued and became highly agitated over the phone. He again repeatedly expressed thoughts and ideas and plans to shoot himself in the head. He felt she would be better off without him. Patient's became alarmed and brought him to the hospital for further evaluation.Upon interview, the patient once again denies making these threats. He claimed his was waiting in the emergency department waiting area, but when this physician went to look, she had departed. As the patient repeatedly exclaimed he did not wish to stay, this physician felt it was incumbent to Fernandez act the patient for further evaluation and treatment. The patient reportedly does not have a history of alcoholism and substance abuse. There is indications in his medical record of cerebral vascular events and a diagnosis of "bipolar". The patient is a 76 years old white with psychiatric history of dementia, man brought to the hospital under Fernandez act because he has been repeatedly stated that he wanted Himself by shooting himself. He was consulted to me for second opinion. In psychiatric evaluation today patient is calm, cooperative, man didn 't to be discharged. Patient says that he doesn't know what his son brought him to the hospital today. He apparently doesn't remember anything about threatening behavior and suicidal statements. He says that he came this morning to the hospital and he does not appear to remember he came last Wednesday. He reports good mood, he denies suicidal and homicidal ideation, he denies visual and auditory hallucinations. However he is irritable, demanding, at times oppositional. Patient is oriented in place, but completely disoriented in time. No agitation, behavioral dysregulation or aggressive behavior reported during this hospitalization. Tobacco Use In Past 30 Days: No Tobacco Past 30 Days Alcohol Use: Never Hospital Course Patient's hospital course was uneventful, is no significant behavior problems did need occasional redirection. Initial compliance with medications. Is some mild increase need for interventions towards evening it was quite controllable by staff. Patient today is calm cooperative denies suicidality homicidality voices or visions. At this point patient reached maximum benefit of this hospitalization is for discharge to his with Rx times a month including when necessary Ativan. Patient follow-up with Dr. Ignacio through for healthcare next week Results Blood Pressure 144 / 82 Vital Signs Date Time Temp Pulse Resp B/P (MAP) Pulse Ox O2 Delivery O2 Flow Rate FiO2 04/23/17 06:21 98.1 75 16 144/82 (102) 96 Laboratory Results Test 04/17/17 11:18 Cholesterol Level 213 MG/DL (120-200) HDL Cholesterol 33.1 MG/DL (40.0-60.0) Hemoglobin A1c 5.4 % (4.3-6.0) LDL Cholesterol 146 MG/DL (0-99) Triglycerides Level 172 MG/DL (42-150) Summary of Procedures None done Imaging Last Impressions Carotid Artery Ultrasound 04/18/17 0000 Signed Impressions: Service Date/Time: Tuesday, April 18, 2017 10:11 - CONCLUSION: No hemodynamically significant stenosis. Gregg Riojas MD Brain MRI 04/17/17 0000 Signed Impressions: Service Date/Time: Monday, April 17, 2017 15:15 - CONCLUSION: 1. No evidence of acute intracranial pathology. Chronic ischemic changes as above. Jayme Reynolds MD Pending results at discharge: No Medications # of Antipsychotic meds at D/C: 0 Approp Antipsych med options 1 - Minimum of three failed multiple trials of monotherapy. 2 - Documented plan to taper to monotherapy due to previous use of multiple meds OR cross-taper in progress at D/C. 3 - Documentation of augmentation of Clozapine. 4 - Justification other than those listed in allowable values 1-3, document here : Discharge Discharge Date: Apr 23, 2017 Discharge Diagnosis: (1) Alzheimer's dementia, late onset, with behavioral disturbance Diagnosis: Principal ICD Code: G30.1 - Alzheimer's disease with late onset; F02.81 - Dementia in other diseases classified elsewhere with behavioral disturbance (2) Dementia in other diseases classified elsewhere with behavioral disturbance Diagnosis: Principal ICD Code: F02.81 - Dementia in other diseases classified elsewhere with behavioral disturbance Pt Condition on Discharge: Stable Discharge Disposition: Discharge Home Discharge Instructions Diet Instructions: As Tolerated, No Restrictions Activities you can perform: Regular-No Restrictions Scheduled Appointment: [facility] Appointment Date: May 04, 2017 Appointment Time: 12:00 PM Discharge Time > 30 minutes Mental Status Examination Appearance: Disheveled Consciousness: Alert Orientation: Person, Place, Date/Time Motor Activity: Normal gait Speech: Unremarkable Language: Adequate Fund of Knowledge: Adequate Attention and Concentration: Inadequate Memory: Impaired Mood: Appropriate Affect: Appropriate Thought Process & Associations: Other Thought Content: Bizarre thinking Hallucination Type: None Delusion Type: None Suicidal Ideation: No Suicidal Plan: No Suicidal Intention: No Homicidal Ideation: No Homicidal Plan: No Homicidal Intention: No Insight: Fair Judgment: Impulsive Discharge/Advance Care Plan Health Problems: (1) Dementia in other diseases classified elsewhere with behavioral disturbance (2) Alzheimer's dementia, late onset, with behavioral disturbance Goals to promote your health * To prevent worsening of your condition and complications * To maintain your health at the optimal level Directions to meet your goals Take your medications as prescribed Follow your dietary instruction Follow activity as directed Keep your appointments as scheduled Take your immunizations and boosters as scheduled If your symptoms worsen call your PCP, if no PCP go to Urgent Care Center or Emergency Room For 02/11 questions related to your inpatient stay or results of tests pending at discharge, please contact Dr. Lorne Jacobsen at Smoking is Dangerous to Your Health. Avoid second hand smoking Lorne Jacobsen MD Apr 23, 2017 10:43
== END 2017-04-23 12:15 | disposition home or self-care (01) | DRG 57 ==
LOC: NEPJ 13:28 → NEDA 15:07 → H250 16:45
PROVIDERS: ADMIT Psychiatry & Neurology Psychiatry; ATTEND Psychiatry & Neurology Psychiatry
DX: G30.1 Alzheimer's disease with late onset (principal); F02.81 Dementia in other diseases classified elsewhere, unspecified severity, with behavioral disturbance; R45.851 Suicidal ideations; M48.02 Spinal stenosis, cervical region; E66.3 Overweight; I25.10 Atherosclerotic heart disease of native coronary artery without angina pectoris; M48.062 Spinal stenosis, lumbar region with neurogenic claudication; I10 Essential (primary) hypertension; Z68.30 Body mass index [BMI] 30.0-30.9, adult; Z91.14 Patient's other noncompliance with medication regimen; Z86.73 Personal history of transient ischemic attack (TIA), and cerebral infarction without residual deficits; Z95.1 Presence of aortocoronary bypass graft
CPT/HCPCS: 70553; 80053; 80061; 80307; 81001; 82140; 82306; 82607; 83036; 84443; 85007; 85025; 85027; 93005; 93880; 96372; 96374; 99285; A9579; J1630; J2060

== ENCOUNTER 2018-01-24 11:14 | Observation (INO) ==
[2018-01-24] MEDS ORDERED: Sod Chloride 0.9% Inj 1,000 ML IV.SIG SCH ×2 (11:30→12:53)
--- NOTE | 2018-01-24 12:06 | ED ---
HPI General Chief complaint: Altered Mental Status Stated complaint: Alter mental Time Seen by Provider: 01/24/18 11:23 Source: patient, family and EMS Mode of arrival: EMS Limitations: altered mental status History of Present Illness HPI narrative: 77-year-old male the presents to the ED for evaluation of altered mental status. Patient apparently has been altered today. Per patient and per EVAC report apparently patient "does not feel well ". He does have a history of dementia and psychiatric illness. He has a history of bipolar disorder. He has a history of CABG as well. Patient himself is not able to provide much information but the only thing he tells me is that he "does not feel well ". Per report there was given apparently and patient were outside and she was in a store when she went to the bathroom and then came back the patient was feeling not well and was looking like he was about to pass out. Patient apparently had a syncopal episode was on the floor. She herself helped him into the floor. Patient did lost consciousness but cannot remember what happened. Patient denies any pain. No chest pain or shortness of breath. Per report I was given patient apparently might have taken 1 of each of his medications with otherwise permission. for the most part is the one who provides all the medications to the patient but per she believes that he took 1 of each again. Questionable this is causing the symptoms. Patient per EVAC was found hypotensive and for the most part altered. Related Data Home Medications Medication Instructions Recorded Confirmed amlodipine 10 mg PO DAILY 01/24/18 01/24/18 escitalopram oxalate 10 mg PO DAILY 01/24/18 01/24/18 losartan 100 mg PO DAILY 01/24/18 01/24/18 quetiapine 50 mg PO HS 01/24/18 01/24/18 terazosin 5 mg PO HS 01/24/18 01/24/18 Allergies Allergy/AdvReac Type Severity Reaction Status Date / Time No Known Allergies Allergy Verified 01/24/18 11:44 Review of Systems ROS: all other systems reviewed are negative [facility] Medical History Medical History Dementia (Acute) Hernia (Acute) Hyperlipemia (Acute) Hypertension (Acute) Surgical history unknown (Acute) Surgical History Surgical History Hx of CABG (Acute) Social History Social History Substance History: No History of Abuse Second Hand Smoke Exposure: No Smoking Status: Never smoker How Often Do You Have a Drink Containing Alcohol: Never Recent Travel in [facility] within the Last 8 Weeks: No Recent Out of Country Travel within the Last 8 Weeks: No Immunization History Tetanus Immunization: <5 Years Exam Narrative Exam Narrative: GENERAL: Well appearing. SKIN: Focused skin assessment warm/dry. HEAD: Atraumatic. Normocephalic. EYES: Pupils equal and round. No scleral icterus. No injection or drainage. ENT: No nasal bleeding or discharge. Mucous membranes pink and moist. Tongue is midline. No uvula deviation. NECK: Trachea midline. No JVD. CARDIOVASCULAR: Regular rate and rhythm. No murmur appreciated. RESPIRATORY: No accessory muscle use. Clear to auscultation. Breath sounds equal bilaterally. GASTROINTESTINAL: Abdomen soft, non-tender, nondistended. Hepatic and splenic margins not palpable. MUSCULOSKELETAL: No obvious deformities. No clubbing. No cyanosis. No edema. Full range of motion of the upper and lower extremities bilaterally. 2+ pulses bilaterally. NEUROLOGICAL: Lethargic but arousable. No obvious cranial nerve deficits. Motor grossly within normal limits. Normal speech. PSYCHIATRIC: Altered mood and affect; insight and judgment cannot assess. Course Initial Documented Vital Signs Temperature 97.9 F 01/24/18 11:34 Pulse Rate 70 01/24/18 11:34 Respiratory Rate 14 01/24/18 11:34 Blood Pressure 90/64 L 01/24/18 11:34 Pulse Oximetry 94 L 01/24/18 11:34 Last Documented Vital Signs Temperature 97.9 F 01/24/18 11:34 Pulse Rate 70 01/24/18 13:21 Respiratory Rate 18 01/24/18 13:21 Blood Pressure 104/66 01/24/18 13:21 Pulse Oximetry 96 01/24/18 13:21 Medical Decision Making [facility] Narrative Medical decision making narrative: 77-year-old male the presents to the ED for evaluation of altered mental status and syncope. Patient was properly examined and was found to have signs and symptoms consistent with appears to be syncope with altered mental status. Unclear if this is also overdose. Labs and imaging were done. Patient was given IV fluids here. Labs and imaging show evidence lactic acidosis but otherwise unremarkable exam. Patient somewhat hypotensive after fluid feels improved. Patient mentating better. We called poison control who recommended observation secondary to the patient's possible taking amlodipine and losartan. Mainly because the QR interval may be slightly elevated and the get concerned about this. Case discussed with Dr. Cronin who agrees admission to his service. Family and patient agree with admission. Patient was admitted. Medical Screen Exam Complete: Yes Emergency Medical Condition: Yes Differential Diagnosis Differential Diagnosis: Dementia versus altered mental status versus overdose versus sepsis versus dehydration versus syncope Medical Records Medical records reviewed: Yes I reviewed the patient's medical records. Lab Data Lab results reviewed: Yes I reviewed the patient's lab results. Lab results narrative: Troponin and CK-MB negative. Result diagrams: 01/24/18 12:05 01/24/18 12:05 Lab Results 01/24/18 01/24/18 01/24/18 Range/Units 12:05 12:05 12:05 WBC 8.5 (4.0-11.0) th/mm3 RBC 4.78 (4.50-5.90) mil/mm3 Hgb 15.0 (13.0-17.0) gm/dL Hct 43.1 (39.0-51.0) % MCV 90.2 (80.0-100.0) fL MCH 31.3 (27.0-34.0) pg MCHC 34.7 (32.0-36.0) % RDW 13.4 (11.6-17.2) % Plt Count 173 (150-450) th/mm3 MPV 8.7 (7.0-11.0) fL Neut % (Auto) 72.5 H (16.0-70.0) % Lymph % (Auto) 16.5 (9.0-44.0) % [place] % (Auto) 7.6 (0.0-8.0) % Eos % (Auto) 2.2 (0.0-4.0) % Baso % (Auto) 1.2 (0.0-2.0) % Neut # (Auto) 6.2 (1.8-7.7) th/mm3 Lymph # (Auto) 1.4 (1.0-4.8) th/mm3 [place] # (Auto) 0.6 (0.0-0.9) th/mm3 Eos # (Auto) 0.2 (0.0-0.4) th/mm3 Baso # (Auto) 0.1 (0.0-0.2) th/mm3 WBC Differential . Differential Comment Auto diff final PT 11.4 (9.8-11.6) sec INR 1.1 Ratio APTT 25.4 (24.3-30.1) sec Sodium 145 (136-145) meq/L Potassium 3.5 (3.5-5.1) meq/L Chloride 109 H (98-107) meq/L Carbon Dioxide 25.5 (21.0-32.0) meq/L Anion Gap 11 (5-15) meq/L BUN 15 (7-18) mg/dL Creatinine 1.56 H (0.60-1.30) mg/dL Estimated GFR 43 L (>89) mL/min Random Glucose 116 H (74-106) mg/dL Lactic Acid (0.4-2.0) mmol/L Calcium 8.8 (8.5-10.1) mg/dL Total Bilirubin 1.1 H (0.2-1.0) mg/dL AST 29 (15-37) U/L ALT 30 (12-78) U/L Alkaline Phosphatase 87 (45-117) U/L Ammonia (11-32) mcmol/L Troponin I 0.03 (0.02-0.05) ng/mL B-Natriuretic Peptide (0-100) pg/mL Total Protein 7.1 (6.4-8.2) g/dL Albumin 3.5 (3.4-5.0) g/dL TSH 2.100 (0.358-3.740) uIU/mL 01/24/18 01/24/18 01/24/18 Range/Units 12:05 12:05 12:05 WBC (4.0-11.0) th/mm3 RBC (4.50-5.90) mil/mm3 Hgb (13.0-17.0) gm/dL Hct (39.0-51.0) % MCV (80.0-100.0) fL MCH (27.0-34.0) pg MCHC (32.0-36.0) % RDW (11.6-17.2) % Plt Count (150-450) th/mm3 MPV (7.0-11.0) fL Neut % (Auto) (16.0-70.0) % Lymph % (Auto) (9.0-44.0) % [place] % (Auto) (0.0-8.0) % Eos % (Auto) (0.0-4.0) % Baso % (Auto) (0.0-2.0) % Neut # (Auto) (1.8-7.7) th/mm3 Lymph # (Auto) (1.0-4.8) th/mm3 [place] # (Auto) (0.0-0.9) th/mm3 Eos # (Auto) (0.0-0.4) th/mm3 Baso # (Auto) (0.0-0.2) th/mm3 WBC Differential Differential Comment PT (9.8-11.6) sec INR Ratio APTT (24.3-30.1) sec Sodium (136-145) meq/L Potassium (3.5-5.1) meq/L Chloride (98-107) meq/L Carbon Dioxide (21.0-32.0) meq/L Anion Gap (5-15) meq/L BUN (7-18) mg/dL Creatinine (0.60-1.30) mg/dL Estimated GFR (>89) mL/min Random Glucose (74-106) mg/dL Lactic Acid 2.6 H (0.4-2.0) mmol/L Calcium (8.5-10.1) mg/dL Total Bilirubin (0.2-1.0) mg/dL AST (15-37) U/L ALT (12-78) U/L Alkaline Phosphatase (45-117) U/L Ammonia 20 (11-32) mcmol/L Troponin I (0.02-0.05) ng/mL B-Natriuretic Peptide 203 H (0-100) pg/mL Total Protein (6.4-8.2) g/dL Albumin (3.4-5.0) g/dL TSH (0.358-3.740) uIU/mL Imaging Data Attestation: I personally reviewed and interpreted this imaging study as follows : Radiologist's impression: Chest X-Ray 01/24/18 11:26 CONCLUSION: 1. Cardiomegaly with positive fluid balance. 2. Minimal bibasilar airspace disease, likely atelectasis. Head CT 01/24/18 11:26 CONCLUSION: 1. Senescent changes with small remote bilateral basal ganglia infarcts. 2. No acute intracranial abnormality. . ECG Data Attestation: I personally reviewed and interpreted this ECG as follows: Interpretation: EKG shows sinus rhythm with no sign of acute ischemia and arrhythmia read by me and attending. Discharge Plan Discharge Disposition Patient Disposition: 30 Still Patient Discharge Details Diagnosis: Altered mental status, Acute hypotension, Syncope, Overdose Physicians Team ED Provider: Paloma Castrejon ED Midlevel Provider: Jesus Wood Primary Care Provider: Augustine Henderson Attending Provider: Tommy Payton Discharge Interventions Interventions: Vital Signs Last Done: 01/24/18 13:21 Status ED Status: Admitted Observation Patient
[2018-01-24 12:33] LABS: Baso # (Auto) 0.1 th/mm3 (0.0-0.2); Baso % (Auto) 1.2 % (0.0-2.0); Eos # (Auto) 0.2 th/mm3 (0.0-0.4); Eos % (Auto) 2.2 % (0.0-4.0); Hematocrit 43.1 % (39.0-51.0); Lymph # (Auto) 1.4 th/mm3 (1.0-4.8); Lymph % (Auto) 16.5 % (9.0-44.0); Mean Corpuscular HGB Conc 34.7 % (32.0-36.0); Mean Corpuscular Hemoglobin 31.3 pg (27.0-34.0); Mean Corpuscular Volume 90.2 fL (80.0-100.0); Mean Platelet Volume 8.7 fL (7.0-11.0); Mono # (Auto) 0.6 th/mm3 (0.0-0.9); Mono % (Auto) 7.6 % (0.0-8.0); Neut # (Auto) 6.2 th/mm3 (1.8-7.7); Neut % (Auto) 72.5 % (16.0-70.0); Platelet Count 173 th/mm3 (150-450); Red Blood Count 4.78 mil/mm3 (4.50-5.90); Red Cell Distribution Width 13.4 % (11.6-17.2); White Blood Count 8.5 th/mm3 (4.0-11.0)
--- NOTE | 2018-01-24 12:34 | XR ---
EXAM DATE: 01/24/2018 11:26 AM EDT AGE/SEX: 77 years / Male INDICATIONS: Cough. CLINICAL DATA: This is the patient's initial encounter. Patient reports that signs and symptoms have been present for 1 day and indicates a pain score of 0/10. MEDICAL/SURGICAL HISTORY: . Hypercholesterolemia. Hypertension. Syncope. Hyperlipidemia. Inguin al hernia. CABG. Appendectomy. Cholecystectomy. COMPARISON: [facility] – [place]ST SINGLE AP, 11/04/2016. . FINDINGS: Mild diffuse interstitial prominence with minimal bibasilar airspace disease. Median sternotomy wires and postsurgical features of prior CABG. Cardiac silhouette is enlarged with indistinct central pulm onary vascularity. Osseous structures are intact. CONCLUSION: 1. Cardiomegaly with positive fluid balance. 2. Minimal bibasilar airspace disease, likely atelectasis. Electronically signed by: Josse Stahl MD 01/24/2018 12:33 PM EDT
[2018-01-24 12:42] LABS: Activated Partial Thrombo Time 25.4 sec (24.3-30.1); INR 1.1 Ratio; Prothrombin Time 11.4 sec (9.8-11.6)
--- NOTE | 2018-01-24 12:47 | CT ---
EXAM DATE: 01/24/2018 11:51 AM EDT AGE/SEX: 77 years / Male INDICATIONS: Altered mental status. CLINICAL DATA: This is the patient's initial encounter. Patient reports that signs and symptoms have been present for 1 day and indicates a pain score of 0/10. MEDICAL/SURGICAL HISTORY: . Dementia. None. RADIATION DOSE: 56.35 CTDI (mGy) [place] [facility] [place]/17/[place]. . TECHNIQUE: CT of the head without contrast. Using automated exposure control and adjustment of the mA and/or kV according to patient size, radiation dose was kept as low as reasonably achievable to ob tain optimal diagnostic quality images. DICOM format image data is available electronically for revi ew and comparison. FINDINGS: Cerebrum: Moderate diffuse cerebral atrophy. The ventricles are normal for degree of atrophy. Modera te periventricular white matter hypodensities. Small bilateral basal ganglia hypodensities. No eviden ce of midline shift, mass lesion, hemorrhage or acute infarction. No extraaxial fluid collections ar e seen. Posterior Fossa: The cerebellum and brainstem are intact. The 4th ventricle is midline. The cerebe llopontine angle is unremarkable. Extracranial: The visualized portion of the orbits is intact. Skull: The calvaria is intact. No evidence of skull fracture. CONCLUSION: 1. Senescent changes with small remote bilateral basal ganglia infarcts. 2. No acute intracranial abnormality. . Electronically signed by: Josse Stahl MD 01/24/2018 12:45 PM EDT
[2018-01-24 12:57] LABS: Alkaline Phosphatase 87 U/L (45-117); Total Protein 7.1 g/dL (6.4-8.2); Troponin I 0.03 ng/mL (0.02-0.05)
[2018-01-24 12:58] LABS: Alanine Aminotransferase 30 U/L (12-78); Albumin 3.5 g/dL (3.4-5.0); Anion Gap 11 meq/L (5-15); Aspartate Aminotransferase 29 U/L (15-37); Blood Urea Nitrogen 15 mg/dL (7-18); Calcium 8.8 mg/dL (8.5-10.1); Carbon Dioxide 25.5 meq/L (21.0-32.0); Chloride 109 meq/L (98-107); Glomerular Filtration Rate 43 mL/min (>89); Glucose,Random 116 mg/dL (74-106); Potassium 3.5 meq/L (3.5-5.1); Sodium 145 meq/L (136-145)
--- NOTE | 2018-01-24 14:39 | P.HP ---
<Debbie Olmstead W - Last Filed: 01/24/18 15:49> History of Present Illness Primary Care Physician: Augustine Henderson MD Chief Complaint: accidental overdose History of Present Illness: This is a 77 year old male patient with a past medical history which includes HTN, dementia, depression, BPH, CVA and bipolar. Patient lives at home with his , who administers his medications due to his dementia. This morning while patient's was in the shower he found his pill bottles and took Losartan 200 mg, terazosin 5 mg, amlodipine 10 mg, Lexapro 20 mg and Seroquel 100 mg. Patient does not recall taking any medication. Patient is at bedside and helping provide information. Patient currently dozing on and off. Patient is able to awaken to voice then drifts off back to sleep unable to give meaningful history. Per patient's he initially reported not feeling well after taking the mediations. They proceeded to [facility] to eat breakfast then when he was getting back into the car he slumped down to the ground. Then 911 was called. upon 911 arrival patient's BP was in 90's systolic. Patient reports feeling tired, but offer no other complaints at this time. Patient denies fevers, chills, N/V/D/C, SOB or chest pain. PMH: HTN, dementia, depression, BPH, CVA and bipolar PSxH; CABG x 4 1989' cholecystectomy hernia repair decompression median nerve at carpal tunnel FMH: reviewed and noncontributory Social History: lives with who is his caregiver Hx of ETOH abuse quit drinking 22 years ago Kandy tobacco use - Diagnosis (1) Overdose Review of Systems unobtainable due to mental condition PMFSH - History History Provided By: Patient - Medical History Medical History: Medical History (Last Reviewed 01/24/18 @ 12:04 by ANITA Ram) Dementia Hernia Hyperlipemia Hypertension Surgical history unknown - Surgical History Surgical History: Surgical History (Last Reviewed 01/24/18 @ 12:04 by ANITA Ram) Hx of CABG - Tobacco History Second Hand Smoke Exposure: No Smoking Status: Never smoker - Alcohol History How Often Do You Have a Drink Containing Alcohol: Never - Substance Use History Substance History: No History of Abuse - Travel History Recent Travel in the [facility] Within the Last 8 Weeks: No Recent Travel Out of the Country Within the Last 8 Weeks: No - Immunization History Tetanus Immunization: <5 Years Medications and Allergies Allergies Allergy/AdvReac Type Severity Reaction Status Date / Time No Known Allergies Allergy Verified 01/24/18 11:44 Home Medications Medication Instructions Recorded Confirmed Type amlodipine 10 mg PO DAILY 01/24/18 01/24/18 History escitalopram oxalate 10 mg PO DAILY 01/24/18 01/24/18 History losartan 100 mg PO DAILY 01/24/18 01/24/18 History quetiapine 50 mg PO HS 01/24/18 01/24/18 History terazosin 5 mg PO HS 01/24/18 01/24/18 History Active Medications: Active Medications Sodium Chloride (Ns Inj) 1,000 mls @ 0 mls/hr IV.SIG BOLUS JESSY Last Infusion: 01/24/18 14:20 Dose: Infused Exam Vital signs: Vital Signs 01/24/18 11:34 01/24/18 11:51 01/24/18 11:52 Temperature 97.9 F Pulse Rate 70 73 72 Respiratory Rate 14 14 Blood Pressure 90/64 L 90/64 L Pulse Oximetry 94 L 96 96 01/24/18 11:53 01/24/18 13:21 Temperature Pulse Rate 70 Respiratory Rate 14 18 Blood Pressure 104/66 Pulse Oximetry 96 Intake & Output 01/23/18 01/24/18 01/24/18 18:59 06:59 18:59 Intake Total 1000 / 1000 Balance 1000 / 1000 Weight 90.718 kg Intake: IV 1000 / 1000 NS Inj 1,000 ML @ Wide Open IV. 1000 / 1000 SIG BOLUS [facility] Rx#:[id number] Narrative: GENERAL: This is a drowsy 77 year old male patient CARDIOVASCULAR: Regular rate and rhythm RESPIRATORY: Clear to auscultation. Breath sounds equal bilaterally. GASTROINTESTINAL: Abdomen soft, non-tender, nondistended. Normal active bowel sounds MUSCULOSKELETAL: Extremities without clubbing, cyanosis, or edema. NEURO: Drowsy able to awake then returns to sleep, unable to follow commands. Moves all ext x4 spontaneously Results - Labs CBC & Chem 7: 01/24/18 12:05 01/24/18 12:05 Labs: Laboratory Results - last 24 hr 01/24/18 01/24/18 01/24/18 12:05 12:05 12:05 WBC 8.5 RBC 4.78 Hgb 15.0 Hct 43.1 MCV 90.2 MCH 31.3 MCHC 34.7 RDW 13.4 Plt Count 173 MPV 8.7 Neut % (Auto) 72.5 H Lymph % (Auto) 16.5 Moody % (Auto) 7.6 Eos % (Auto) 2.2 Baso % (Auto) 1.2 Neut # (Auto) 6.2 Lymph # (Auto) 1.4 Moody # (Auto) 0.6 Eos # (Auto) 0.2 Baso # (Auto) 0.1 WBC Differential . Differential Comment Auto diff final PT 11.4 INR 1.1 APTT 25.4 Sodium 145 Potassium 3.5 Chloride 109 H Carbon Dioxide 25.5 Anion Gap 11 BUN 15 Creatinine 1.56 H Estimated GFR 43 L Random Glucose 116 H Lactic Acid Calcium 8.8 Total Bilirubin 1.1 H AST 29 ALT 30 Alkaline Phosphatase 87 Ammonia Troponin I 0.03 Total Protein 7.1 Albumin 3.5 TSH 2.100 01/24/18 01/24/18 12:05 12:05 WBC RBC Hgb Hct MCV MCH MCHC RDW Plt Count MPV Neut % (Auto) Lymph % (Auto) Moody % (Auto) Eos % (Auto) Baso % (Auto) Neut # (Auto) Lymph # (Auto) Moody # (Auto) Eos # (Auto) Baso # (Auto) WBC Differential Differential Comment PT INR APTT Sodium Potassium Chloride Carbon Dioxide Anion Gap BUN Creatinine Estimated GFR Random Glucose Lactic Acid 2.6 H Calcium Total Bilirubin AST ALT Alkaline Phosphatase Ammonia 20 Troponin I Total Protein Albumin TSH - Imaging Impressions Chest X-Ray 01/24/18 11:26 CONCLUSION: 1. Cardiomegaly with positive fluid balance. 2. Minimal bibasilar airspace disease, likely atelectasis. Head CT 01/24/18 11:26 CONCLUSION: 1. Senescent changes with small remote bilateral basal ganglia infarcts. 2. No acute intracranial abnormality. . Caprini VTE Risk Assessment Caprini VTE Risk Assessment: Moderate/High Risk (score >= 2) Caprini Risk Assessment Model: Point Value = 1 Point Value = 2 Point Value = 3 Point Value = 5 Age 41-60 Minor surgery BMI > 25 kg/m2 Swollen legs Varicose veins or History of unexplained or recurrent spontaneous Oral contraceptives or hormone replacement Sepsis (< 1 month) Serious lung disease, including pneumonia (< 1 month) Abnormal pulmonary function Acute myocardial infarction Congestive heart failure (< 1 month) History of inflammatory bowel disease Medical patient at bed rest Age 61-74 Arthroscopic surgery Major open surgery (> 45 min) Laparoscopic surgery (> 45 min) Malignancy Confined to bed (> 72 hours) Immobilizing plaster cast Central venous access Age >= 75 History of VTE Family history of VTE Factor V Leiden Prothrombin [id number] Lupus anticoagulant Anticardiolipin antibodies Elevated serum homocysteine Heparin-induced thrombocytopenia Other congenital or acquired thrombophilia Stroke (< 1 month) Elective arthroplasty Hip, pelvis, or leg fracture Acute spinal cord injury (< 1 month) Prophylaxis Regimen: Total Risk Factor Score Risk Level Prophylaxis Regimen 0-1 Low Early ambulation 2 Moderate Order ONE of the following: *Sequential Compression Device (SCD) *Heparin 5000 units SQ BID 3-4 Higher Order ONE of the following medications: *Heparin 5000 units SQ TID *Enoxaparin/Lovenox 40 mg SQ daily (WT < 150 kg, CrCl > 30 mL/min) *Enoxaparin/Lovenox 30 mg SQ daily (WT < 150 kg, CrCl > 10-29 mL/min) *Enoxaparin/Lovenox 30 mg SQ BID (WT < 150 kg, CrCl > 30 mL/min) AND/OR *Sequential Compression Device (SCD) 5 or more Highest Order ONE of the following medications: *Heparin 5000 units SQ TID (Preferred with Epidurals) *Enoxaparin/Lovenox 40 mg SQ daily (WT < 150 kg, CrCl > 30 mL/min) *Enoxaparin/Lovenox 30 mg SQ daily (WT < 150 kg, CrCl > 10-29 mL/min) *Enoxaparin/Lovenox 30 mg SQ BID (WT < 150 kg, CrCl > 30 mL/min) AND *Sequential Compression Device (SCD) Assessment and Plan - Assessment (1) Overdose Code(s): T50.901A - Poisoning by unspecified drugs, medicaments and biological substances, accidental (unintentional), initial encounter Status: Acute Plan: This is a 77 year old male patient with a past medical history which includes HTN, dementia, depression, BPH, CVA and bipolar. Patient lives at home with his , who administers his medications due to his dementia. This morning while patient's was in the shower he found his pill bottles and took Losartan 200 mg, terazosin 5 mg, amlodipine 10 mg, Lexapro 20 mg and Seroquel 100 mg. Patient does not recall taking any medication. Patient is at bedside and helping provide information. Patient currently dozing on and off. Patient is able to awaken to voice then drifts off back to sleep unable to give meaningful history. Per patient's he initially reported not feeling well after taking the mediations. They proceeded to [facility] to eat breakfast then when he was getting back into the car he slumped down to the ground. Then 911 was called. upon 911 arrival patient's BP was in 90's systolic. Patient reports feeling tired, but offer no other complaints at this time. Patient denies fevers, chills, N/V/D/C, SOB or chest pain. Accidental overdose Patient lives at home with his , who administers his medications due to his dementia. This morning while patient's was in the shower he found his pill bottles and took Losartan 200 mg, terazosin 5 mg, amlodipine 10 mg, Lexapro 20 mg and Seroquel 100 mg. Patient does not recall taking any medication. Patient is at bedside and helping provide information. Initial EKG reviwed and reveals: 1319 [id number], SR with 1st degree AV block no acute ischemic changes rate in the 70's repeat EKG 1457 QTc 452, SR with 1st degree AV block and PVCs admit patient for observation Continuous telemetry EKG in AM hold further home medications NPO at this time IVFs for hydration HTN Hold patient's home Losartan 100 mg dementia reorient as needed depression Hold patient's home Lexapro 10 mg Po daily BPH home patient's home terazosin 5 mg bipolar Hold home Seroquel DVT prophylaxis with SCDs <Tommy Payton - Last Filed: 01/29/18 14:03> History of Present Illness Primary Care Physician: Augustine Henderson MD - Diagnosis (1) Overdose [facility] - Medical History Medical History: Medical History (Last Reviewed 01/24/18 @ 12:04 by ANITA Ram) Dementia Hernia Hyperlipemia Hypertension Surgical history unknown - Surgical History Surgical History: Surgical History (Last Reviewed 01/24/18 @ 12:04 by ANITA Ram) Hx of CABG Results - Labs CBC & Chem 7: 01/25/18 06:45 01/25/18 06:45 Caprini VTE Risk Assessment Caprini Risk Assessment Model: Point Value = 1 Point Value = 2 Point Value = 3 Point Value = 5 Age 41-60 Minor surgery BMI > 25 kg/m2 Swollen legs Varicose veins or History of unexplained or recurrent spontaneous Oral contraceptives or hormone replacement Sepsis (< 1 month) Serious lung disease, including pneumonia (< 1 month) Abnormal pulmonary function Acute myocardial infarction Congestive heart failure (< 1 month) History of inflammatory bowel disease Medical patient at bed rest Age 61-74 Arthroscopic surgery Major open surgery (> 45 min) Laparoscopic surgery (> 45 min) Malignancy Confined to bed (> 72 hours) Immobilizing plaster cast Central venous access Age >= 75 History of VTE Family history of VTE Factor V Leiden Prothrombin [id number] Lupus anticoagulant Anticardiolipin antibodies Elevated serum homocysteine Heparin-induced thrombocytopenia Other congenital or acquired thrombophilia Stroke (< 1 month) Elective arthroplasty Hip, pelvis, or leg fracture Acute spinal cord injury (< 1 month) Prophylaxis Regimen: Total Risk Factor Score Risk Level Prophylaxis Regimen 0-1 Low Early ambulation 2 Moderate Order ONE of the following: *Sequential Compression Device (SCD) *Heparin 5000 units SQ BID 3-4 Higher Order ONE of the following medications: *Heparin 5000 units SQ TID *Enoxaparin/Lovenox 40 mg SQ daily (WT < 150 kg, CrCl > 30 mL/min) *Enoxaparin/Lovenox 30 mg SQ daily (WT < 150 kg, CrCl > 10-29 mL/min) *Enoxaparin/Lovenox 30 mg SQ BID (WT < 150 kg, CrCl > 30 mL/min) AND/OR *Sequential Compression Device (SCD) 5 or more Highest Order ONE of the following medications: *Heparin 5000 units SQ TID (Preferred with Epidurals) *Enoxaparin/Lovenox 40 mg SQ daily (WT < 150 kg, CrCl > 30 mL/min) *Enoxaparin/Lovenox 30 mg SQ daily (WT < 150 kg, CrCl > 10-29 mL/min) *Enoxaparin/Lovenox 30 mg SQ BID (WT < 150 kg, CrCl > 30 mL/min) AND *Sequential Compression Device (SCD) Assessment and Plan - Assessment (1) Overdose Code(s): T50.901A - Poisoning by unspecified drugs, medicaments and biological substances, accidental (unintentional), initial encounter Status: Acute Plan: This is a 77 year old male patient with a past medical history which includes HTN, dementia, depression, BPH, CVA and bipolar. Patient lives at home with his , who administers his medications due to his dementia. This morning while patient's was in the shower he found his pill bottles and took Losartan 200 mg, terazosin 5 mg, amlodipine 10 mg, Lexapro 20 mg and Seroquel 100 mg. Patient does not recall taking any medication. Patient is at bedside and helping provide information. Patient currently dozing on and off. Patient is able to awaken to voice then drifts off back to sleep unable to give meaningful history. Per patient's he initially reported not feeling well after taking the mediations. They proceeded to [facility] to eat breakfast then when he was getting back into the car he slumped down to the ground. Then 911 was called. upon 911 arrival patient's BP was in 90's systolic. Patient reports feeling tired, but offer no other complaints at this time. Patient denies fevers, chills, N/V/D/C, SOB or chest pain. Accidental overdose Patient lives at home with his , who administers his medications due to his dementia. This morning while patient's was in the shower he found his pill bottles and took Losartan 200 mg, terazosin 5 mg, amlodipine 10 mg, Lexapro 20 mg and Seroquel 100 mg. Patient does not recall taking any medication. Patient is at bedside and helping provide information. Initial EKG reviwed and reveals: 1319 [id number], SR with 1st degree AV block no acute ischemic changes rate in the 70's repeat EKG 1457 QTc 452, SR with 1st degree AV block and PVCs repeat EKG ordered 10/16 AM Qtc 448 Continuous telemetry IVFs DC'd regular diet resume BP medications Patient had elevated BP through the night likely secondary to agitation - reoriented at bedside clonidine as needed HTN resume patient's home Losartan 100 mg and amlodipine 10 mg PO daily repeat BP 146/81 dementia reorient as needed depression Hold patient's home Lexapro 10 mg Po daily BPH resume patient's home terazosin 5 mg bipolar resume home Seroquel Hypokalemia potassium 3.3 potassium chloride 20 meq x 1 prior to DC DVT prophylaxis with SCDs If BP and EKG acceptable plan to DC later today with HHC DC home in stable condition on regular diet with HHC resume home medications The exam, history, and the medical decision-making described in the above note were completed with the assistance of the mid-level provider. I reviewed and agree with the findings presented. I attest that I had a [id number] encounter with the patient on the same day, and personally performed and documented my assessment and findings in the medical record. <Debbie Olmstead - Last Filed: 01/24/18 15:49> (1) Overdose Qualifiers: Encounter type: initial encounter Injury intent: accidental or unintentional Qualified Code(s): T50.901A - Poisoning by unspecified drugs, medicaments and biological substances, accidental (unintentional), initial encounter <Tommy Payton - Last Filed: 01/29/18 14:03> (1) Overdose Qualifiers: Encounter type: initial encounter Injury intent: accidental or unintentional Qualified Code(s): T50.901A - Poisoning by unspecified drugs, medicaments and biological substances, accidental (unintentional), initial encounter
[2018-01-24] MEDS ORDERED: Sod Chloride 0.9% Inj 1,000 ML IV.CONT SCH (15:00)
[2018-01-24] MEDS: Senna/Docusate Sodium 8.6/50 MG Tablet PO SCH (21:00)
[2018-01-25 04:50] LABS: Amphetamine Screen,Urine Neg (Neg); Barbiturate Screen,Urine Neg (Neg); Cannabinoid Screen,Urine Neg (Neg); Cocaine Screen,Urine Neg (Neg)
[2018-01-25 04:51] LABS: Bilirubin,Urine Negative (Negative); Clarity,Urine Clear (Clear); Color,Urine Yellow (Yellw/Straw); Glucose,Urine (UA) Negative (Negative); Hyaline Casts,Urine 3 /lpf (0-3); Leukocyte Esterase,Urine Negative (Negative); Mucus,Urine Few /lpf (Occasional); Nitrite,Urine Negative (Negative); Specific Gravity,Urine 1.013 (1.002-1.035); Urobilinogen,Urine 4 or Greater mg/dL (Less than 2)
[2018-01-25 04:55] LABS: Opiate Screen,Urine Neg (Neg)
[2018-01-25 07:40] LABS: Baso # (Auto) 0.1 th/mm3 (0.0-0.2); Baso % (Auto) 1.3 % (0.0-2.0); Eos # (Auto) 0.3 th/mm3 (0.0-0.4); Hematocrit 38.2 % (39.0-51.0); Hemoglobin 13.3 gm/dL (13.0-17.0); Lymph # (Auto) 1.6 th/mm3 (1.0-4.8); Lymph % (Auto) 20.7 % (9.0-44.0); Mean Corpuscular HGB Conc 34.8 % (32.0-36.0); Mean Corpuscular Hemoglobin 31.6 pg (27.0-34.0); Mean Corpuscular Volume 90.6 fL (80.0-100.0); Mean Platelet Volume 8.2 fL (7.0-11.0); Mono # (Auto) 0.7 th/mm3 (0.0-0.9); Mono % (Auto) 8.8 % (0.0-8.0); Neut # (Auto) 4.9 th/mm3 (1.8-7.7); Neut % (Auto) 65.2 % (16.0-70.0); Platelet Count 139 th/mm3 (150-450); Red Blood Count 4.22 mil/mm3 (4.50-5.90); Red Cell Distribution Width 13.6 % (11.6-17.2); White Blood Count 7.6 th/mm3 (4.0-11.0)
--- NOTE | 2018-01-25 07:59 | P.DCO ---
- Physical Therapy Order: Evaluate and treat - Home Health Nursing Order: Medical education, Signs/symptoms of disease process - [employer] Order: To evaluate: Living conditions/environment, Support services Order: To provide: Long range planning, Community services - Case Management Consult No - Certification I have seen patient Zi Leary on 01/25/18. My clinical findings support the need for the requested home health care services because: Medication compliance is questionable, Limited ability to care for self I certify that my clinical findings support that this patient is homebound because: Impaired cognitive ability/safety
[2018-01-25 08:07] LABS: Albumin 3.2 g/dL (3.4-5.0); Anion Gap 9 meq/L (5-15); Aspartate Aminotransferase 21 U/L (15-37); Blood Urea Nitrogen 13 mg/dL (7-18); Calcium 8.3 mg/dL (8.5-10.1); Carbon Dioxide 23.7 meq/L (21.0-32.0); Chloride 111 meq/L (98-107); Glomerular Filtration Rate 71 mL/min (>89); Glucose,Random 99 mg/dL (74-106); Potassium 3.3 meq/L (3.5-5.1); Sodium 144 meq/L (136-145)
--- NOTE | 2018-01-25 08:09 | P.PNIM ---
Subjective Interval history: Follow up: accidental overdose Patient resting in bed awakes easily to voice, at bedside Patient offers no medical complaints at this time, wants to go home patient's reports he seems to be back to his baseline some agitation last night as patient wanted to go home and was not yet DC'd Physical Exam Vital signs: Vital Signs 01/24/18 11:34 01/24/18 11:51 01/24/18 11:52 Temperature 97.9 F Pulse Rate 70 73 72 Respiratory Rate 14 14 Blood Pressure 90/64 L 90/64 L Pulse Oximetry 94 L 96 96 01/24/18 11:53 01/24/18 13:21 01/24/18 14:50 Temperature Pulse Rate 70 77 Respiratory Rate 14 18 18 Blood Pressure 104/66 174/84 H Pulse Oximetry 96 95 01/24/18 14:51 01/24/18 16:00 01/24/18 20:00 Temperature 98.0 F 98.4 F Pulse Rate 61 63 Respiratory Rate 16 16 Blood Pressure 152/72 H 172/86 H Pulse Oximetry 98 94 L 93 L 01/25/18 00:00 01/25/18 04:00 01/25/18 07:44 Temperature 98.6 F 98.6 F 98.0 F Pulse Rate 68 69 63 Respiratory Rate 16 16 20 Blood Pressure 134/92 H 193/94 H 171/88 H Pulse Oximetry 94 L 93 L 96 Intake & Output 01/24/18 01/25/18 01/25/18 18:59 06:59 18:59 Intake Total 1100 / 1100 1000 / 1000 Balance 1100 / 1100 1000 / 1000 Weight 95.254 kg Intake: IV 1100 / 1100 1000 / 1000 NS Inj 1,000 ML @ 75 mls/hr IV. 1000 / 1000 CONT .[id number] JESSY Rx#:[id number] NS Inj 1,000 ML @ Wide Open IV. 1000 / 1000 SIG [facility] Rx#:[id number] Rocephin Inj 1,000 MG In NS Inj 100 / 100 100 ML @ 200 mls/hr IV.SIG ONCE ONE Rx#:[id number] Other: # Voids 0 Weight On Admission 95.254 kg Narrative: GENERAL: This is a 77 year old male patient with dementia, in no acute distress CARDIOVASCULAR: Regular rate and rhythm RESPIRATORY: Clear to auscultation. Breath sounds equal bilaterally. GASTROINTESTINAL: Abdomen soft, non-tender, nondistended. Normal active bowel sounds MUSCULOSKELETAL: Extremities without clubbing, cyanosis, or edema. NEURO: able to awake, oriented to person and place able to follow simple commands. Moves all ext x4 spontaneously Results - Labs CBC & Chem 7: 01/25/18 06:45 01/25/18 06:45 Laboratory Results - last 24 hr 01/24/18 01/24/18 01/24/18 12:05 12:05 12:05 WBC 8.5 RBC 4.78 Hgb 15.0 Hct 43.1 MCV 90.2 MCH 31.3 MCHC 34.7 RDW 13.4 Plt Count 173 MPV 8.7 Neut % (Auto) 72.5 H Lymph % (Auto) 16.5 [place] % (Auto) 7.6 Eos % (Auto) 2.2 Baso % (Auto) 1.2 Neut # (Auto) 6.2 Lymph # (Auto) 1.4 [place] # (Auto) 0.6 Eos # (Auto) 0.2 Baso # (Auto) 0.1 WBC Differential . Differential Comment Auto diff final PT 11.4 INR 1.1 APTT 25.4 Sodium 145 Potassium 3.5 Chloride 109 H Carbon Dioxide 25.5 Anion Gap 11 BUN 15 Creatinine 1.56 H Estimated GFR 43 L Random Glucose 116 H Lactic Acid Calcium 8.8 Total Bilirubin 1.1 H AST 29 ALT 30 Alkaline Phosphatase 87 Ammonia Troponin I 0.03 B-Natriuretic Peptide Total Protein 7.1 Albumin 3.5 TSH 2.100 Urine Color Urine Clarity Urine pH Ur Specific [place] Urine Protein Urine Glucose (UA) Urine Ketones Urine Occult Blood Urine Nitrate Urine Bilirubin Urine Urobilinogen Ur Leukocyte Esterase Urine RBC Hyaline Casts Urine Mucus Micro UA Comment Ur Microscopic Review Urine Culture Comments Urine Opiates Screen Ur Barbiturates Screen Ur Amphetamines Screen U Benzodiazepines Scrn Urine Cocaine Screen U Cannabinoids Screen Blood Type Blood Type Recheck Antibody Screen 01/24/18 01/24/18 01/24/18 12:05 12:05 12:05 WBC RBC Hgb Hct MCV MCH MCHC RDW Plt Count MPV Neut % (Auto) Lymph % (Auto) [place] % (Auto) Eos % (Auto) Baso % (Auto) Neut # (Auto) Lymph # (Auto) [place] # (Auto) Eos # (Auto) Baso # (Auto) WBC Differential Differential Comment PT INR APTT Sodium Potassium Chloride Carbon Dioxide Anion Gap BUN Creatinine Estimated GFR Random Glucose Lactic Acid 2.6 H Calcium Total Bilirubin AST ALT Alkaline Phosphatase Ammonia 20 Troponin I B-Natriuretic Peptide 203 H Total Protein Albumin TSH Urine Color Urine Clarity Urine pH Ur Specific [place] Urine Protein Urine Glucose (UA) Urine Ketones Urine Occult Blood Urine Nitrate Urine Bilirubin Urine Urobilinogen Ur Leukocyte Esterase Urine RBC Hyaline Casts Urine Mucus Micro UA Comment Ur Microscopic Review Urine Culture Comments Urine Opiates Screen Ur Barbiturates Screen Ur Amphetamines Screen U Benzodiazepines Scrn Urine Cocaine Screen U Cannabinoids Screen Blood Type Blood Type Recheck Antibody Screen 01/24/18 01/24/18 01/25/18 15:20 17:07 04:26 WBC RBC Hgb Hct MCV MCH MCHC RDW Plt Count MPV Neut % (Auto) Lymph % (Auto) [place] % (Auto) Eos % (Auto) Baso % (Auto) Neut # (Auto) Lymph # (Auto) [place] # (Auto) Eos # (Auto) Baso # (Auto) WBC Differential Differential Comment PT INR APTT Sodium Potassium Chloride Carbon Dioxide Anion Gap BUN Creatinine Estimated GFR Random Glucose Lactic Acid 1.5 Calcium Total Bilirubin AST ALT Alkaline Phosphatase Ammonia Troponin I B-Natriuretic Peptide Total Protein Albumin TSH Urine Color Urine Clarity Urine pH Ur Specific [place] Urine Protein Urine Glucose (UA) Urine Ketones Urine Occult Blood Urine Nitrate Urine Bilirubin Urine Urobilinogen Ur Leukocyte Esterase Urine RBC Hyaline Casts Urine Mucus Micro UA Comment Ur Microscopic Review Urine Culture Comments Urine Opiates Screen Neg Ur Barbiturates Screen Neg Ur Amphetamines Screen Neg U Benzodiazepines Scrn Neg Urine Cocaine Screen Neg U Cannabinoids Screen Neg Blood Type O Positive Blood Type Recheck Required Antibody Screen Negative 01/25/18 01/25/18 04:26 06:45 WBC 7.6 RBC 4.22 L Hgb 13.3 Hct 38.2 L MCV 90.6 MCH 31.6 MCHC 34.8 RDW 13.6 Plt Count 139 L MPV 8.2 Neut % (Auto) 65.2 Lymph % (Auto) 20.7 [place] % (Auto) 8.8 H Eos % (Auto) 4.0 Baso % (Auto) 1.3 Neut # (Auto) 4.9 Lymph # (Auto) 1.6 [place] # (Auto) 0.7 Eos # (Auto) 0.3 Baso # (Auto) 0.1 WBC Differential . Differential Comment Auto diff final PT INR APTT Sodium Potassium Chloride Carbon Dioxide Anion Gap BUN Creatinine Estimated GFR Random Glucose Lactic Acid Calcium Total Bilirubin AST ALT Alkaline Phosphatase Ammonia Troponin I B-Natriuretic Peptide Total Protein Albumin TSH Urine Color Yellow Urine Clarity Clear Urine pH 6.0 Ur Specific [place] 1.013 Urine Protein Negative Urine Glucose (UA) Negative Urine Ketones Negative Urine Occult Blood Negative Urine Nitrate Negative Urine Bilirubin Negative Urine Urobilinogen 4 or greater Ur Leukocyte Esterase Negative Urine RBC 1 Hyaline Casts 3 Urine Mucus Few H Micro UA Comment Culture not ind Ur Microscopic Review Not Reportable Urine Culture Comments Culture not ind Urine Opiates Screen Ur Barbiturates Screen Ur Amphetamines Screen U Benzodiazepines Scrn Urine Cocaine Screen U Cannabinoids Screen Blood Type Blood Type Recheck Antibody Screen - Imaging Impressions Chest X-Ray 01/24/18 11:26 CONCLUSION: 1. Cardiomegaly with positive fluid balance. 2. Minimal bibasilar airspace disease, likely atelectasis. Head CT 01/24/18 11:26 CONCLUSION: 1. Senescent changes with small remote bilateral basal ganglia infarcts. 2. No acute intracranial abnormality. . Assessment and Plan - Assessment (1) Overdose Code(s): T50.901A - Poisoning by unspecified drugs, medicaments and biological substances, accidental (unintentional), initial encounter Status: Acute Plan: This is a 77 year old male patient with a past medical history which includes HTN, dementia, depression, BPH, CVA and bipolar. Patient lives at home with his , who administers his medications due to his dementia. This morning while patient's was in the shower he found his pill bottles and took Losartan 200 mg, terazosin 5 mg, amlodipine 10 mg, Lexapro 20 mg and Seroquel 100 mg. Patient does not recall taking any medication. Patient is at bedside and helping provide information. Patient currently dozing on and off. Patient is able to awaken to voice then drifts off back to sleep unable to give meaningful history. Per patient's he initially reported not feeling well after taking the mediations. They proceeded to [facility] to eat breakfast then when he was getting back into the car he slumped down to the ground. Then 911 was called. upon 911 arrival patient's BP was in 90's systolic. Patient reports feeling tired, but offer no other complaints at this time. Patient denies fevers, chills, N/V/D/C, SOB or chest pain. Accidental overdose Patient lives at home with his , who administers his medications due to his dementia. This morning while patient's was in the shower he found his pill bottles and took Losartan 200 mg, terazosin 5 mg, amlodipine 10 mg, Lexapro 20 mg and Seroquel 100 mg. Patient does not recall taking any medication. Patient is at bedside and helping provide information. Initial EKG reviwed and reveals: [id number], SR with 1st degree AV block no acute ischemic changes rate in the 70's repeat EKG 1457 QTc 452, SR with 1st degree AV block and PVCs repeat EKG ordered 01/25 AM Qtc 448 Continuous telemetry IVFs DC'd regular diet resume BP medications Patient had elevated BP through the night likely secondary to agitation - reoriented at bedside clonidine as needed HTN resume patient's home Losartan 100 mg and amlodipine 10 mg PO daily repeat BP 146/81 dementia reorient as needed depression Hold patient's home Lexapro 10 mg Po daily BPH resume patient's home terazosin 5 mg bipolar resume home Seroquel Hypokalemia potassium 3.3 potassium chloride 20 meq x 1 prior to DC DVT prophylaxis with SCDs If BP and EKG acceptable plan to DC later today with [facility] DC home in stable condition on regular diet with [facility] resume home medications (1) Overdose Qualifiers: Encounter type: initial encounter Injury intent: accidental or unintentional Qualified Code(s): T50.901A - Poisoning by unspecified drugs, medicaments and biological substances, accidental (unintentional), initial encounter
[2018-01-25 08:13] LABS: Alanine Aminotransferase 23 U/L (12-78); Alkaline Phosphatase 75 U/L (45-117); Total Protein 6.2 g/dL (6.4-8.2)
[2018-01-25] MEDS ORDERED: amLODIPine 10 MG Tablet PO SCH (09:00)
[2018-01-25] MEDS: Senna/Docusate Sodium 8.6/50 MG Tablet PO SCH (10:45)
[2018-01-25 11:42] VITALS: BP 146/81; PULSE 73; RESP 18; TEMP 97.6; O2SAT 95
--- NOTE | 2018-01-25 19:57 | ECG ---
Date Performed: 01/24/2018 Time Performed: 13:19:27 PTAGE: 77 years EKG: Sinus rhythm MODERATE INTRAVENTRICULAR CONDUCTION DELAY NONSPECIFIC ST & T-WAVE ABNORMALITY Since previous tracin g, no significant change noted BORDERLINE ECG PREVIOUS TRACING : 04/17/2017 11.55 DOCTOR: Ericka Saunders Interpretating Date/Time 01/25/2018 19:54:56
--- NOTE | 2018-01-25 19:57 | ECG ---
Date Performed: 01/24/2018 Time Performed: 14:57:05 PTAGE: 77 years EKG: Sinus rhythm WITH FIRST DEGREE AV BLOCK WITH FREQUENT VENTRICULAR PREMATURE COMPLEXES NONSPECIFIC ST & T-WAVE ABN ORMALITY Since previous tracing, no significant change noted ABNORMAL ECG PREVIOUS TRACING : 01/24/2018 13.19 DOCTOR: Ericka Saunders Interpretating Date/Time 01/25/2018 19:55:05
--- NOTE | 2018-01-25 19:58 | ECG ---
Date Performed: 01/25/2018 Time Performed: 08:10:54 PTAGE: 77 years EKG: SINUS BRADYCARDIA WITH FIRST DEGREE AV BLOCK MODERATE INTRAVENTRICULAR CONDUCTION DELAY NON SPECIFIC ST & T-WAVE ABNORMALITY Since previous tracing, no significant change noted ABNORMAL ECG PREVIOUS TRACING : 01/24/2018 17.24 DOCTOR: Ericka Saunders Interpretating Date/Time 01/25/2018 19:56:53
--- NOTE | 2018-01-25 19:58 | ECG ---
Date Performed: 01/24/2018 Time Performed: 17:24:37 PTAGE: 77 years EKG: Sinus rhythm NONSPECIFIC ST & T-WAVE ABNORMALITY PROLONGED QT INTERVAL Since previous tracing, no significant rosa nge noted ABNORMAL ECG PREVIOUS TRACING : 01/24/2018 14.57.05 DOCTOR: Ericka Saunders Interpretating Date/Time 01/25/2018 19:56:30
[2018-01-25] MEDS ORDERED: QUEtiapine 25 MG Tablet PO SCH (21:00)
== END 2018-01-25 13:28 | disposition home health service (06) ==
LOC: NEDA 11:14 → NEPC 11:14 → NEPFCDU 15:31
PROVIDERS: ADMIT Hospitalist; ATTEND Hospitalist

== ENCOUNTER 2018-02-25 12:15 | Observation (INO) ==
[2018-02-25] MEDS ORDERED: Sod Chloride 0.9% Inj 1,000 ML IV.SIG ONE (13:02)
--- NOTE | 2018-02-25 13:08 | ED ---
HPI General Chief Complaint: Syncope Stated Complaint: Poss Syncope Time Seen by Provider: 02/25/18 12:48 History of Present Illness HPI narrative: This patient has had 2 syncopal episodes today. The first happened when he was visiting his son at a jail where he is recovering. The second happened on the way home when he stopped at a gas station. Both times he got dizzy and lightheaded and did not feel well. He lost consciousness and slumped over both times but no injury occurred. No seizure activity was seen. His was a witness to the events. He did not have any chest pain. Severity was moderate. At this time he feels reasonably okay. His blood pressure is 99 systolic at this time. He is on antihypertensives and his gave him his medicine but the patient thinks that he also took a dose of his medicine. No alleviating factors. Symptoms possibly exacerbated by extra blood pressure medication. There is no intentional overdose. Duration 1 day Related Data Home Medications Medication Instructions Recorded Confirmed amlodipine 10 mg PO DAILY 01/24/18 02/25/18 escitalopram oxalate 10 mg PO DAILY 01/24/18 02/25/18 losartan 100 mg PO DAILY 01/24/18 02/25/18 quetiapine 50 mg PO HS 01/24/18 02/25/18 terazosin 5 mg PO HS 01/24/18 02/25/18 Allergies Allergy/AdvReac Type Severity Reaction Status Date / Time No Known Allergies Allergy Verified 01/24/18 11:44 Review of Systems ROS: all other systems reviewed are negative [facility] Medical History Medical History Dementia (Acute) Hernia (Acute) Hyperlipemia (Acute) Hypertension (Acute) Surgical History Surgical History History of open heart surgery (Acute) Hx of CABG (Acute) Social History Social History Substance History: No History of Abuse Second Hand Smoke Exposure: No Smoking Status: Current some day smoker Tobacco Type: Smokeless Tobacco How Often Do You Have a Drink Containing Alcohol: Monthly or less Recent Travel in [facility] within the Last 8 Weeks: No Recent Out of Country Travel within the Last 8 Weeks: No Immunization History Tetanus Immunization: Unsure Exam Narrative Exam Narrative: GENERAL: Well-nourished, well-developed patient in no apparent distress. SKIN: Focused skin assessment reveals no rash and nodules. Skin is Warm and dry. HEAD: Atraumatic. Normocephalic. EYES: Pupils equal and round. No scleral icterus. No injection or drainage. ENT: No nasal bleeding or discharge. Mucous membranes pink and moist. NECK: Trachea midline. No JVD. CARDIOVASCULAR: Regular rate and rhythm. No murmur appreciated. RESPIRATORY: No accessory muscle use. Clear to auscultation. Breath sounds equal bilaterally. GASTROINTESTINAL: Abdomen soft, non-tender, nondistended. Hepatic and splenic margins not palpable. MUSCULOSKELETAL: No obvious deformities. No clubbing. No cyanosis. No edema. NEUROLOGICAL: Awake and alert. No obvious cranial nerve deficits. Motor grossly within normal limits. Normal speech. PSYCHIATRIC: Appropriate mood and affect; insight and judgment normal. Course Initial Documented Vital Signs Temperature 97.6 F 02/25/18 12:24 Pulse Rate 72 02/25/18 12:24 Respiratory Rate 16 02/25/18 12:24 Blood Pressure 111/56 L 02/25/18 12:24 Pulse Oximetry 95 02/25/18 12:24 Last Documented Vital Signs Temperature 97.6 F 02/25/18 12:24 Pulse Rate 70 02/25/18 13:07 Respiratory Rate 16 02/25/18 12:37 Blood Pressure 103/56 L 02/25/18 12:37 Pulse Oximetry 93 L 02/25/18 12:37 Medical Decision Making MDM Narrative Medical decision making narrative: 77-year-old male who 2 syncopal episodes today he presents with hypotension and may have taken an extra dose of blood pressure medication. Is not entirely clear at this point. Giving him some IV fluids and keeping him on telemetry monitoring. Labs have been sent. Given his complaints of headache also I have ordered brain CT. Given his age of 77 with multiple syncopal episodes and known cardiac disease, he has had bypass grafting, he will likely require telemetry observation. Turns out he had a hospital stay a month ago for very similar presentation. I did review this with Dr. Payton. Medical Screen Exam Complete: Yes Emergency Medical Condition: Yes Lab Data Result diagrams: 02/25/18 13:10 02/25/18 13:55 Lab Results 02/25/18 Range/Units 13:10 WBC 9.7 (4.0-11.0) th/mm3 RBC 4.66 (4.50-5.90) mil/mm3 Hgb 15.3 (13.0-17.0) gm/dL Hct 42.4 (39.0-51.0) % MCV 91.0 (80.0-100.0) fL MCH 32.7 (27.0-34.0) pg MCHC 35.9 (32.0-36.0) % RDW 13.9 (11.6-17.2) % Plt Count 183 (150-450) th/mm3 MPV 8.9 (7.0-11.0) fL Neut % (Auto) 79.6 H (16.0-70.0) % Lymph % (Auto) 11.8 (9.0-44.0) % [place] % (Auto) 7.0 (0.0-8.0) % Eos % (Auto) 1.0 (0.0-4.0) % Baso % (Auto) 0.6 (0.0-2.0) % Neut # (Auto) 7.7 (1.8-7.7) th/mm3 Lymph # (Auto) 1.1 (1.0-4.8) th/mm3 [place] # (Auto) 0.7 (0.0-0.9) th/mm3 Eos # (Auto) 0.1 (0.0-0.4) th/mm3 Baso # (Auto) 0.1 (0.0-0.2) th/mm3 WBC Differential . Differential Comment Auto diff final Imaging Data Radiologist's impression: Head CT 02/25/18 13:03 CONCLUSION: 1. Cortical atrophy and microvascular ischemic demyelinative change. 2. No acute intracranial abnormality seen. . Discharge Plan Discharge Disposition Patient Disposition: 30 Still Patient Discharge Details Diagnosis: Syncope, Acute hypotension Physicians Team ED Provider: Markos Castellanos Primary Care Provider: Augustine Henderson Rxs /Orders / Referrals /Forms Prescriptions: No Action terazosin 5 mg Capsule 5 mg PO HS RF: 0 amlodipine 10 mg Tablet 10 mg PO DAILY RF: 0 losartan 100 mg Tablet 100 mg PO DAILY RF: 0 escitalopram oxalate 10 mg Tablet 10 mg PO DAILY RF: 0 quetiapine 50 mg Tablet 50 mg PO HS RF: 0 Discharge Interventions Interventions: Vital Signs Last Done: 02/25/18 12:37 Status ED Status: With Doctor
[2018-02-25 13:22] LABS: Baso # (Auto) 0.1 th/mm3 (0.0-0.2); Baso % (Auto) 0.6 % (0.0-2.0); Eos # (Auto) 0.1 th/mm3 (0.0-0.4); Hematocrit 42.4 % (39.0-51.0); Hemoglobin 15.3 gm/dL (13.0-17.0); Lymph # (Auto) 1.1 th/mm3 (1.0-4.8); Lymph % (Auto) 11.8 % (9.0-44.0); Mean Corpuscular HGB Conc 35.9 % (32.0-36.0); Mean Corpuscular Hemoglobin 32.7 pg (27.0-34.0); Mean Platelet Volume 8.9 fL (7.0-11.0); Mono # (Auto) 0.7 th/mm3 (0.0-0.9); Neut # (Auto) 7.7 th/mm3 (1.8-7.7); Neut % (Auto) 79.6 % (16.0-70.0); Platelet Count 183 th/mm3 (150-450); Red Blood Count 4.66 mil/mm3 (4.50-5.90); Red Cell Distribution Width 13.9 % (11.6-17.2); White Blood Count 9.7 th/mm3 (4.0-11.0)
--- NOTE | 2018-02-25 13:52 | CT ---
EXAM DATE: 02/25/2018 1:40 PM EST AGE/SEX: 77 years / Male INDICATIONS: Light headed, near syncope, hypotensive. CLINICAL DATA: This is the patient's initial encounter. Patient reports that signs and symptoms have been present for 1 day and indicates a pain score of 3/10. MEDICAL/SURGICAL HISTORY: Dementia. Hypertension. CABG. RADIATION DOSE: 44.74 CTDI (mGy) COMPARISON: [facility] [place] HEAD W/O CONTRAST, 01/24/2018. . TECHNIQUE: CT of the head without contrast. Using automated exposure control and adjustment of the mA and/or kV according to patient size, radiation dose was kept as low as reasonably achievable to ob tain optimal diagnostic quality images. DICOM format image data is available electronically for revi ew and comparison. FINDINGS: The examination demonstrates mild cortical atrophy. There is a punctate lacunar infarct in the basal ganglia on the right. There is no acute intracranial hemorrhage. No mass lesion is identified. No abnormal extra-axial flui d collections are seen. The cerebellar hemispheres are intact. The fourth ventricle is midline. The brainstem is intact. The cerebral pontine angles are unremarkable in appearance. Note is made of moderate atherosclerotic calcification involving the basilar artery and the proximal right middle cerebral. The osseous structures of the skull are intact. Note is made of a 1.1 cm calcified sebaceous cyst in the right side of the scalp. CONCLUSION: 1. Cortical atrophy and microvascular ischemic demyelinative change. 2. No acute intracranial abnormality seen. . Electronically signed by: Gt Coffey MD 02/25/2018 1:51 PM EST
[2018-02-25 14:34] LABS: Calcium 8.2 mg/dL (8.5-10.1)
[2018-02-25 14:44] LABS: Potassium 3.6 meq/L (3.5-5.1)
[2018-02-25] MEDS ORDERED: Acetaminophen 325 MG Tablet PO PRN (15:59)
[2018-02-25] MEDS ORDERED: Bisacodyl 10 MG Supp RECTAL PRN (15:59)
--- NOTE | 2018-02-25 16:42 | P.HPIM ---
History of Present Illness Primary Care Physician: Augustine Henderson MD Medications and Allergies Allergies Allergy/AdvReac Type Severity Reaction Status Date / Time No Known Allergies Allergy Verified 01/24/18 11:44 Home Medications Medication Instructions Recorded Confirmed Type amlodipine 10 mg PO DAILY 01/24/18 02/25/18 History escitalopram oxalate 10 mg PO DAILY 01/24/18 02/25/18 History losartan 100 mg PO DAILY 01/24/18 02/25/18 History quetiapine 50 mg PO HS 01/24/18 02/25/18 History terazosin 5 mg PO HS 01/24/18 02/25/18 History Active Medications: Active Medications Acetaminophen (Tylenol) 650 mg PO Q4H PRN PRN Reason: Temp > 100.4 Bisacodyl (Dulcolax Supp) 10 mg RECTAL DAILY PRN PRN Reason: SEVERE CONSITIPATION Enoxaparin Sodium (Lovenox Inj) 40 mg SQ Q24H JESSY Lactulose (Lactulose Liq) 30 ml PO DAILY PRN PRN Reason: SEVERE CONSITIPATION Ondansetron HCl (Zofran Inj) 4 mg IV.PUSH Q6H PRN PRN Reason: NAUSEA OR VOMITING Sennosides (Senokot) 17.2 mg PO Q12H PRN PRN Reason: Moderate Constipation Physical Exam Vital signs: Last Vital Signs Temp 97.6 F 02/25/18 12:24 Pulse 84 02/25/18 15:27 Resp 15 02/25/18 15:27 BP 136/63 02/25/18 15:27 Pulse Ox 95 02/25/18 15:27 Results Labs CBC & Chem 7: 02/25/18 13:10 02/25/18 13:55 Caprini VTE Risk Assessment Caprini Risk Assessment Model: Point Value = 1 Point Value = 2 Point Value = 3 Point Value = 5 Age 41-60 Minor surgery BMI > 25 kg/m2 Swollen legs Varicose veins or History of unexplained or recurrent spontaneous Oral contraceptives or hormone replacement Sepsis (< 1 month) Serious lung disease, including pneumonia (< 1 month) Abnormal pulmonary function Acute myocardial infarction Congestive heart failure (< 1 month) History of inflammatory bowel disease Medical patient at bed rest Age 61-74 Arthroscopic surgery Major open surgery (> 45 min) Laparoscopic surgery (> 45 min) Malignancy Confined to bed (> 72 hours) Immobilizing plaster cast Central venous access Age >= 75 History of VTE Family history of VTE Factor V Leiden Prothrombin [id number] Lupus anticoagulant Anticardiolipin antibodies Elevated serum homocysteine Heparin-induced thrombocytopenia Other congenital or acquired thrombophilia Stroke (< 1 month) Elective arthroplasty Hip, pelvis, or leg fracture Acute spinal cord injury (< 1 month) Prophylaxis Regimen: Total Risk Factor Score Risk Level Prophylaxis Regimen 0-1 Low Early ambulation 2 Moderate Order ONE of the following: *Sequential Compression Device (SCD) *Heparin 5000 units SQ BID 3-4 Higher Order ONE of the following medications: *Heparin 5000 units SQ TID *Enoxaparin/Lovenox 40 mg SQ daily (WT < 150 kg, CrCl > 30 mL/min) *Enoxaparin/Lovenox 30 mg SQ daily (WT < 150 kg, CrCl > 10-29 mL/min) *Enoxaparin/Lovenox 30 mg SQ BID (WT < 150 kg, CrCl > 30 mL/min) AND/OR *Sequential Compression Device (SCD) 5 or more Highest Order ONE of the following medications: *Heparin 5000 units SQ TID (Preferred with Epidurals) *Enoxaparin/Lovenox 40 mg SQ daily (WT < 150 kg, CrCl > 30 mL/min) *Enoxaparin/Lovenox 30 mg SQ daily (WT < 150 kg, CrCl > 10-29 mL/min) *Enoxaparin/Lovenox 30 mg SQ BID (WT < 150 kg, CrCl > 30 mL/min) AND *Sequential Compression Device (SCD)
[2018-02-25] MEDS: Sod Chloride 0.9% Inj 1,000 ML IV.CONT SCH (18:23)
[2018-02-25] MEDS ORDERED: QUEtiapine 25 MG Tablet PO SCH (21:00)
[2018-02-26 07:14] LABS: Baso # (Auto) 0.1 th/mm3 (0.0-0.2); Baso % (Auto) 1.1 % (0.0-2.0); Eos # (Auto) 0.3 th/mm3 (0.0-0.4); Eos % (Auto) 4.3 % (0.0-4.0); Hematocrit 39.7 % (39.0-51.0); Lymph # (Auto) 1.4 th/mm3 (1.0-4.8); Mean Corpuscular HGB Conc 35.2 % (32.0-36.0); Mean Corpuscular Hemoglobin 31.8 pg (27.0-34.0); Mean Corpuscular Volume 90.3 fL (80.0-100.0); Mean Platelet Volume 7.9 fL (7.0-11.0); Mono # (Auto) 0.5 th/mm3 (0.0-0.9); Mono % (Auto) 8.2 % (0.0-8.0); Neut # (Auto) 4.2 th/mm3 (1.8-7.7); Neut % (Auto) 64.4 % (16.0-70.0); Platelet Count 152 th/mm3 (150-450); Red Cell Distribution Width 13.9 % (11.6-17.2); White Blood Count 6.6 th/mm3 (4.0-11.0)
[2018-02-26 07:28] VITALS: RESP 16
[2018-02-26 07:34] LABS: Calcium 8.4 mg/dL (8.5-10.1); Carbon Dioxide 24.7 meq/L (21.0-32.0); Potassium 3.1 meq/L (3.5-5.1)
[2018-02-26] MEDS ORDERED: Potassium Chloride 10 MEQ ER Capsule PO ONE (07:51)
--- NOTE | 2018-02-26 08:43 | P.PNIM ---
Subjective Interval history: Pt reports that he did not sleep well last night. No issues overnight per nursing staff Pts HR on telemetry is in the 60's with frequent PVCs Physical Exam Vital signs: Last Vital Signs Temp 98.1 F 02/26/18 07:26 Pulse 59 L 02/26/18 07:26 Resp 16 02/26/18 07:26 BP 159/82 H 02/26/18 07:26 Pulse Ox 94 L 02/26/18 07:26 Narrative: General: NAD, AAOx3 Chest: CTA Cardiac: Irregular Abd: +BS, soft ND/NT Ext: No edema Results Labs CBC & Chem 7: 02/26/18 07:00 02/26/18 07:[address] 02/25/18 13:03 CONCLUSION: 1. Cortical atrophy and microvascular ischemic demyelinative change. 2. No acute intracranial abnormality seen. . Assessment and Plan Assessment (1) Acute hypotension: Code(s): I95.9 - Hypotension, unspecified Status: Acute (2) Syncope: Code(s): R55 - Syncope and collapse Status: Acute (3) Overdose: Code(s): T50.901A - Poisoning by unspecified drugs, medicaments and biological substances , accidental (unintentional), initial encounter Status: Acute Plan Syncope Possible accidental overdose - Pt is a 77 y/o male with HTN, dementia, depression, BPH, CVA and bipolar disorder. Patient lives at home with his , who administers his medications due to his dementia. Pt was recently admitted a few weeks ago with similar issues of near syncope/hypotension related to an accidental overdose. At that time the pt had accidentally taken an extra dose of all of his medications, including Losartan 100 mg, terazosin 5 mg, amlodipine 10 mg, Lexapro 20 mg and Seroquel 100 mg. At discharge his reportedly was going to take tighter control on his medications. Pt presented back to the ED at [facility] on 02/25/18 again after two syncopal episodes and reported hypotension. It was reported to the ED physician that the patient may have again taken extra doses of his medication but that is not totally clear. - Pts BP in the ED noted systolic BP in the 90s and he was given IVF with improvement - IVFs DC'd today - Pt on continuous telemetry with noted NSR in the 60's with frequent PVCs - Regular diet - Resume BP medications as his BP is in the 160's this morning. - Discussed the case with the pts prior to discharge and she feels that he is back to baseline. She states that she plans to keep his medications under lock and herrera as she also believes that he took an extra dose of medication yesterday but she is unclear which ones. - We will arrange for HHC/PT following discharge. - Pt is to followup with his PCP, Dr. Henderson, in 1 week, call for that appt. HTN - Resume patient's home Losartan 100 mg and amlodipine 10 mg PO daily - BP this morning of 159/82 Dementia - reorient as needed Depression - Lexapro 10 mg Po daily BPH - Resume patient's home terazosin 5 mg Bipolar - resume home Seroquel Hypokalemia - potassium 3.1 - Potassium chloride 40 meq x 1 this morning Progress Note: Quality VTE Deep Vein Thrombosis/Pulmonary Embolism Present on Admission: No _ (1) Overdose Qualifiers: Encounter type: initial encounter Injury intent: accidental or unintentional Qualified Code(s): T50.901A - Poisoning by unspecified drugs, medicaments and biological substances, accidental (unintentional), initial encounter (2) Syncope Qualifiers: Encounter type: Syncope type:
[2018-02-26] MEDS ORDERED: Escitalopram 10 MG Tablet PO SCH (09:00)
[2018-02-26] MEDS ORDERED: amLODIPine 10 MG Tablet PO SCH (09:00)
[2018-02-26] MEDS ORDERED: Enoxaparin Inj 40 MG/0.4 ML Syringe SQ SCH (09:00)
[2018-02-26] MEDS: Sod Chloride 0.9% Inj 1,000 ML IV.CONT SCH (10:18)
[2018-02-26 11:57] VITALS: BP 106/67; PULSE 71; TEMP 97.9; O2SAT 93
--- NOTE | 2018-02-26 12:14 | P.DCO ---
Diagnosis (1) Acute hypotension: Status: Acute (2) Syncope: Status: Acute (3) Overdose: Status: Acute Physical Therapy Order: Evaluate and treat, Improve ambulation and Strength and gait training Home Health Nursing Order: Medical education, Medication education-adverse effect and Nursing assessment with vital signs Case Management Consult Case Management Consult-Home Health: Yes I have seen patient Zi Leary on 02/26/18. My clinical findings support the need for the requested home health care services because: Deconditioned with increased weakness, Impaired cognition/judgement and High risk of falls I certify that my clinical findings support that this patient is homebound because: Impaired cognitive ability/safety and Unsteady gait/balance _ (1) Overdose Qualifiers: Encounter type: initial encounter Injury intent: accidental or unintentional Qualified Code(s): T50.901A - Poisoning by unspecified drugs, medicaments and biological substances, accidental (unintentional), initial encounter (2) Syncope Qualifiers: Encounter type: Syncope type:
--- NOTE | 2018-02-26 16:17 | ECG ---
Date Performed: 02/25/2018 Time Performed: 12:28:14 PTAGE: 77 years EKG: Sinus rhythm WITH PAC'S Slight intraventricular conduction disturbance Poor initial anterior forces in V1 and V2, probably normal variance PREVIOUS TRACING : 01/25/2018 08.10 Compared to previous tracing,the PAC's are new. R-for ce somewhat diminshed in Lead V2 which may be due to lead placement DOCTOR: Tommy Knapp Interpretating Date/Time 02/26/2018 16:16:27
== END 2018-02-26 14:21 | disposition home health service (06) ==
LOC: NEDA 12:15 → NEPE 12:15 → NEPFCDU 17:11
PROVIDERS: ADMIT Hospitalist; ATTEND Hospitalist
DX: E87.6 Hypokalemia; E78.5 Hyperlipidemia, unspecified; Z79.899 Other long term (current) drug therapy; N40.0 Benign prostatic hyperplasia without lower urinary tract symptoms; I49.3 Ventricular premature depolarization; R55 Syncope and collapse; F03.90 Unspecified dementia, unspecified severity, without behavioral disturbance, psychotic disturbance, mood disturbance, and anxiety; F31.9 Bipolar disorder, unspecified; I10 Essential (primary) hypertension; Z95.1 Presence of aortocoronary bypass graft; L72.3 Sebaceous cyst; I67.2 Cerebral atherosclerosis; R51 Headache; G31.9 Degenerative disease of nervous system, unspecified